=== PATIENT | female | born 1970 | race Two or more races ===

== ENCOUNTER → 2020-03-10 12:02 | Outpatient (BNVA) | payer OTHER, SELFPAY | PROVIDERS: PCP Family Medicine; Referring Provider Family Medicine; Visit Provider Physician Assistant | DX: T84.84XA Pain due to internal orthopedic prosthetic devices, implants and grafts, initial encounter (principal); E11.69 Type 2 diabetes mellitus with other specified complication; F17.200 Nicotine dependence, unspecified, uncomplicated | CPT/HCPCS: 99213 ==

== ENCOUNTER 2020-07-01 14:19 | Inpatient (IN) | payer OTHER, SELFPAY ==
[2020-07-01] VITALS (11 sets, daily range): BP systolic 159–178; BP diastolic 19–88; PULSE 82–114; RESP 16–18; TEMP 36.7–37.2; O2SAT 97–99; BMI 27.1
--- NOTE | 2020-07-01 14:26 | ED.SKABFB ---
HPI - Skin/Abscess/Foreign Bdy General Chief complaint: Extremity Problem Stated complaint: FOOT INFECTION Time Seen by Provider: 07/01/20 14:26 Source: patient Mode of arrival: ambulatory Limitations: no limitations History of Present Illness HPI narrative: L foot erythema and pain - hx of same in past, has had R TM amputation at [facility] noted since 06/22 has had worsening L foot pain/swelling and yellow filled blisters, has not been able to get into wound clinic MD complaint: abscess/boil and lesion Onset (ago): week(s) (1) Tetanus up to date: yes Location: L foot Severity: moderate Quality: burning Pain Consistency: constant Relieving factors: none Exacerbating factors: movement Context: other (hx of chronic infection ) Associated symptoms: fever, chills and nausea Treatments prior to arrival: bandages Related Data Home Medications Medication Instructions Recorded Confirmed gabapentin 100 mg capsule 100 mg PO BEDTIME 03/01/20 07/01/20 methadone 40 mg soluble tablet 47 mg PO DAILY 03/01/20 07/01/20 quetiapine 25 mg tablet 25 mg PO DAILY 03/01/20 07/01/20 sennosides 8.6 mg tablet 8.6 mg PO BEDTIME 03/01/20 07/01/20 alprazolam 1 - 2 mg PO DAILY 07/01/20 07/01/20 docusate sodium 100 mg PO DAILY 07/01/20 07/01/20 trazodone 100 - 200 mg PO BEDTIME PRN 07/01/20 07/01/20 Allergies Allergy/AdvReac Type Severity Reaction Status Date / Time No Known Allergies Allergy Verified 03/10/20 13:02 [No Known Allergies*] Review of Systems Review of Systems: Constitutional : pos Fever, pos Chills ENT/Mouth : No sore throat, No Rhinorrhea Eyes: No Eye Pain, No Swelling, No Redness Cardiovascular : No Chest Pain, No SOB Respiratory : No Cough, No Sputum Gastrointestinal : No Nausea, No Vomiting, No Diarrhea, No abdominal Pain Genitourinary : No Dysuria, No Hematuria Musculoskeletal : No joint pain, No Myalgias, No Joint Swelling Skin : pos Skin Lesions, positive skin rash Neuro : No Weakness, No Numbness, No Headache Psych : No Anxiety, No Depression Heme/Lymph: No Bruising, No Bleeding,No Lymphadenopathy Endocrine : No Polyuria, No Polydipsia All other systems reviewed and are negative [facility] Past Medical History Attestation statement: The following information was validated with the patient. Source: old records reviewed Medical History Anemia Asthma CKD (chronic kidney disease) Diabetes HTN (hypertension) Osteomyelitis Surgical History History of ankle surgery Family History Family History Father No problems noted. Mother No problems noted. Social History Social History (Updated 07/01/20 @ 15:21 by Agnes Pettit DO) Smoking Status: Current every day smoker Advance Directives: Yes Advance Directives Information Provided: Yes Advance Directives on File: No Physical Exam Vital Signs: Vital Signs: Last Vital Signs Temp 98.1 F 07/01/20 14:30 Pulse 99 07/01/20 14:30 Resp 16 07/01/20 14:30 BP 168/64 H 07/01/20 14:30 Pulse Ox 99 07/01/20 14:30 Body Mass Index 27.1 Appearance: Alert. Oriented X3. No acute distress. Eyes: Pupils equal, round and reactive to light. ENT: Pharynx normal. Neck: Normal inspection. Neck supple. CVS: Normal heart rate and rhythm. Pulses normal. Respiratory: No respiratory distress. Breath sounds normal. Abdomen: Soft and nontender. Skin: Skin warm and dry. Normal skin color. Normal skin turgor. Extremities: No lower extremity edema. L foot - prior amputation 4th digit - she is warm to touch, L great toe thickened likely dry gangrene, overlying dorsum erythema and swelling with white fluid filled flat vesicles extending up to ankle Neuro: Oriented X 3. No motor deficit. No sensory deficit. Course Course Course Narrative: chronic anemia, hx of same in past, will transfuse 2UPRBCs patient is not taking her Fe MDM - Skin/Abscess/Foreign Bdy MDM Narrative Medical decision making narrative: 50 yo female DM, chronic L foot osteo, now with overlying cellulitis, has hardware in ankle, she is anemic as well and not taking her Fe, for the last week c/o fevers and worsening erythema - will need labs, xray, IV antibiotics for cellulitis, planned admit. Lab Data Result diagrams: 07/01/20 15:49 07/01/20 15:49 Labs: Lab Results 07/01/20 07/01/20 Range/Units 15:46 15:49 WBC 8.4 (4.8-10.8) X10*3/uL RBC 2.20 L (4.20-5.50) X10*6/uL Hgb 6.1 L* (12.0-16.0) g/dl Hct 19.3 L* (37-47) % MCV 87.7 (80-98) fL MCH 27.7 (27.0-33.0) pg MCHC 31.6 (31.0-35.0) g/dl RDW 13.3 (11.0-16.0) % Plt Count 260 (160-400) X10*3/uL MPV 10.8 (9.4-12.3) fL Immature Gran % (Auto) 1.1 H (0.0-0.4) % Neut % (Auto) 83.6 H (45-73) % Lymph % (Auto) 9.8 L (20-40) % [place] % (Auto) 4.3 (2-11) % Eos % (Auto) 0.8 (0-4) % Baso % (Auto) 0.4 (0-2) % Lymph # (Auto) 0.8 L (1.2-4.9) X10*3/uL [place] # (Auto) 0.4 (0.1-1.2) X10*3/uL Eos # (Auto) 0.1 (0.0-0.4) X10*3/uL Baso # (Auto) 0.0 (0.0-0.2) X10*3/uL Abs Immat Gran (auto) 0.09 H (0.00-0.03) X10*3/uL Absolute Neuts (auto) 7.0 (2.0-8.3) X10*3/uL Absolute Nucleated RBC 0.000 (0.0-0.012) X10*3/uL Nucleated RBC % (auto) 0.0 (0.0-0.2) /100WBC PT 14.3 H (10.8-13.0) SEC INR 1.2 H (0.9-1.1) APTT 29.7 (24.1-38.0) SEC ECG Data Attestation: I personally reviewed and interpreted this ECG as follows: ECG interpretation date: 07/01/20 ECG interpretation time: 15:33 Interpretation: Rate: 89 Rhythm: NSR [place]: normal Normal P waves. Normal GIL[place]. Normal QRS complex. ST T wave : normal no JAZMÍN qTC: normal prior studies: no acute ischemia The study has been interpreted contemporaneously by me. . Discharge Plan Discharge Clinical Impression: Cellulitis Qualifiers: Site of cellulitis: extremity Site of cellulitis of extremity: lower extremity Laterality: left Qualified Code(s): L03.116 - Cellulitis of left lower limb Anemia Qualifiers: Anemia type: other cause Other causes of anemia: other cause, not classified Qualified Code(s): D64.89 - Other specified anemias Patient Disposition: Admitted As Inpatient
--- NOTE | 2020-07-01 14:35 | ECG_ITS ---
Test Reason : EXTREMITY PAIN Blood Pressure : / mmHG Vent. Rate : 089 BPM Atrial Rate : 089 BPM P-R Int : 142 ms QRS Dur : 078 ms QT Int : 364 ms P-R-T Axes : 052 047 052 degrees QTc Int : 442 ms Normal sinus rhythm Normal ECG No previous ECGs available Referred By: Agnes Pettit Electronically Signed By:Lazaro Solorio
--- NOTE | 2020-07-01 14:37 | XR_ITS ---
EXAMINATION: XR FOOT, LEFT CLINICAL INFORMATION: Evaluate for osteomyelitis. COMPARISON: 01/18/2020 TECHNIQUE: AP, lateral, and oblique views of the left foot. FINDINGS: Prior amputation of the fourth digit from the metatarsophalangeal joint. There is progressive erosion of the distal aspect of the first digit distal phalanx, with essential absence of the tuft at this time. There is soft tissue swelling with soft tissue gas present at this location. No additional erosive osseous changes. Alignment is otherwise maintained. Partially visualized fixation hardware at the distal fibula. Corticated ossification at the medial malleolus is likely from previous trauma. XR/XR foot LT min 3V IMPRESSION: Soft tissue swelling with gas at the distal aspect of the first digit. Associated erosion of the distal aspect of the first digit distal phalanx. This is consistent with osteomyelitis.
--- NOTE | 2020-07-01 14:59 | PC.NURSE ---
pedal pulses on left foot present via doppler. positive pedal pulse and posterior tibialis pulse. aware
[2020-07-01 15:57] LABS: MANUAL DIFF FLAG NO
[2020-07-01 16:04] LABS: INTERNATIONAL NORM RATIO 1.2 (0.9-1.1); Prothrombin Time 14.3 SEC (10.8-13.0)
[2020-07-01 16:07] LABS: Partial Thromboplastin Time 29.7 SEC (24.1-38.0)
[2020-07-01 16:09] LABS: Basophils Percent Auto 0.4 % (0-2); Eosinophils Absolute Auto 0.1 X10*3/uL (0.0-0.4); Eosinophils Percent Auto 0.8 % (0-4); Imm Gran Abs Auto 0.09 X10*3/uL (0.00-0.03); Imm Gran Pct Auto 1.1 % (0.0-0.4); Lymphocytes Absolute Auto 0.8 X10*3/uL (1.2-4.9); Lymphocytes Percent Auto 9.8 % (20-40); Mean Corpuscular HGB Conc 31.6 g/dl (31.0-35.0); Mean Corpuscular Hemoglobin 27.7 pg (27.0-33.0); Mean Corpuscular Volume 87.7 fL (80-98); Mean Platelet Volume 10.8 fL (9.4-12.3); Monocytes Absolute Auto 0.4 X10*3/uL (0.1-1.2); Monocytes Percent Auto 4.3 % (2-11); Neutrophils Percent Auto 83.6 % (45-73); Platelet Count 260 X10*3/uL (160-400); Red Cell Distribution Width 13.3 % (11.0-16.0); White Blood Count 8.4 X10*3/uL (4.8-10.8)
[2020-07-01 16:10] LABS: Hemoglobin 6.1 g/dl (12.0-16.0)
--- NOTE | 2020-07-01 16:10 | PC.NURSE ---
pt very difficult iv stick. iv established, blood labs and cx obtained and sent. medicated per emar.
[2020-07-01 16:11] LABS: Hematocrit 19.3 % (37-47)
[2020-07-01 16:17] LABS: Lactic Acid 0.9 mmol/L (0.5-2.0)
[2020-07-01 16:18] LABS: COVID-19 Test Negative (Negative); IDNOW Serial# 9DD0AD1C
[2020-07-01] MEDS: oxyCODONE HCl Immed Release 15 MG TABLET PO (16:20)
[2020-07-01] MEDS: Piperacillin Sodium/Tazobactam 3.375 GM in 0.9 % Sodium Chloride 50 ML IV (16:20)
[2020-07-01 16:30] LABS: Alanine Aminotransferase 11 U/L (0-31); Albumin Level 2.6 g/dL (3.5-5.0); Alkaline Phosphatase 241 U/L (39-117); Anion Gap 14 (12-20); Aspartate Amino Transferase 13 U/L (5-31); Bilirubin Direct 0.3 mg/dL (0.0-0.5); Bilirubin Total 0.5 mg/dL (0.0-1.0); Blood Urea Nitrogen 20 mg/dL (9-16); Calcium 7.9 mg/dL (8.4-10.2); Carbon Dioxide 23 mmol/L (22-29); Chloride 101 mmol/L (96-108); Creatinine Clr Calc Pharmacy 32.8; Estimated Glomerular Filt Rate 30; Glucose Random 629 mg/dL (60-115); Magnesium 1.7 mg/dL (1.6-2.6); Potassium 4.6 mmol/l (3.3-5.1); Sodium 133 mmol/L (135-145); Total Protein 6.7 g/dL (6.5-8.0)
[2020-07-01 16:32] LABS: Creatinine Clr Calc Pharmacy 32.6; Estimated Glomerular Filt Rate 30
[2020-07-01] MEDS: vancomycin HCL 1,000 MG in 0.9 % Sodium Chloride 250 ML 270 MG IV (16:44)
[2020-07-01 17:07] LABS: Erythrocyte Sedimentation Rate > 140 MM/HR (0-20)
--- NOTE | 2020-07-01 17:38 | CT_ITS ---
EXAMINATION: CT OF LEFT FOOT WITHOUT CONTRAST CT LEFT LOWER LEG WITHOUT CONTRAST CLINICAL INFORMATION: Gas gangrene. COMPARISON: CT left foot 01/18/2020. MRI left foot 01/19/2020. Plain film left ankle 02/03/2020. Plain film left foot 07/01/2020. TECHNIQUE: Axial images obtained through the left lower leg and left foot. Coronal and sagittal reformatted images are performed at CT scanner DLP: 407 mGy-cm. FINDINGS: CT LEFT FOOT: There is bone destruction of the distal phalanges of the great toe. There is gas in the surrounding soft tissues. Findings consistent with osteomyelitis. No abscess. Patient has had prior amputation of the 4th toe at the level of left 4th metatarsal phalangeal joint. No additional bone destruction of the foot. No abnormal periosteal reaction. There is a posterior calcaneal spur at the insertion of the Achilles tendon. CT LEFT LOWER LEG: Orthopedic plate and screw in the lateral malleolus. There is endosteal healing of the lateral malleolar fracture. There is no bone destruction. No abnormal periosteal reaction. No radiographic evidence for osteomyelitis. There is no air in the soft tissues of the leg. No focal fluid collection or abscess. Small bone island in the distal femur incidentally noted. Small degenerative spurs at the anterior articular margin of the distal tibia at the ankle joint. CT/CT lower leg LT wo con IMPRESSION: 1. CT left foot. Destruction of the distal phalanx of the great toe. There is gas in the surrounding soft tissues. Findings consistent with osteomyelitis. 2. CT left lower leg. No evidence for osteomyelitis. No air in the soft tissues. Status post ORIF lateral malleolar fracture. Endosteal healing of lateral malleolar fracture.
--- NOTE | 2020-07-01 18:00 | PC.NURSE ---
pt recieving blood products at this time, no apparent reaction within first 15 minutes, unit transfusing at this time, wctm.
[2020-07-01] MEDS: Insulin Regular, Human 100 UNIT/ML 3 ML VIAL 10 UNIT IVPUSH (23:05)
[2020-07-01] MEDS: HYDROmorphone HCl 1 MG/ML SYRINGE IVPUSH (23:06)
--- NOTE | 2020-07-01 23:52 | P.HPHOSP_ITS ---
History of Present Illness Date of Service: 07/02/20 Chief Complaint: LLE pain 50 y/o female with an extensive PMHx including Uncontrolled diabetes s/p right transmetatarsal amputation and left 4th digit amputation who presented from home due to LLE cellulitis. Patient is a very poor historian. Reported that for the past week has been having increased erythema of the left foot associated with a blister filled of pus in the superior aspect of the left foot. Patient denies any chest pain, SOB, nausea, vomiting or fever. Does report that has been following with Wound care, last appointment on 06/22/20 where had debridement done per patient. On presentation to the ED patient is noted to be hypertensive 160/60 mmHg, no evidence of fever. Hgb of 6.1, ESR >140, creatinine improved from 2.25 to 1.77, Na of 133, Initial poct of 629, CRP of 26. ED attending treated patient with IV Vanco/Zosyn and pain meds. Orthopedic Dr Ba was consulted per ED given patient has a hardware on left ankle but after imaging was done per ortho there is no concern for infection affecting hardware, ortho to follow up in the am. Per CT of left foot there is evidence of left distal phalanx OM. Patient seen and examined at the bedside, laying down in bed in no acute distress. ROS as above otherwise negative. Physical exam showing left foot cellulitis with purulent vesicle extending from mid foot to left great toe. Sup erficial destruction of left great toe structure is evident. PMHx: Anemia Asthma CKD (chronic kidney disease) Diabetes HTN (hypertension) Osteomyelitis PSx: History of ankle surgery Right transmetatarsal amputation Left 4th digit amputation Toxic habits: Denies any hx of alcohol abuse, smoking or IVDA Review of Systems Constitutional: Constitutional: Reports as per HPI Musculoskeletal: Musculoskeletal: Reports other (Left foot pain/erythema) [facility] Medical History (Updated 07/02/20 @ 00:22 by Guevara Villeda MD) Anemia Asthma CKD (chronic kidney disease) Diabetes HTN (hypertension) Osteomyelitis Functional capacity: independent ambulation Family History Father No problems noted. Mother No problems noted. Surgical History History of ankle surgery Social History Alcohol intake: never Smoking Status: Current every day smoker Use of substances other than those prescribed or required for medical reasons: No Advance Directives: Yes Advance Directives Information Provided: Yes Advance Directives on File: No Meds Allergies Allergy/AdvReac Type Severity Reaction Status Date / Time No Known Allergies Allergy Verified 03/10/20 13:02 [No Known Allergies*] Home Medications Medication Instructions Recorded Confirmed Type gabapentin 100 mg capsule 100 mg PO BEDTIME 03/01/20 07/01/20 History methadone 40 mg soluble tablet 47 mg PO DAILY 03/01/20 07/01/20 History quetiapine 25 mg tablet 25 mg PO DAILY 03/01/20 07/01/20 History sennosides 8.6 mg tablet 8.6 mg PO BEDTIME 03/01/20 07/01/20 History alprazolam 1 - 2 mg PO DAILY 07/01/20 07/01/20 History docusate sodium 100 mg PO DAILY 07/01/20 07/01/20 History trazodone 100 - 200 mg PO BEDTIME PRN 07/01/20 07/01/20 History Physical Exam Vital Signs and Narrative: Vital Signs: Last Vital Signs Temp 98.9 F 07/01/20 23:07 Pulse 85 07/01/20 23:22 Resp 16 07/01/20 23:22 BP 176/81 H 07/01/20 23:22 Pulse Ox 98 07/01/20 23:22 Body Mass Index 27.1 Const: General: cooperative, comfortable and no acute distress Orientation/consciousness: oriented to person, oriented to place and oriented to time HENMT: Head: Yes normal to inspection Eyes: General: appearance normal, both eyes and all related structures Neck: Yes normal visual inspection Chest: Chest palpation & inspection: normal inspection of the chest Resp: Effort & Inspection: normal respiratory effort Auscultation: clear to auscultation bilaterally Cardio: Jugular venous distension: no JVD Rate: regular rate Rhythm: regular rhythm Heart sounds: S1 normal heart sound present and S2 normal heart sound present GI: Inspection: Yes normal to inspection Neuro: General: oriented to person, oriented to place and oriented to time Extrem: General: Yes other (Left foot cellulitis with superimposed vesicle filled of pus) Psych: Appearance: grossly normal Results Labs CBC and Chem 7: 07/01/20 15:49 07/01/20 15:49 Labs: Laboratory Results - last 24 hr 07/01/20 07/01/20 07/01/20 15:46 15:46 15:46 MCV MCH MCHC RDW Plt Count MPV Immature Gran % (Auto) Neut % (Auto) Lymph % (Auto) [place] % (Auto) Eos % (Auto) Baso % (Auto) Lymph # (Auto) [place] # (Auto) Eos # (Auto) Baso # (Auto) Abs Immat Gran (auto) Absolute Neuts (auto) Absolute Nucleated RBC Nucleated RBC % (auto) ESR PT 14.3 H INR 1.2 H APTT 29.7 Anion Gap Estim Creat Clear Calc Estimated GFR Random Glucose Lactic Acid 0.9 Calcium Magnesium Total Bilirubin Direct Bilirubin AST ALT Alkaline Phosphatase Total Creatine Kinase C-Reactive Protein Total Protein Albumin COVID-19 (LESLY) Negative COVID-19 Clin Com See Note Blood Type Antibody Screen Crossmatch 07/01/20 07/01/20 07/01/20 15:46 15:49 15:49 MCV 87.7 MCH 27.7 MCHC 31.6 RDW 13.3 Plt Count 260 MPV 10.8 Immature Gran % (Auto) 1.1 H Neut % (Auto) 83.6 H Lymph % (Auto) 9.8 L [place] % (Auto) 4.3 Eos % (Auto) 0.8 Baso % (Auto) 0.4 Lymph # (Auto) 0.8 L [place] # (Auto) 0.4 Eos # (Auto) 0.1 Baso # (Auto) 0.0 Abs Immat Gran (auto) 0.09 H Absolute Neuts (auto) 7.0 Absolute Nucleated RBC 0.000 Nucleated RBC % (auto) 0.0 ESR > 140 H PT INR APTT Anion Gap Estim Creat Clear Calc 32.6 Estimated GFR 30 Random Glucose Lactic Acid Calcium Magnesium Total Bilirubin Direct Bilirubin AST ALT Alkaline Phosphatase Total Creatine Kinase 22 L C-Reactive Protein Total Protein Albumin COVID-19 (LESLY) COVID-19 Clin Com Blood Type Antibody Screen Crossmatch 07/01/20 07/01/20 15:49 16:23 MCV MCH MCHC RDW Plt Count MPV Immature Gran % (Auto) Neut % (Auto) Lymph % (Auto) [place] % (Auto) Eos % (Auto) Baso % (Auto) Lymph # (Auto) [place] # (Auto) Eos # (Auto) Baso # (Auto) Abs Immat Gran (auto) Absolute Neuts (auto) Absolute Nucleated RBC Nucleated RBC % (auto) ESR PT INR APTT Anion Gap 14 Estim Creat Clear Calc 32.8 Estimated GFR 30 Random Glucose 629 H* Lactic Acid Calcium 7.9 L Magnesium 1.7 Total Bilirubin 0.5 Direct Bilirubin 0.3 AST 13 ALT 11 Alkaline Phosphatase 241 H Total Creatine Kinase C-Reactive Protein 26.50 H Total Protein 6.7 Albumin 2.6 L COVID-19 (LESLY) COVID-19 Clin Com Blood Type A Negative Antibody Screen NEGATIVE Crossmatch See Detail Imaging Radiologist's Impressions: Impressions Foot X-Ray 07/01/20 14:37 IMPRESSION: Soft tissue swelling with gas at the distal aspect of the first digit. Associated erosion of the distal aspect of the first digit distal phalanx. This is consistent with osteomyelitis. Foot CT 07/01/20 17:37 IMPRESSION: 1. CT left foot. Destruction of the distal phalanx of the great toe. There is gas in the surrounding soft tissues. Findings consistent with osteomyelitis. 2. CT left lower leg. No evidence for osteomyelitis. No air in the soft tissues. Status post ORIF lateral malleolar fracture. Endosteal healing of lateral malleolar fracture. Lower Extremity CT 07/01/20 17:38 IMPRESSION: 1. CT left foot. Destruction of the distal phalanx of the great toe. There is gas in the surrounding soft tissues. Findings consistent with osteomyelitis. 2. CT left lower leg. No evidence for osteomyelitis. No air in the soft tissues. Status post ORIF lateral malleolar fracture. Endosteal healing of lateral malleolar fracture. Assessment and Plan (1) Foot osteomyelitis, left: Status: Acute S/p one dose of Vancomycin and Zosyn Continue with Vancomycin for gram positive coverage Continue with Zosyn for gram neg coverage Continue with gentle hydration and monitor renal function closely Pharmacy consult for vanco adjustment infectious disease consult Follow up Bcx (2) Anemia: Qualifiers: Anemia type: other cause Other causes of anemia: other cause, not classified Qualified Code(s): D64.89 - Other specified anemias Status: Acute Hgb of 6.1 s/p 2 units of PRBC per ED Follow up Repeat CBC (3) Acute kidney injury superimposed on CKD: Status: Acute creatinine improving from prior 2.2 to 1.7 Continue with gentle IV hydration and monitor electrolytes closely nephrology consult in the am (4) HTN (hypertension): Status: Inactive one dose of lopressor to be given now Obtaine medical records from PCP and outside pharmacy regarding medicatiosn patient is taking at home
[2020-07-02] VITALS (10 sets, daily range): BP systolic 102–197; BP diastolic 63–84; PULSE 63–91; RESP 3–19; TEMP 36.6–37.4; O2SAT 95–98
[2020-07-02] MEDS: 0.9 % Sodium Chloride 1,000 ML 75 ML IVCONT ×3 (00:49→19:50)
[2020-07-02] MEDS: Metoprolol Tartrate 5 MG/5 ML VIAL 2.5 MG IVPUSH (00:58)
[2020-07-02] MEDS: Piperacillin Sodium/Tazobactam 3.375 GM in 0.9 % Sodium Chloride 50 ML IV ×5 (01:00→22:59)
[2020-07-02 01:02] LABS: MANUAL DIFF FLAG NO
[2020-07-02 01:04] LABS: Basophils Percent Auto 0.3 % (0-2); Eosinophils Absolute Auto 0.2 X10*3/uL (0.0-0.4); Hematocrit 26.9 % (37-47); Hemoglobin 8.8 g/dl (12.0-16.0); Imm Gran Abs Auto 0.09 X10*3/uL (0.00-0.03); Imm Gran Pct Auto 0.9 % (0.0-0.4); Lymphocytes Percent Auto 9.3 % (20-40); Mean Corpuscular HGB Conc 32.7 g/dl (31.0-35.0); Mean Corpuscular Volume 88.8 fL (80-98); Mean Platelet Volume 10.1 fL (9.4-12.3); Monocytes Absolute Auto 0.6 X10*3/uL (0.1-1.2); Monocytes Percent Auto 6.2 % (2-11); NRBC Pct Auto 0.2 /100WBC (0.0-0.2); Neutrophils Absolute Auto 8.3 X10*3/uL (2.0-8.3); Neutrophils Percent Auto 81.3 % (45-73); Platelet Count 243 X10*3/uL (160-400); Red Blood Count 3.03 X10*6/uL (4.20-5.50); Red Cell Distribution Width 13.4 % (11.0-16.0); White Blood Count 10.2 X10*3/uL (4.8-10.8)
--- NOTE | 2020-07-02 01:51 | PC.NURSE ---
hospitalist called and heparin sc is not to be given and will be d/c due to pt is a pre surgica pt
[2020-07-02 02:54] LABS: Glucose, Whole Blood 187 mg/dL (60-115)
[2020-07-02] MEDS: vancomycin HCL 500 MG in 0.9 % Sodium Chloride 100 ML 110 MG IV (04:24)
[2020-07-02 06:51] LABS: MANUAL DIFF FLAG NO
[2020-07-02 06:58] LABS: Basophils Percent Auto 0.4 % (0-2); Eosinophils Absolute Auto 0.2 X10*3/uL (0.0-0.4); Eosinophils Percent Auto 2.7 % (0-4); Hematocrit 24.4 % (37-47); Imm Gran Abs Auto 0.11 X10*3/uL (0.00-0.03); Imm Gran Pct Auto 1.4 % (0.0-0.4); Lymphocytes Absolute Auto 0.9 X10*3/uL (1.2-4.9); Mean Corpuscular HGB Conc 32.8 g/dl (31.0-35.0); Mean Corpuscular Volume 88.4 fL (80-98); Mean Platelet Volume 10.6 fL (9.4-12.3); Monocytes Absolute Auto 0.4 X10*3/uL (0.1-1.2); Monocytes Percent Auto 5.2 % (2-11); Neutrophils Percent Auto 78.3 % (45-73); Platelet Count 221 X10*3/uL (160-400); Red Blood Count 2.76 X10*6/uL (4.20-5.50); Red Cell Distribution Width 13.4 % (11.0-16.0); White Blood Count 7.7 X10*3/uL (4.8-10.8)
[2020-07-02 07:32] LABS: Anion Gap 13 (12-20); Blood Urea Nitrogen 18 mg/dL (9-16); Calcium 7.5 mg/dL (8.4-10.2); Carbon Dioxide 23 mmol/L (22-29); Chloride 105 mmol/L (96-108); Creatinine Clr Calc Pharmacy 38.2; Estimated Glomerular Filt Rate 36; Glucose Random 208 mg/dL (60-115); Potassium 4.1 mmol/l (3.3-5.1); Sodium 137 mmol/L (135-145)
[2020-07-02 07:35] LABS: Glucose, Whole Blood 326 mg/dL (60-115)
[2020-07-02 08:31] LABS: Glucose, Whole Blood 203 mg/dL (60-115)
[2020-07-02] MEDS: Insulin Lispro 100 UNIT/ML 3 ML VIAL SUBCUT ×3 (08:39→22:01)
--- NOTE | 2020-07-02 11:15 | MHC.RECOVSUP ---
Recovery Support note: This engineering writer spoke with Pancho at [facility] ([phone]) who reported that patient receives 47mg of methadone from their clinic. Reports patient was given two bottles on Sunday, one bottle for 07/01 and one for 07/02. This engineering writer passed this info along to FAISAL Davies.
--- NOTE | 2020-07-02 12:02 | P.CONNP_ITS ---
History of Present Illness Reason for Consult Consult date: 07/02/20 Reason for consult: WARNER Chief Complaint Chief complaint: LLE CELLULITIS History of Present Illness Narrative: 50 y/o hF adm with dibateic foot infection of L foot and we were asked to see her re WARNER on CKD Per PT she gets seen in wound care and her L foot has gotten prog worse. She deneis GH/dyuria. No NSAIDs use. PMHx: Anemia Asthma CKD (chronic kidney disease) Diabetes HTN (hypertension) Osteomyelitis Review of Systems Review of Systems Constitutional : pos Fever, pos Chills ENT/Mouth : No sore throat, No Rhinorrhea Eyes: No Eye Pain, No Swelling, No Redness Cardiovascular : No Chest Pain, No SOB Respiratory : No Cough, No Sputum Gastrointestinal : No Nausea, No Vomiting, No Diarrhea, No abdominal Pain Genitourinary : No Dysuria, No Hematuria Musculoskeletal : No joint pain, No Myalgias, No Joint Swelling Skin : pos Skin Lesions, positive skin rash Neuro : No Weakness, No Numbness, No Headache Psych : No Anxiety, No Depression Heme/Lymph: No Bruising, No Bleeding,No Lymphadenopathy Endocrine : No Polyuria, No Polydipsia All other systems reviewed and are negative Constitutional: Reports as per HPI Musculoskeletal: Reports other (Left foot pain/erythema) [facility] Past Medical History Medical History (Updated 07/02/20 @ 00:22 by Guevara Villeda MD) Anemia Asthma CKD (chronic kidney disease) Diabetes HTN (hypertension) Osteomyelitis Functional capacity: independent ambulation Family History Family History Father No problems noted. Mother No problems noted. Surgical History Surgical History History of ankle surgery Social History Social History Alcohol intake: never Smoking Status: Current every day smoker Use of substances other than those prescribed or required for medical reasons: No Advance Directives: Yes Advance Directives Information Provided: Yes Advance Directives on File: No Meds Allergies Allergy/AdvReac Type Severity Reaction Status Date / Time No Known Allergies Allergy Verified 03/10/20 13:02 [No Known Allergies*] Home Medications Medication Instructions Recorded Confirmed Type gabapentin 100 mg capsule 100 mg PO BEDTIME 03/01/20 07/01/20 History methadone 40 mg soluble tablet 47 mg PO DAILY 03/01/20 07/01/20 History quetiapine 25 mg tablet 25 mg PO DAILY 03/01/20 07/01/20 History sennosides 8.6 mg tablet 8.6 mg PO BEDTIME 03/01/20 07/01/20 History alprazolam 1 - 2 mg PO DAILY 07/01/20 07/01/20 History docusate sodium 100 mg PO DAILY 07/01/20 07/01/20 History trazodone 100 - 200 mg PO BEDTIME PRN 07/01/20 07/01/20 History Physical Exam Vital Signs: Last Vital Signs Temp 98.9 F 07/01/20 23:07 Pulse 63 07/02/20 06:14 Resp 16 07/02/20 06:14 BP 102/68 07/02/20 06:14 Pulse Ox 96 07/02/20 06:14 Body Mass Index 27.1 Const General: cooperative, comfortable and no acute distress Orientation/consciousness: oriented to person, oriented to place and oriented to time HENMT Head: Yes normal to inspection Eyes General: appearance normal, both eyes and all related structures Neck Neck: Yes normal visual inspection Chest Chest palpation & inspection: normal inspection of the chest Resp Effort & Inspection: normal respiratory effort Auscultation: clear to auscultation bilaterally Cardio Jugular venous distension: no JVD Rate: regular rate Rhythm: regular rhythm Heart sounds: S1 normal heart sound present and S2 normal heart sound present GI Inspection: Yes normal to inspection Neuro General: oriented to person, oriented to place and oriented to time Extrem General: Yes other (Left foot cellulitis with superimposed vesicle filled of pus) Psych Appearance: grossly normal Results Lab Results Result Diagrams: 07/02/20 06:14 07/02/20 06:14 Lab results: Chemistry 07/01/20 07/01/20 07/02/20 15:46 15:49 06:14 Sodium 133 L 137 Potassium 4.6 4.1 Carbon Dioxide 23 23 BUN 20 H 18 H Creatinine 1.78 H 1.77 H 1.52 H Calcium 7.9 L 7.5 L Hematology 07/01/20 07/02/20 07/02/20 15:49 00:48 06:14 WBC 8.4 10.2 7.7 Hgb 6.1 L* 8.8 L D 8.0 L Plt Count 260 243 221 Assessment and Plan (1) Foot osteomyelitis, left: Status: Acute (2) Anemia: Qualifiers: Anemia type: other cause Other causes of anemia: other cause, not classified Qualified Code(s): D64.89 - Other specified anemias Status: Acute (3) Acute kidney injury superimposed on CKD: Status: Acute (4) HTN (hypertension): Status: Inactive 1. WARNER: SCr grad decr c/w multifact ATN vs component of pre-renal and clinical account liaison close to bsl; infection assoc GN as well chronic infla stte assoc amyolid are considerations 2. 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 Anemia: s/p xfusion 4. Osteo ? 5. DM 6. Diabetic foot infection REC: urine studies and sero as ordeed; avoid Ntoxins; will follow flakito with med team...she may be candidate for epo as outpt and alos management to delay prog CKD and protection of MBD are chronic issues to be managed as outpt
--- NOTE | 2020-07-02 13:04 | P.PNIM_ITS ---
Subjective Subjective Date of Service: 07/02/20 Interval History: Seen in f/u for osteomylitis of the foot. Has some pain Gen: no fever Resp: no sob, no cough CV: no chest, no FREDERICK, no leg edema GI: No n/v, no abd pain Neuro: No confusion Musclar sk: Pain in the foot Physical Exam Vital Signs: Vital Signs: Last Vital Signs Temp 98.9 F 07/01/20 23:07 Pulse 63 07/02/20 06:14 Resp 16 07/02/20 06:14 BP 102/68 07/02/20 06:14 Pulse Ox 96 07/02/20 06:14 Body Mass Index 27.1 General: AO X 3, no acute distress Resp: CTA bilateral CVS: S1,S2,RRR GI: +BS, NT, no distention Skin: escoriated skin on foot Neuro: motor grossly intact Psych: appropriate affect Objective Data Current Medications Generic Name Dose Route Start Last Admin Trade Name Freq PRN Reason Stop Dose Admin Alprazolam 1 mg 07/02/20 09:00 Alprazolam 0.5 Mg Tablet PO DAILY PRN Anxiety Docusate Sodium 100 mg 07/02/20 09:00 07/02/20 08:40 Docusate Sodium 100 Mg Capsule PO Not Given DAILY RANDY Sodium Chloride 1,000 mls @ 75 mls/hr 07/01/20 23:45 07/02/20 00:49 Ns IVCONT 75 mls/hr .[id number] RANDY Administration Piperacillin Sod/Tazobactam 50 mls @ 100 mls/hr 07/02/20 00:00 07/02/20 07:17 Sod 3.375 gm/ Sodium Chloride IV Infused Q6H RANDY Infusion Insulin Human Lispro 0 unit 07/02/20 07:30 07/02/20 08:39 Insulin Lispro 100 Unit/Ml 3 Ml Vial SUBCUT 07/02/20 23:54 4 unit QIDACHS RANDY Administration Protocol Pharmacy Consult 1 each 07/01/20 14:32 Consult Rx Perform Med Rec MISCELLANE ONCE PRN Consult order Pharmacy Consult 1 each 07/02/20 00:28 Consult Rx Vancomycin Dosing MISCELLANE DAILY PRN Consult order Sodium Chloride 3 ml 07/02/20 00:00 07/02/20 08:15 0.9 % Sodium Chloride Flush 3 Ml Syringe IVFLUSH Not Given QSHIFT RANDY Trazodone HCl 100 - 200 mg 07/01/20 23:47 Trazodone Hcl 100 Mg Tablet PO BEDTIME PRN Insomnia Labs CBC & Chem 7: 07/02/20 06:14 07/02/20 06:14 Assessment and Plan (1) Foot osteomyelitis, left: Status: Acute (2) Anemia: Status: Acute (3) Acute kidney injury superimposed on CKD: Status: Acute (4) HTN (hypertension): Status: Inactive Assessment and Plan: 1. 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 Anemia: s/p transfusion, epogen as outpatient 4. Osteomylitis/diabetic foot ulcer of toe, Abx (Zosyn, Vanco) for now, ID consult, will likely need amputation 5. DM--Insulin
[2020-07-02 15:29] LABS: Vancomycin Random 16.2 mcg/mL (15-20)
[2020-07-02 16:49] LABS: Glucose, Whole Blood 213 mg/dL (60-115)
[2020-07-02 18:00] LABS: Glucose, Whole Blood 128 mg/dL (60-115)
[2020-07-02 20:07] LABS: Glucose, Whole Blood 161 mg/dL (60-115)
[2020-07-02] MEDS: traMADoL HCL 50 MG TABLET 25 MG PO (21:58)
[2020-07-02] MEDS: Sennosides 8.6 MG TABLET PO (21:59)
[2020-07-02] MEDS: QUEtiapine Fumarate 25 MG TABLET PO (21:59)
[2020-07-02] MEDS: Metoprolol Tartrate 12.5 MG HALFTAB PO (22:00)
[2020-07-02] MEDS: Gabapentin 100 MG CAPSULE PO (22:00)
[2020-07-03] VITALS (10 sets, daily range): BP systolic 135–190; BP diastolic 72–87; PULSE 72–84; RESP 14–20; TEMP 36.3–37.2; O2SAT 97–100
[2020-07-03] MEDS: Acetaminophen 325 MG TABLET 650 MG PO (00:47)
[2020-07-03] MEDS: Piperacillin Sodium/Tazobactam 3.375 GM in 0.9 % Sodium Chloride 50 ML IV ×4 (04:56→23:15)
[2020-07-03] MEDS: Docusate Sodium 100 MG CAPSULE PO (08:09)
[2020-07-03] MEDS: Morphine Sulfate 2 MG/ML CARTRIDGE IVPUSH ×4 (08:09→21:25)
[2020-07-03 08:26] LABS: Glucose, Whole Blood 193 mg/dL (60-115)
--- NOTE | 2020-07-03 09:38 | PM.PNNEP ---
Subjective Subjective Date of Service: 07/03/20 Interval history: seen and examined discussed with medical attending denies N/V/D/SOB/CP Physical Exam Vital Signs: Vital Signs: Last Vital Signs Temp 97.4 F 07/03/20 07:52 Pulse 78 07/03/20 07:52 Resp 20 07/03/20 08:09 BP 135/72 07/03/20 07:52 Pulse Ox 99 07/03/20 07:52 Body Mass Index 27.1 Const: General: no acute distress HENMT: Head: Yes normocephalic and Yes atraumatic Neck: Neck: Yes supple Resp: Auscultation: clear to auscultation bilaterally Cardio: Heart sounds: S1 normal heart sound present and S2 normal heart sound present GI: Palpation (GI): Soft to palpation and nontender Extrem: General: Yes edema Objective Data Labs CBC & Chem 7: 07/02/20 06:14 07/02/20 06:14 Labs: Laboratory Results - last 24 hr 07/02/20 07/02/20 07/02/20 13:49 14:46 16:45 POC Glucose 128 H 213 H Random Vancomycin 16.2 07/02/20 07/03/20 20:03 07:49 POC Glucose 161 H 193 H Random Vancomycin Microbiology Microbiology Results: Microbiology 07/01/20 15:56 Blood - Venous Blood Culture - Preliminary No growth after 24 hours. 07/01/20 15:46 Blood - Venous Blood Culture - Preliminary No growth after 24 hours. Assessment & Plan Assessment and plan (1) WARNER (acute kidney injury): Status: Acute (2) Proteinuria: Status: Acute (3) Osteomyelitis: Status: Acute (4) Anemia: Status: Acute (5) CKD (chronic kidney disease) stage 3, GFR 30-59 ml/min: Status: Acute Assessment and Plan: kidney function better suspect WARNER due to compromised kidney perfusion and tubular stress cannot exclude alonso infectious nephritis proteinuria ~ 1.7 gram negative hepatitis profile complement level, serum immunofixation pending underlying CKD baseline serum creatinine ~ 1.5 mg/dl REC IVF follow kidney function and electrolytes Time Spent With Patient Time: Total time spent is greater than 50% in coordination of care (as documented) at patient's floor/unit and/or counseling patient:
[2020-07-03] MEDS: ALPRAZolam 0.5 MG TABLET 1 MG PO (11:04)
[2020-07-03] MEDS: oxyCODONE HCl Immed Release 5 MG TABLET PO ×2 (11:04→18:17)
[2020-07-03] MEDS: 0.9 % Sodium Chloride 1,000 ML 75 ML IVCONT (11:45)
[2020-07-03 11:49] LABS: Glucose, Whole Blood 234 mg/dL (60-115)
--- NOTE | 2020-07-03 12:29 | HO.PM.IMPN ---
Subjective Subjective Date of Service: 07/03/20 Interval History: Seen in f/u for diabetic foot ulcer and possible osteomylitis. She has pain in the foot and is very anxious Review of Systems Gen: no fever Resp: no sob, no cough CV: no chest, no FREDERICK, no leg edema GI: No n/v, no abd pain Neuro: No confusion pain in the foot Review of Systems: Yes all other systems are reviewed and are negative Physical Exam Vital Signs: Vital Signs: Last Vital Signs Temp 98.7 F 07/03/20 12:00 Pulse 84 07/03/20 12:00 Resp 18 07/03/20 12:11 BP 190/79 H 07/03/20 12:00 Pulse Ox 99 07/03/20 12:00 e Body Mass Index 27.1 General: AO X 3, no acute distress Resp: CTA bilateral CVS: S1,S2,RRR GI: +BS, NT, no distention Skin: Neuro: motor grossly intact Psych: appropriate affect Objective Data Current Medications Generic Name Dose Route Start Last Admin Trade Name Luizq PRN Reason Stop Dose Admin Alprazolam 1 mg 07/02/20 09:00 07/03/20 11:04 Alprazolam 0.5 Mg Tablet PO 1 mg DAILY PRN Administration Anxiety Docusate Sodium 100 mg 07/02/20 09:00 07/03/20 08:09 Docusate Sodium 100 Mg Capsule PO 100 mg DAILY RANDY Administration Gabapentin 100 mg 07/02/20 21:00 07/02/20 22:00 Gabapentin 100 Mg Capsule PO 100 mg BEDTIME RANDY Administration Sodium Chloride 1,000 mls @ 75 mls/hr 07/01/20 23:45 07/03/20 11:45 Ns IVCONT 75 mls/hr .[id number] RANDY Administration Piperacillin Sod/Tazobactam 50 mls @ 100 mls/hr 07/02/20 00:00 07/03/20 12:11 Sod 3.375 gm/ Sodium Chloride IV 100 mls/hr Q6H RANDY Administration Insulin Human Lispro 0 unit 07/03/20 16:30 Insulin Lispro 100 Unit/Ml 3 Ml Vial SUBCUT QIDACHS RANDY Protocol Methadone HCl 50 mg 07/02/20 17:45 07/03/20 08:09 Methadone Hcl 1 Mg/0.1 Ml Oral.Conc PO 50 mg DAILY RANDY Administration Morphine Sulfate 2 mg 07/03/20 07:45 07/03/20 12:11 Morphine Sulfate 2 Mg/Ml Cartridge IVPUSH 2 mg Q4H PRN Administration Pain, Severe (Pain Scale 7-10) Oxycodone HCl 5 mg 07/03/20 07:46 07/03/20 11:04 Oxycodone Hcl Immed Release 5 Mg Tablet PO 5 mg Q6H PRN Administration Pain, Moderate (Pain Scale 4-6 Pharmacy Consult 1 each 07/01/20 14:32 Consult Rx Perform Med Rec MISCELLANE ONCE PRN Consult order Pharmacy Consult 1 each 07/02/20 00:28 Consult Rx Vancomycin Dosing MISCELLANE DAILY PRN Consult order Quetiapine Fumarate 25 mg 07/03/20 21:00 Quetiapine Fumarate 25 Mg Tablet PO BEDTIME RANDY Senna 8.6 mg 07/02/20 21:00 07/02/20 21:59 Sennosides 8.6 Mg Tablet PO 8.6 mg BEDTIME RANDY Administration Sodium Chloride 3 ml 07/02/20 00:00 07/03/20 07:34 0.9 % Sodium Chloride Flush 3 Ml Syringe IVFLUSH Not Given QSHIFT RANDY Trazodone HCl 100 - 200 mg 07/01/20 23:47 Trazodone Hcl 100 Mg Tablet PO BEDTIME PRN Insomnia Labs CBC & Chem 7: 07/02/20 06:14 07/02/20 06:14 Microbiology Microbiology Results: Microbiology 07/01/20 15:56 Blood - Venous Blood Culture - Preliminary No growth after 24 hours. 07/01/20 15:46 Blood - Venous Blood Culture - Preliminary No growth after 24 hours. Assessment and Plan (1) Foot osteomyelitis, left: Status: Acute (2) Anemia: Status: Acute (3) Acute kidney injury superimposed on CKD: Status: Acute (4) HTN (hypertension): Status: Inactive Assessment and Plan: 1. 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 Repeat lab tomorrow 2. 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 Anemia: s/p transfusion, epogen as outpatient 4. Osteomylitis/diabetic foot ulcer of toe, Abx (Maeve Palomo) for now, ID consult, will likely need amputation, vascular surgery consulted. IV morphine and PO oxy for pain 5. DM--Insulinin 6. Opioid dependence--Methadone.
[2020-07-03 16:48] LABS: Glucose, Whole Blood 227 mg/dL (60-115)
[2020-07-03] MEDS: amLODIPine Besylate 5 MG TABLET PO (16:49)
[2020-07-03] MEDS: Insulin Lispro 100 UNIT/ML 3 ML VIAL SUBCUT ×2 (16:50→21:24)
[2020-07-03 20:34] LABS: Glucose, Whole Blood 175 mg/dL (60-115)
[2020-07-03] MEDS: Sennosides 8.6 MG TABLET PO (21:25)
[2020-07-03] MEDS: QUEtiapine Fumarate 25 MG TABLET PO (21:25)
[2020-07-03] MEDS: Gabapentin 100 MG CAPSULE PO (21:25)
--- NOTE | 2020-07-03 22:39 | MHC.PIE ---
P: patient noted to be visibly upset and crying unconsolably in room, patient complains of 10/10 pain, is also visibly anxious. Note; prn morphine given with little to no effect. note; prn xanax daily given at 1100. I: Dr. Maurisio Villeda notified. New order Dilauded stat to be ordered. E: Will continue to monitor.
[2020-07-03] MEDS: HYDROmorphone HCl 1 MG/ML SYRINGE IVPUSH (22:56)
[2020-07-04] VITALS (9 sets, daily range): BP systolic 143–195; BP diastolic 66–84; PULSE 83–100; RESP 16–18; TEMP 36.6–36.9; O2SAT 92–99
[2020-07-04] MEDS: 0.9 % Sodium Chloride 1,000 ML 75 ML IVCONT ×2 (03:45→17:35)
[2020-07-04] MEDS: Piperacillin Sodium/Tazobactam 3.375 GM in 0.9 % Sodium Chloride 50 ML IV ×3 (05:15→18:06)
[2020-07-04 07:49] LABS: Glucose, Whole Blood 209 mg/dL (60-115)
[2020-07-04] MEDS: Insulin Lispro 100 UNIT/ML 3 ML VIAL SUBCUT ×4 (08:20→21:19)
[2020-07-04] MEDS: Docusate Sodium 100 MG CAPSULE PO (08:20)
[2020-07-04] MEDS: amLODIPine Besylate 5 MG TABLET PO (08:20)
[2020-07-04] MEDS: Morphine Sulfate 2 MG/ML CARTRIDGE IVPUSH ×3 (08:32→19:55)
--- NOTE | 2020-07-04 08:41 | PM.PNNEP ---
Subjective Subjective Date of Service: 07/04/20 Interval history: seen and examined sleeping comfortable no reported complaints Physical Exam Vital Signs: Vital Signs: Last Vital Signs Temp 97.8 F 07/04/20 07:41 Pulse 85 07/04/20 08:20 Resp 18 07/04/20 08:32 BP 181/81 H 07/04/20 08:20 Pulse Ox 93 07/04/20 07:41 Body Mass Index 27.1 Const: General: no acute distress HENMT: Head: Yes normocephalic and Yes atraumatic Neck: Neck: Yes supple Resp: Auscultation: clear to auscultation bilaterally Cardio: Heart sounds: S1 normal heart sound present and S2 normal heart sound present GI: Palpation (GI): Soft to palpation and nontender Extrem: General: Yes edema Objective Data Labs CBC & Chem 7: 07/02/20 06:14 07/02/20 06:14 Labs: Laboratory Results - last 24 hr 07/03/20 07/03/20 07/03/20 11:42 16:41 20:31 POC Glucose 234 H 227 H 175 H 07/04/20 07:42 POC Glucose 209 H Microbiology Microbiology Results: Microbiology 07/01/20 15:56 Blood - Venous Blood Culture - Preliminary No growth after 48 hours. 07/01/20 15:46 Blood - Venous Blood Culture - Preliminary No growth after 48 hours. Assessment & Plan Assessment and plan (1) WARNER (acute kidney injury): Status: Acute (2) Proteinuria: Status: Acute (3) Osteomyelitis: Status: Acute (4) Anemia: Status: Acute (5) CKD (chronic kidney disease) stage 3, GFR 30-59 ml/min: Status: Acute Assessment and Plan: kidney function now at baseline WARNER due to compromised kidney perfusion and tubular stress cannot exclude alonso infectious nephritis proteinuria ~ 1.7 gram negative hepatitis profile complement level, serum immunofixation pending underlying CKD baseline serum creatinine ~ 1.5 mg/dl REC no need for IVF follow kidney function and electrolytes Time Spent With Patient Time: Total time spent is greater than 50% in coordination of care (as documented) at patient's floor/unit and/or counseling patient:
--- NOTE | 2020-07-04 08:46 | MHC.CM.PN ---
PATIENT LIVES WITH HER SPOUSE. SHE REPORTS THAT ALTHOUGH SHE DOES NOT HAVE A CANE OR WALKER, SHE FEELS THAT SHE NOW NEEDS THESE DEVICES. PATIENT ASKS FOR A PRESCRIPTION FOR BOTH. SPOUSE ASSISTS WITH ADLS. PATIENT IS ACTIVE WITH [facility] SPOUSE ASSISTS WITH TRANSPORT AND DAILY CHORES. HCP ON FILE AND VERIFIED. CASE MANAGEMENT FOLLOWING FOR DISCHARGE NEEDS.
--- NOTE | 2020-07-04 11:09 | HO.PM.IMPN ---
Subjective Subjective Date of Service: 07/04/20 Interval History: Seen in f/u for diabetic foot ulcer and possible osteomylitis. She has pain in the foot and is very anxious Review of Systems Gen: no fever Resp: no sob, no cough CV: no chest, no FREDERICK, no leg edema GI: No n/v, no abd pain Neuro: No confusion pain in the foot Physical Exam Vital Signs: Vital Signs: Last Vital Signs Temp 97.8 F 07/04/20 07:41 Pulse 85 07/04/20 08:20 Resp 18 07/04/20 08:32 BP 181/81 H 07/04/20 08:20 Pulse Ox 93 07/04/20 07:41 Body Mass Index 27.1 General: AO X 3, no acute distress Resp: CTA bilateral CVS: S1,S2,RRR GI: +BS, NT, no distention Skin: No rash essentially unchanged from picture from yesterday--see my note from 07/03 Neuro: motor grossly intact Psych: appropriate affect Objective Data Current Medications Generic Name Dose Route Start Last Admin Trade Name Eva PRN Reason Stop Dose Admin Alprazolam 1 mg 07/02/20 09:00 07/03/20 11:04 Alprazolam 0.5 Mg Tablet PO 1 mg DAILY PRN Administration Anxiety Amlodipine Besylate 5 mg 07/03/20 16:00 07/04/20 08:20 Amlodipine Besylate 5 Mg Tablet PO 5 mg DAILY RANDY Administration Protocol Docusate Sodium 100 mg 07/02/20 09:00 07/04/20 08:20 Docusate Sodium 100 Mg Capsule PO 100 mg DAILY RANDY Administration Gabapentin 100 mg 07/02/20 21:00 07/03/20 21:25 Gabapentin 100 Mg Capsule PO 100 mg BEDTIME RANDY Administration Sodium Chloride 1,000 mls @ 75 mls/hr 07/01/20 23:45 07/04/20 06:07 Ns IVCONT 75 mls/hr .[id number] RANDY Infusion Piperacillin Sod/Tazobactam 50 mls @ 100 mls/hr 07/02/20 00:00 07/04/20 06:07 Sod 3.375 gm/ Sodium Chloride IV Infused Q6H RANDY Infusion Insulin Human Lispro 0 unit 07/03/20 16:30 07/04/20 08:20 Insulin Lispro 100 Unit/Ml 3 Ml Vial SUBCUT 4 unit QIDACHS RANDY Administration Protocol Methadone HCl 50 mg 07/02/20 17:45 07/04/20 08:20 Methadone Hcl 1 Mg/0.1 Ml Oral.Conc PO 50 mg DAILY RANDY Administration Morphine Sulfate 2 mg 07/03/20 07:45 07/04/20 08:32 Morphine Sulfate 2 Mg/Ml Cartridge IVPUSH 2 mg Q4H PRN Administration Pain, Severe (Pain Scale 7-10) Oxycodone HCl 5 mg 07/03/20 07:46 07/03/20 18:17 Oxycodone Hcl Immed Release 5 Mg Tablet PO 5 mg Q6H PRN Administration Pain, Moderate (Pain Scale 4-6 Pharmacy Consult 1 each 07/01/20 14:32 Consult Rx Perform Med Rec MISCELLANE ONCE PRN Consult order Pharmacy Consult 1 each 07/02/20 00:28 Consult Rx Vancomycin Dosing MISCELLANE DAILY PRN Consult order Quetiapine Fumarate 25 mg 07/03/20 21:00 07/03/20 21:25 Quetiapine Fumarate 25 Mg Tablet PO 25 mg BEDTIME RANDY Administration Senna 8.6 mg 07/02/20 21:00 07/03/20 21:25 Sennosides 8.6 Mg Tablet PO 8.6 mg BEDTIME RANDY Administration Sodium Chloride 3 ml 07/02/20 00:00 07/04/20 07:51 0.9 % Sodium Chloride Flush 3 Ml Syringe IVFLUSH Not Given QSHIFT [facility] Trazodone HCl 100 - 200 mg 07/01/20 23:47 Trazodone Hcl 100 Mg Tablet PO BEDTIME PRN Insomnia Labs CBC & Chem 7: 07/02/20 06:14 07/02/20 06:14 Microbiology Microbiology Results: Microbiology 07/01/20 15:56 Blood - Venous Blood Culture - Preliminary No growth after 48 hours. 07/01/20 15:46 Blood - Venous Blood Culture - Preliminary No growth after 48 hours. Assessment and Plan (1) WARNER (acute kidney injury): Status: Acute (2) Proteinuria: Status: Acute (3) Osteomyelitis: Status: Acute (4) Anemia: Status: Acute (5) CKD (chronic kidney disease) stage 3, GFR 30-59 ml/min: Status: Acute (6) Foot osteomyelitis, left: Status: Acute (7) Acute kidney injury superimposed on CKD: Status: Acute (8) HTN (hypertension): Status: Inactive Assessment and Plan: 1. 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 Repeat lab tomorrow 2. 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 Anemia: s/p transfusion, epogen as outpatient 4. Osteomylitis/diabetic foot ulcer of toe, Abx (Zosyn, Vanco) for now, ID consult, will likely need amputation, vascular surgery consulted. IV morphine and PO oxy for pain 5. DM--Insulinin 6. Opioid dependence--Methadone.
[2020-07-04 11:59] LABS: Glucose, Whole Blood 167 mg/dL (60-115)
[2020-07-04] MEDS: ALPRAZolam 0.5 MG TABLET 1 MG PO (15:30)
[2020-07-04 16:45] LABS: Glucose, Whole Blood 177 mg/dL (60-115)
[2020-07-04] MEDS: oxyCODONE HCl Immed Release 5 MG TABLET PO (18:15)
[2020-07-04 20:37] LABS: Glucose, Whole Blood 173 mg/dL (60-115)
[2020-07-04] MEDS: Gabapentin 100 MG CAPSULE PO (21:21)
[2020-07-04] MEDS: QUEtiapine Fumarate 25 MG TABLET PO (21:21)
--- NOTE | 2020-07-05 | US_ITS ---
EXAMINATION: NONINVASIVE ASSESSMENT OF THE ARTERIES OF BOTH LOWER EXTREMITIES WITH ANKLE PRESSURE MEASUREMENTS, ANKLE BRACHIAL INDICES AND BILATERAL LOWER EXTREMITY DUPLEX CLINICAL INFORMATION: Nonhealing ulcer. TECHNIQUE: Ankle pressure measurements and ankle brachial indices were obtained of the lower extremity arterial system bilaterally. In addition, duplex Doppler techniques with wave form analysis and measurement of velocities in the common femoral, profunda femoral, superficial femoral, popliteal and tibial arteries was performed. The study was performed only at rest. COMPARISON: None FINDINGS: NONINVASIVE ASSESSMENT OF THE ARTERIES OF BOTH LOWER EXTREMITIES WITH ABIs: RIGHT LEG: Right ankle-brachial index: Unable to obtain due to overlying bandages. Right ankle pressures: Unable to obtain. LEFT LEG: Ankle-brachial index: Unable to obtain due to overlying bandages. Pressures: Unable to obtain. BILATERAL LOWER EXTREMITY DUPLEX ULTRASOUND: RIGHT LEG: Common femoral artery: 119 cm/s, Diastolic flow reversal: Yes Profunda femoris artery: 81.5 cm/s, Diastolic flow reversal: Yes Superficial femoral artery (proximal): 105 cm/s, Diastolic flow reversal: Yes Superficial femoral artery (mid): 108 cm/s, Diastolic flow reversal: Yes Superficial femoral artery (distal): 92.7 cm/s, Diastolic flow reversal: Yes Popliteal artery: 83.3 cm/s, Diastolic flow reversal: Yes Posterior tibial artery: 106 cm/s, Diastolic flow reversal: Yes LEFT LEG: Common femoral artery: 157 cm/s, Diastolic flow reversal: Yes Profunda femoris artery: 99 cm/s, Diastolic flow reversal: Yes Superficial femoral artery (proximal): 158 cm/s, Diastolic flow reversal: Yes Superficial femoral artery (mid): 170 cm/s, Diastolic flow reversal: Yes Superficial femoral artery (distal): 120 cm/s, Diastolic flow reversal: Yes Popliteal artery: 101 cm/s, Diastolic flow reversal: Yes Posterior tibial artery: 162 cm/s, Diastolic flow reversal: No There are multiple enlarged bilateral groin lymph nodes. The largest on the right measures up to 3 cm and the largest on the left measures up to 3.7 cm. US/US arterial duplex LE BI IMPRESSION: RIGHT LEG: AMINAH not obtained due to overlying bandages. No evidence of arterial insufficiency by duplex criteria. LEFT LEG: AMINAH not obtained due to overlying bandages. Mild multifocal arterial occlusive disease throughout the left lower extremity. Bilateral enlarged groin lymph nodes.
[2020-07-05] MEDS: Piperacillin Sodium/Tazobactam 3.375 GM in 0.9 % Sodium Chloride 50 ML IV ×4 (00:03→18:37)
[2020-07-05] MEDS: Morphine Sulfate 2 MG/ML CARTRIDGE IVPUSH ×3 (03:09→20:22)
[2020-07-05 03:44] VITALS: BP 183/68; PULSE 79; RESP 18; TEMP 36.6; O2SAT 96
[2020-07-05 07:52] VITALS: BP 194/83; PULSE 92; RESP 17; TEMP 36.6; O2SAT 98
[2020-07-05] MEDS: Insulin Lispro 100 UNIT/ML 3 ML VIAL SUBCUT ×4 (08:01→21:37)
[2020-07-05 08:02] VITALS: BP 194/83; PULSE 92
[2020-07-05] MEDS: amLODIPine Besylate 5 MG TABLET PO ×2 (08:02→11:22)
[2020-07-05] MEDS: 0.9 % Sodium Chloride Flush 3 ML SYRINGE IVFLUSH ×3 (08:02→20:36)
[2020-07-05 08:06] LABS: HBS Num1 36.52 mIU/mL (0-7.99); HBc Num1 8.82 S/CO (0.00-0.79); ~HepC Num1 14.24 S/CO (0.00-0.79); ~Hepatitis B Surface Antibody REACTIVE (Nonreactive); ~Hepatitis C Antibody Reactive (Nonreactive)
[2020-07-05 08:07] LABS: Glucose, Whole Blood 183 mg/dL (60-115)
[2020-07-05 08:22] LABS: HBsAGNum1 0.16 S/CO (0.00-0.99); Hepatitis B Surface Antigen Negative (Negative)
[2020-07-05 09:14] LABS: MANUAL DIFF FLAG NO
[2020-07-05 09:18] LABS: Basophils Percent Auto 0.3 % (0-2); Eosinophils Absolute Auto 0.2 X10*3/uL (0.0-0.4); Eosinophils Percent Auto 1.5 % (0-4); Hematocrit 26.4 % (37-47); Hemoglobin 8.6 g/dl (12.0-16.0); Imm Gran Abs Auto 0.05 X10*3/uL (0.00-0.03); Imm Gran Pct Auto 0.5 % (0.0-0.4); Lymphocytes Absolute Auto 1.2 X10*3/uL (1.2-4.9); Lymphocytes Percent Auto 12.3 % (20-40); Mean Corpuscular HGB Conc 32.6 g/dl (31.0-35.0); Mean Corpuscular Hemoglobin 29.5 pg (27.0-33.0); Mean Corpuscular Volume 90.4 fL (80-98); Mean Platelet Volume 9.8 fL (9.4-12.3); Monocytes Absolute Auto 0.4 X10*3/uL (0.1-1.2); Neutrophils Percent Auto 81.4 % (45-73); Platelet Count 226 X10*3/uL (160-400); Red Blood Count 2.92 X10*6/uL (4.20-5.50); Red Cell Distribution Width 13.4 % (11.0-16.0); White Blood Count 9.9 X10*3/uL (4.8-10.8)
[2020-07-05 09:48] LABS: Anion Gap 11 (12-20); Blood Urea Nitrogen 15 mg/dL (9-16); Calcium 7.9 mg/dL (8.4-10.2); Carbon Dioxide 26 mmol/L (22-29); Chloride 108 mmol/L (96-108); Creatinine Clr Calc Pharmacy 43.6; Estimated Glomerular Filt Rate 42; Glucose Random 165 mg/dL (60-115); Iron 33 mcg/dL (30-160); Percent Iron Saturation 23 % (15-50); Potassium 3.8 mmol/L (3.3-5.1); Sodium 141 mmol/L (135-145); Total Iron Binding Capacity 145 mcg/dL (228-428); Unsaturated Iron Binding 112 ug/dL
[2020-07-05 10:08] LABS: Ferritin 289 ng/mL (10-250)
[2020-07-05 10:16] LABS: Erythrocyte Sedimentation Rate 119 MM/HR (0-20)
[2020-07-05 10:40] LABS: HBc Num2 9.13 S/CO; HBc Num3 9.45 S/CO; Hepatitis B Core Antibody Reactive (Nonreactive)
--- NOTE | 2020-07-05 11:07 | P.PNNP_ITS ---
Subjective Subjective Date of Service: 07/05/20 Interval history: Seen in f/u for CKD in the context of diabetic foot ulcer and possible osteomyelitis. Physical Exam Vital Signs: Vital Signs: Last Vital Signs Temp 97.9 F 07/05/20 07:52 Pulse 92 07/05/20 08:02 Resp 17 07/05/20 07:52 BP 194/83 H 07/05/20 08:02 Pulse Ox 98 07/05/20 07:52 Body Mass Index 27.1 Const: General: comfortable Orientation/consciousness: patient oriented x3 Neck: Neck: Yes supple Resp: Auscultation: diminished lung sounds Cardio: Jugular venous distension: no JVD GI: Palpation (GI): Soft to palpation Neuro: General: patient oriented x3 Objective Data Labs CBC & Chem 7: 07/05/20 09:08 07/05/20 09:08 Labs: Laboratory Results - last 24 hr 07/02/20 07/04/20 07/04/20 12:41 11:50 16:41 WBC RBC Hgb Hct MCV MCH MCHC RDW Plt Count MPV Immature Gran % (Auto) Neut % (Auto) Lymph % (Auto) [place] % (Auto) Eos % (Auto) Baso % (Auto) Lymph # (Auto) [place] # (Auto) Eos # (Auto) Baso # (Auto) Abs Immat Gran (auto) Absolute Neuts (auto) Absolute Nucleated RBC Nucleated RBC % (auto) ESR Sodium Potassium Chloride Carbon Dioxide Anion Gap BUN Creatinine Estim Creat Clear Calc Estimated GFR POC Glucose 167 H 177 H Random Glucose Calcium Iron TIBC % Saturation Unsat Iron Binding Ferritin C-Reactive Protein Hep Bs Antigen Negative Hep Bs Antibody REACTIVE Hep B Core Total Ab Reactive Hepatitis C Ab (EIA) Reactive H 07/04/20 07/05/20 07/05/20 20:32 07:50 09:08 WBC 9.9 RBC 2.92 L Hgb 8.6 L Hct 26.4 L MCV 90.4 MCH 29.5 MCHC 32.6 RDW 13.4 Plt Count 226 MPV 9.8 Immature Gran % (Auto) 0.5 H Neut % (Auto) 81.4 H Lymph % (Auto) 12.3 L [place] % (Auto) 4.0 Eos % (Auto) 1.5 Baso % (Auto) 0.3 Lymph # (Auto) 1.2 [place] # (Auto) 0.4 Eos # (Auto) 0.2 Baso # (Auto) 0.0 Abs Immat Gran (auto) 0.05 H Absolute Neuts (auto) 8.0 Absolute Nucleated RBC 0.000 Nucleated RBC % (auto) 0.0 ESR Sodium Potassium Chloride Carbon Dioxide Anion Gap BUN Creatinine Estim Creat Clear Calc Estimated GFR POC Glucose 173 H 183 H Random Glucose Calcium Iron TIBC % Saturation Unsat Iron Binding Ferritin C-Reactive Protein Hep Bs Antigen Hep Bs Antibody Hep B Core Total Ab Hepatitis C Ab (EIA) 07/05/20 07/05/20 09:08 09:08 WBC RBC Hgb Hct MCV MCH MCHC RDW Plt Count MPV Immature Gran % (Auto) Neut % (Auto) Lymph % (Auto) [place] % (Auto) Eos % (Auto) Baso % (Auto) Lymph # (Auto) [place] # (Auto) Eos # (Auto) Baso # (Auto) Abs Immat Gran (auto) Absolute Neuts (auto) Absolute Nucleated RBC Nucleated RBC % (auto) ESR 119 H Sodium 141 Potassium 3.8 Chloride 108 Carbon Dioxide 26 Anion Gap 11 L BUN 15 Creatinine 1.33 Estim Creat Clear Calc 43.6 Estimated GFR 42 POC Glucose Random Glucose 165 H Calcium 7.9 L Iron 33 TIBC 145 L % Saturation 23 Unsat Iron Binding 112 Ferritin 289 H C-Reactive Protein 10.30 H Hep Bs Antigen Hep Bs Antibody Hep B Core Total Ab Hepatitis C Ab (EIA) Microbiology Microbiology Results: Microbiology 07/01/20 15:56 Blood - Venous Blood Culture - Preliminary No growth after 48 hours. 07/01/20 15:46 Blood - Venous Blood Culture - Preliminary No growth after 48 hours. Assessment & Plan Assessment and plan (1) CKD (chronic kidney disease) stage 3, GFR 30-59 ml/min: Problem details: (1) WARNER (acute kidney injury) (2) Proteinuria (3) Osteomyelitis (4) Anemia (5) CKD (chronic kidney disease) stage 3, GFR 30-59 ml/min Renal function close to baseline WARNER due to compromised kidney perfusion and tubular stress Cannot exclude alonso infectious nephritis proteinuria ~ 1.7 gram negative hepatitis profile complement level, serum immunofixation pending Baseline serum creatinine ~ 1.5 mg/dl C/W current supportive care. Shall follow up Status: Acute Time Spent With Patient Time: Total time spent is greater than 50% in coordination of care (as documented) at patient's floor/unit and/or counseling patient:
[2020-07-05 12:00] VITALS: BP 198/78; PULSE 88; RESP 16; TEMP 36.3; O2SAT 96
[2020-07-05 12:13] LABS: Glucose, Whole Blood 188 mg/dL (60-115)
--- NOTE | 2020-07-05 13:37 | MHC.CM.PN ---
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 career services assistant to continue to follow
--- NOTE | 2020-07-05 14:42 | P.PNIM_ITS ---
Subjective Subjective Date of Service: 07/05/20 Interval History: ongoing drainage from L great toe does not want amputation- tearful, anxious no fever Physical Exam Vital Signs: Vital Signs: Last Vital Signs Temp 97.4 F 07/05/20 12:00 Pulse 88 07/05/20 12:00 Resp 16 07/05/20 12:00 BP 198/78 H 07/05/20 12:00 Pulse Ox 96 07/05/20 12:00 Body Mass Index 27.1 Gen: in no acute distress HEENT: sclera anicteric, moist mucus membranes Neck: supple Lungs: clear to auscultation bilaterally Heart: regular rate and rhythm, no murmurs Abd: soft, non-tender, non-distended Ext: extensive ulceration and drainage of L great toe; prior L 4th toe amputation; prior R TMTA Skin: warm/well-perfused Neuro: alert and oriented x3, no focal findings Psych: anxious Objective Data Current Medications Generic Name Dose Route Start Last Admin Trade Name Freq PRN Reason Stop Dose Admin Alprazolam 1 mg 07/02/20 09:00 07/04/20 15:30 Alprazolam 0.5 Mg Tablet PO 1 mg DAILY PRN Administration Anxiety Amlodipine Besylate 10 mg 07/05/20 09:00 07/05/20 11:29 Amlodipine Besylate 5 Mg Tablet PO Not Given DAILY [facility] Protocol Docusate Sodium 100 mg 07/02/20 09:00 07/05/20 08:09 Docusate Sodium 100 Mg Capsule PO Not Given DAILY RANDY Gabapentin 100 mg 07/02/20 21:00 07/04/20 21:21 Gabapentin 100 Mg Capsule PO 100 mg BEDTIME RANDY Administration Piperacillin Sod/Tazobactam 50 mls @ 100 mls/hr 07/02/20 00:00 07/05/20 12:58 Sod 3.375 gm/ Sodium Chloride IV Infused Q6H RANDY Infusion Insulin Human Lispro 0 unit 07/03/20 16:30 07/05/20 12:10 Insulin Lispro 100 Unit/Ml 3 Ml Vial SUBCUT 2 unit QIDACHS [facility] Administration Protocol Methadone HCl 50 mg 07/02/20 17:45 07/05/20 08:03 Methadone Hcl 1 Mg/0.1 Ml Oral.Conc PO 50 mg DAILY RANDY Administration Morphine Sulfate 2 mg 07/03/20 07:45 07/05/20 12:37 Morphine Sulfate 2 Mg/Ml Cartridge IVPUSH 2 mg Q4H PRN Administration Pain, Severe (Pain Scale 7-10) Oxycodone HCl 5 mg 07/03/20 07:46 07/04/20 18:15 Oxycodone Hcl Immed Release 5 Mg Tablet PO 5 mg Q6H PRN Administration Pain, Moderate (Pain Scale 4-6 Pharmacy Consult 1 each 07/01/20 14:32 Consult Rx Perform Med Rec MISCELLANE ONCE PRN Consult order Pharmacy Consult 1 each 07/02/20 00:28 Consult Rx Vancomycin Dosing MISCELLANE DAILY PRN Consult order Quetiapine Fumarate 25 mg 07/03/20 21:00 07/04/20 21:21 Quetiapine Fumarate 25 Mg Tablet PO 25 mg BEDTIME RANDY Administration Senna 8.6 mg 07/02/20 21:00 07/04/20 21:26 Sennosides 8.6 Mg Tablet PO Not Given BEDTIME RANDY Sodium Chloride 3 ml 07/02/20 00:00 07/05/20 08:02 0.9 % Sodium Chloride Flush 3 Ml Syringe IVFLUSH 3 ml QSHIFT RANDY Administration Trazodone HCl 100 - 200 mg 07/01/20 23:47 Trazodone Hcl 100 Mg Tablet PO BEDTIME PRN Insomnia Labs CBC & Chem 7: 07/05/20 09:08 07/05/20 09:08 Labs: Laboratory Results - last 24 hr 07/02/20 07/04/20 07/04/20 12:41 16:41 20:32 WBC RBC Hgb Hct MCV MCH MCHC RDW Plt Count MPV Immature Gran % (Auto) Neut % (Auto) Lymph % (Auto) Fleming % (Auto) Eos % (Auto) Baso % (Auto) Lymph # (Auto) Fleming # (Auto) Eos # (Auto) Baso # (Auto) Abs Immat Gran (auto) Absolute Neuts (auto) Absolute Nucleated RBC Nucleated RBC % (auto) ESR Sodium Potassium Chloride Carbon Dioxide Anion Gap BUN Creatinine Estim Creat Clear Calc Estimated GFR POC Glucose 177 H 173 H Random Glucose Calcium Iron TIBC % Saturation Unsat Iron Binding Ferritin C-Reactive Protein Hep Bs Antigen Negative Hep Bs Antibody REACTIVE Hep B Core Total Ab Reactive Hepatitis C Ab (EIA) Reactive H 07/05/20 07/05/20 07/05/20 07:50 09:08 09:08 WBC 9.9 RBC 2.92 L Hgb 8.6 L Hct 26.4 L MCV 90.4 MCH 29.5 MCHC 32.6 RDW 13.4 Plt Count 226 MPV 9.8 Immature Gran % (Auto) 0.5 H Neut % (Auto) 81.4 H Lymph % (Auto) 12.3 L Fleming % (Auto) 4.0 Eos % (Auto) 1.5 Baso % (Auto) 0.3 Lymph # (Auto) 1.2 Fleming # (Auto) 0.4 Eos # (Auto) 0.2 Baso # (Auto) 0.0 Abs Immat Gran (auto) 0.05 H Absolute Neuts (auto) 8.0 Absolute Nucleated RBC 0.000 Nucleated RBC % (auto) 0.0 ESR Sodium 141 Potassium 3.8 Chloride 108 Carbon Dioxide 26 Anion Gap 11 L BUN 15 Creatinine 1.33 Estim Creat Clear Calc 43.6 Estimated GFR 42 POC Glucose 183 H Random Glucose 165 H Calcium 7.9 L Iron 33 TIBC 145 L % Saturation 23 Unsat Iron Binding 112 Ferritin 289 H C-Reactive Protein 10.30 H Hep Bs Antigen Hep Bs Antibody Hep B Core Total Ab Hepatitis C Ab (EIA) 07/05/20 07/05/20 09:08 11:55 WBC RBC Hgb Hct MCV MCH MCHC RDW Plt Count MPV Immature Gran % (Auto) Neut % (Auto) Lymph % (Auto) Fleming % (Auto) Eos % (Auto) Baso % (Auto) Lymph # (Auto) Fleming # (Auto) Eos # (Auto) Baso # (Auto) Abs Immat Gran (auto) Absolute Neuts (auto) Absolute Nucleated RBC Nucleated RBC % (auto) ESR 119 H Sodium Potassium Chloride Carbon Dioxide Anion Gap BUN Creatinine Estim Creat Clear Calc Estimated GFR POC Glucose 188 H Random Glucose Calcium Iron TIBC % Saturation Unsat Iron Binding Ferritin C-Reactive Protein Hep Bs Antigen Hep Bs Antibody Hep B Core Total Ab Hepatitis C Ab (EIA) Microbiology Microbiology Results: Microbiology 07/01/20 15:56 Blood - Venous Blood Culture - Preliminary No growth after 48 hours. 07/01/20 15:46 Blood - Venous Blood Culture - Preliminary No growth after 48 hours. Assessment and Plan (1) WARNER (acute kidney injury): Status: Acute (2) Proteinuria: Status: Acute (3) Osteomyelitis: Status: Acute (4) Anemia: Status: Acute (5) CKD (chronic kidney disease) stage 3, GFR 30-59 ml/min: Status: Acute (6) Foot osteomyelitis, left: Status: Acute (7) Acute kidney injury superimposed on CKD: Status: Acute (8) HTN (hypertension): Status: Inactive Assessment and Plan: hospital d#5 50yo F with DM2, CKD3 [baseline SCr 1.5], prior L 4th toe amputation and R TMTA admitted with ulcerated L toe infection with osteomyelitis # L great toe osteomyelitis/DM foot infection - on vanco + pip/pa d#5 + awaiting ID + Vacsular Surgery consultations; will likely require amputation # HTN - increase amlodipine dose # WARNER/CKD3 - likely was prerenal + infection-associated ATN/GN; SCr now at baseline with likely underlying DM nephropathy # anemia of CKD - Hb responded to transfusion 2u pRBCs; outpt epo # DM2 - lispro, check A1c # opioid use disorder - continue methadone # HCV Ab+ - check viral load # VTE ppx - UFH
[2020-07-05 14:57] LABS: Anti Nuclear Antibody Screen NEGATIVE (NEGATIVE)
[2020-07-05 15:38] LABS: Estimated Average Glucose 163 mg/dL; Hemoglobin A1c % 7.3 %
[2020-07-05 16:00] VITALS: BP 189/93; PULSE 90; RESP 18; TEMP 36.5; O2SAT 98
[2020-07-05 16:43] LABS: Glucose, Whole Blood 161 mg/dL (60-115)
[2020-07-05] MEDS: Heparin Sodium,Porcine 5,000 UNIT/ML VIAL 5000 UNIT SUBCUT (16:54)
--- NOTE | 2020-07-05 17:30 | PM.CNGS ---
History of Present Illness Consult details Consult date: 07/05/20 Reason for consult: wound care Narrative: Very complex 50-year-old female presents to the hospital for nonhealing foot ulcer. This has been going on for some time on the left great toe. Of note she has been seeing the [facility] regarding this. It had progressively gotten worse and she presented to the hospital over the weekend. She now presents to us for vascular evaluation. Of note she has had a prior right transmetatarsal amputation which was done at [facility] as well. She is concerned about her left great toe. Review of Systems Review of Systems: Yes all other systems are reviewed and are negative Constitutional: Constitutional: Reports no additional constitutional complaints ENT: Reports Normal hearing present Cardiovascular: Cardiovascular: Denies chest pain, Denies chest pain at rest, Denies chest pain with activity and Denies pedal edema Respiratory: Respiratory: Denies cough Gastrointestinal: Gastrointestinal: Denies abdominal pain Musculoskeletal: Musculoskeletal: Denies abnormal gait, Denies muscle cramps and Denies radiating pain into limb Integumentary/Breasts: Skin/Breast: Denies skin ulcer and Denies wounds Neurologic: Reports Normal hearing present and Denies abnormal gait Psychiatric: Psychiatric: Reports no additional psychiatric complaints [facility] Past Medical History Medical History (Updated 07/05/20 @ 14:44 by Corey Denton MD) Anemia Asthma CKD (chronic kidney disease) Diabetes HTN (hypertension) Osteomyelitis Functional capacity: independent ambulation Family History Family History Father No problems noted. Mother No problems noted. Surgical History Surgical History History of ankle surgery Social History Social History Household Members: Spouse Housing: Apartment Do you presently have visiting nurse or other home services: Yes Alcohol intake: never Smoking Status: Current every day smoker Tobacco Type: Cigarette Cigarettes Per Day: 5 Smoked in Last 30 Days: Yes Patient Interested in Nicotine Replacement: No Patient Given Instructions on How to Stop Smoking: No Second Hand Smoke Exposure: Yes Use of substances other than those prescribed or required for medical reasons: Yes Substance Use Type: Heroin Last Used Substance Other:: pt stated on methadone has not used substances in many years Currently Displaying Signs/Symptoms of Drug Intoxication Withdrawal: No Any prior treatment program specific to substance use: Yes (methadone) Have you been hit, kicked, punched, or otherwise hurt by someone within the past year? If so, by whom?: No Do you feel safe in your current relationship?: Yes Is there a partner from a previous relationship who is making you feel unsafe now?: No Are you made to feel afraid or neglected: No Advance Directives: Yes Advance Directives Information Provided: Yes Advance Directives on File: No Advance Directives Date on File: 07/02/20 Do you have thoughts of harming others: None Do you have a plan to hurt others: No Plan Recently lost weight without trying: Yes service: No Current occupational status: disabled [employer] Allergies Allergy/AdvReac Type Severity Reaction Status Date / Time No Known Allergies Allergy Verified 03/10/20 13:02 [No Known Allergies*] Home Medications Medication Instructions Recorded Confirmed Type alprazolam 1 - 2 mg PO DAILY 07/01/20 07/01/20 History docusate sodium 100 mg PO DAILY 07/01/20 07/01/20 History trazodone 100 - 200 mg PO BEDTIME PRN 07/01/20 07/01/20 History gabapentin 100 mg PO BEDTIME 07/02/20 07/02/20 History methadone 47 mg PO DAILY 07/02/20 07/02/20 History quetiapine 25 mg PO DAILY 07/02/20 07/02/20 History sennosides [senna] 8.6 mg PO BEDTIME 07/02/20 07/02/20 History Physical Exam Vital Signs: Vital Signs: Last Vital Signs Temp 97.7 F 07/05/20 16:00 Pulse 90 07/05/20 16:00 Resp 18 07/05/20 16:00 BP 189/93 H 07/05/20 16:00 Pulse Ox 98 07/05/20 16:00 Body Mass Index 27.1 Const: General: cooperative, healthy appearing and comfortable Orientation/consciousness: oriented to person, oriented to place and oriented to time HENMT: Head: Yes normal to inspection Neck: Neck: Yes normal visual inspection Carotids: no bruits Chest: Chest palpation & inspection: normal inspection of the chest Resp: Effort & Inspection: normal respiratory effort and able to speak in complete sentences Auscultation: clear to auscultation bilaterally, no crackles, no rales, no rhonchi and no wheezes Cardio: Rate: regular rate Rhythm: regular rhythm Heart sounds: S1 normal heart sound present and S2 normal heart sound present Bruits: no carotid bruits Peripheral pulses: Peripheral pulses 2+ throughout GI: Inspection: Yes normal to inspection Skin: Wounds: amputation site (Right trans met healed) and wounds noted (Left great toe edematous frankly necrotic) Hair: normal Neuro: General: oriented to person, oriented to place and oriented to time Cranial nerves: Yes CN's II-XII intact bilaterally and Yes Normal hearing present Cognition (Neuro): normal cognition Motor exam (neuro): 5/5 motor strength present throughout Extrem: Other: venous exam: No significant superficial varicosities or spider telangiectasias, minimal edema General: No clubbing, No cyanosis and No edema Psych: Appearance: grossly normal Mental Status: mental status grossly normal Speech and movement: Normal speech and movement present Results Labs Result diagrams: 07/05/20 09:08 07/05/20 09:08 Labs: Abnormal lab results 07/02/20 07/04/20 07/05/20 Range/Units 12:41 20:32 07:50 RBC (4.20-5.50) X10*6/uL Hgb (12.0-16.0) g/dl Hct (37-47) % Immature Gran % (Auto) (0.0-0.4) % Neut % (Auto) (45-73) % Lymph % (Auto) (20-40) % Abs Immat Gran (auto) (0.00-0.03) X10*3/uL ESR (0-20) MM/HR Anion Gap (12-20) POC Glucose 173 H 183 H (60-115) mg/dL Random Glucose (60-115) mg/dL Calcium (8.4-10.2) mg/dL TIBC (228-428) mcg/dL Ferritin (10-250) ng/mL C-Reactive Protein (< or = 0.50) mg/dL Hepatitis C Ab (EIA) Reactive H (Nonreactive) 07/05/20 07/05/20 07/05/20 Range/Units 09:08 09:08 09:08 RBC 2.92 L (4.20-5.50) X10*6/uL Hgb 8.6 L (12.0-16.0) g/dl Hct 26.4 L (37-47) % Immature Gran % (Auto) 0.5 H (0.0-0.4) % Neut % (Auto) 81.4 H (45-73) % Lymph % (Auto) 12.3 L (20-40) % Abs Immat Gran (auto) 0.05 H (0.00-0.03) X10*3/uL ESR 119 H (0-20) MM/HR Anion Gap 11 L (12-20) POC Glucose (60-115) mg/dL Random Glucose 165 H (60-115) mg/dL Calcium 7.9 L (8.4-10.2) mg/dL TIBC 145 L (228-428) mcg/dL Ferritin 289 H (10-250) ng/mL C-Reactive Protein 10.30 H (< or = 0.50) mg/dL Hepatitis C Ab (EIA) (Nonreactive) 07/05/20 07/05/20 Range/Units 11:55 16:35 RBC (4.20-5.50) X10*6/uL Hgb (12.0-16.0) g/dl Hct (37-47) % Immature Gran % (Auto) (0.0-0.4) % Neut % (Auto) (45-73) % Lymph % (Auto) (20-40) % Abs Immat Gran (auto) (0.00-0.03) X10*3/uL ESR (0-20) MM/HR Anion Gap (12-20) POC Glucose 188 H 161 H (60-115) mg/dL Random Glucose (60-115) mg/dL Calcium (8.4-10.2) mg/dL TIBC (228-428) mcg/dL Ferritin (10-250) ng/mL C-Reactive Protein (< or = 0.50) mg/dL Hepatitis C Ab (EIA) (Nonreactive) Short CBC 07/05/20 Range/Units 09:08 WBC 9.9 (4.8-10.8) X10*3/uL Hgb 8.6 L (12.0-16.0) g/dl Hct 26.4 L (37-47) % Plt Count 226 (160-400) X10*3/uL BMP 07/05/20 09:08 Sodium 141 Potassium 3.8 Chloride 108 Carbon Dioxide 26 BUN 15 Creatinine 1.33 Calcium 7.9 L All other labs normal. Assessment and Plan (1) Foot osteomyelitis, left: Status: Acute In short patient has nonhealing left great toe ulcer. Preliminary results of arterial testing was reviewed and does not appear to have acute vascular issues. Does not appear to have any occlusion although AMINAH was not performed. She is in need left great toe amputation. I had also discussed the case with Orthopedic surgery who is recommending hardware removal and we can do that at the same time. I had a renea discussion with the patient in she is refusing any surgery. In addition I discussed this entire case with her on the phone and they would not like to have any surgery performed at the current time. Would recommend continued antibiotics and would have her follow up with [facility] as they had provided her original operation on the right side. Will discuss with the medical team and follow as needed. Thank you for allowing me to participate in her care.
[2020-07-05 17:33] LABS: Folate 15.7 ng/mL (> or = 4.0)
[2020-07-05 18:13] LABS: Vitamin B12 332 pg/mL (200-900)
[2020-07-05 18:28] LABS: Complement C3 162 mg/dL (83-193)
[2020-07-05 20:00] VITALS: BP 203/95; PULSE 99; RESP 19; TEMP 36.5; O2SAT 96
[2020-07-05] MEDS: Gabapentin 100 MG CAPSULE PO (20:35)
[2020-07-05] MEDS: QUEtiapine Fumarate 25 MG TABLET PO (20:35)
[2020-07-05 21:31] LABS: Glucose, Whole Blood 209 mg/dL (60-115)
[2020-07-05] MEDS: ALPRAZolam 0.5 MG TABLET 1 MG PO (22:54)
[2020-07-05] MEDS: traZODone HCL 100 MG TABLET PO (22:54)
[2020-07-06] VITALS (14 sets, daily range): BP systolic 157–195; BP diastolic 72–97; PULSE 79–92; RESP 16–20; TEMP 36.3–37.2; O2SAT 96–97
[2020-07-06] MEDS: Piperacillin Sodium/Tazobactam 3.375 GM in 0.9 % Sodium Chloride 50 ML IV ×4 (00:15→17:04)
[2020-07-06] MEDS: Heparin Sodium,Porcine 5,000 UNIT/ML VIAL 5000 UNIT SUBCUT ×3 (00:16→17:03)
[2020-07-06] MEDS: hydrALAZINE HCl 25 MG TABLET PO ×3 (00:53→19:12)
[2020-07-06 01:47] LABS: CDIFF Internal ctrl Dots and bkg OK (V); CDiff Toxin Negative (Negative)
[2020-07-06 01:49] LABS: CDIFF Ag Positive (Negative)
--- NOTE | 2020-07-06 04:17 | PC.NURSE ---
P-BP-189/90 P-92 I- NOTIFIED.ORDERED HYDRALAZINE 25MG PO.GIVEN AT 0100 I-BP-170/80 P-79 AT 0400
[2020-07-06 07:44] LABS: Glucose, Whole Blood 114 mg/dL (60-115)
[2020-07-06] MEDS: amLODIPine Besylate 5 MG TABLET 10 MG PO (08:13)
[2020-07-06] MEDS: Docusate Sodium 100 MG CAPSULE PO (08:14)
[2020-07-06] MEDS: 0.9 % Sodium Chloride Flush 3 ML SYRINGE IVFLUSH ×2 (08:14→17:04)
[2020-07-06 08:16] LABS: CDiff Gene PCR NEGATIVE (Negative)
[2020-07-06] MEDS: Morphine Sulfate 2 MG/ML CARTRIDGE IVPUSH ×2 (09:46→17:16)
--- NOTE | 2020-07-06 10:30 | P.PNVS_ITS ---
Subjective Subjective Date of Service: 07/06/20 Patient reports: no new complaints Interval history: Patient follow-up for nonhealing left great toe. I spent an extensive time discussing the case with the patient and last night. Last night did not want any intervention. For follow-up this morning. No significant changes overnight. Physical Exam Vital Signs: Vital Signs: Last Vital Signs Temp 98.2 F 07/06/20 08:00 Pulse 88 07/06/20 09:55 Resp 18 07/06/20 09:46 BP 193/94 H 07/06/20 09:55 Pulse Ox 97 07/06/20 08:00 Body Mass Index 27.1 Const: General: cooperative, healthy appearing and no acute distress Orientation/consciousness: oriented to person, oriented to place and oriented to time HENMT: Head: Yes normal to inspection Neck: Carotids: no bruits Chest: Chest palpation & inspection: normal inspection of the chest Resp: Effort & Inspection: normal respiratory effort and able to speak in complete sentences Auscultation: clear to auscultation bilaterally Cardio: Rate: regular rate Heart sounds: S1 normal heart sound present and S2 normal heart sound present GI: Inspection: Yes normal to inspection Skin: General skin exam: no rashes or lesions noted Wounds: wounds noted (Left great toe) Neuro: General: oriented to person, oriented to place, oriented to time and CN's II-XI intact bilaterally Extrem: General: Yes normal to inspection, Yes full ROM and Yes no clubbing, cyanosis or edema Psych: Appearance: grossly normal and well kempt Speech and movement: Normal speech and movement present Affect: normal affect Progress Note: A&P Assessment and plan (1) Foot osteomyelitis, left: Status: Acute Assessment and Plan: Arterial testing reviewed in only demonstrated mild level of disease. AMINAH was not performed but prior AMINAH was within normal limits. Re-approached topic with patient. This would be a coordinated effort between myself in Orthopedics in regards to removal of hardware and toe amputation. She is currently refusing any intervention. She would like to return to [facility] for further treatment. She has been seen by [facility] in the past. [facility] has also performed her right leg transmetatarsal amputation which appears to be well healed as well. Would recommend antibiotics and follow-up with [facility]. We will follow on an as-needed basis. Thank you for allowing us to assist in her care. Fall Risk Details Current Medications: Current Medications Generic Name Dose Route Start Last Admin Trade Name Eva PRN Reason Stop Dose Admin Alprazolam 1 mg 07/02/20 09:00 07/05/20 22:54 Alprazolam 0.5 Mg Tablet PO 1 mg DAILY PRN Administration Anxiety Amlodipine Besylate 10 mg 07/05/20 09:00 07/06/20 08:13 Amlodipine Besylate 5 Mg Tablet PO 10 mg DAILY RANDY Administration Protocol Docusate Sodium 100 mg 07/02/20 09:00 07/06/20 08:14 Docusate Sodium 100 Mg Capsule PO 100 mg DAILY RANDY Administration Gabapentin 100 mg 07/02/20 21:00 07/05/20 20:35 Gabapentin 100 Mg Capsule PO 100 mg BEDTIME RANDY Administration Heparin Sodium (Porcine) 5,000 unit 07/05/20 16:00 07/06/20 08:14 Heparin Sodium,Porcine 5,000 Unit/Ml Vial SUBCUT 5,000 unit Q8H [facility] Administration Hydralazine HCl 25 mg 07/06/20 00:14 07/06/20 09:55 Hydralazine Hcl 25 Mg Tablet PO 25 mg TID PRN Administration BP>180/90 Protocol Piperacillin Sod/Tazobactam 50 mls @ 100 mls/hr 07/02/20 00:00 07/06/20 06:20 Sod 3.375 gm/ Sodium Chloride IV Infused Q6H [facility] Infusion Insulin Human Lispro 0 unit 07/03/20 16:30 07/06/20 07:56 Insulin Lispro 100 Unit/Ml 3 Ml Vial SUBCUT Not Given QIDACHS [facility] Protocol Methadone HCl 50 mg 07/02/20 17:45 07/06/20 08:13 Methadone Hcl 1 Mg/0.1 Ml Oral.Conc PO 50 mg DAILY RANDY Administration Morphine Sulfate 2 mg 07/03/20 07:45 07/06/20 09:46 Morphine Sulfate 2 Mg/Ml Cartridge IVPUSH 2 mg Q4H PRN Administration Pain, Severe (Pain Scale 7-10) Oxycodone HCl 5 mg 07/03/20 07:46 07/04/20 18:15 Oxycodone Hcl Immed Release 5 Mg Tablet PO 5 mg Q6H PRN Administration Pain, Moderate (Pain Scale 4-6 Pharmacy Consult 1 each 07/01/20 14:32 Consult Rx Perform Med Rec MISCELLANE ONCE PRN Consult order Pharmacy Consult 1 each 07/02/20 00:28 Consult Rx Vancomycin Dosing MISCELLANE DAILY PRN Consult order Quetiapine Fumarate 25 mg 07/03/20 21:00 07/05/20 20:35 Quetiapine Fumarate 25 Mg Tablet PO 25 mg BEDTIME RANDY Administration Senna 8.6 mg 07/02/20 21:00 07/05/20 20:35 Sennosides 8.6 Mg Tablet PO Not Given BEDTIME RANDY Sodium Chloride 3 ml 07/02/20 00:00 07/06/20 08:14 0.9 % Sodium Chloride Flush 3 Ml Syringe IVFLUSH 3 ml QSHIFT RANDY Administration Trazodone HCl 100 - 200 mg 07/01/20 23:47 07/05/20 22:54 Trazodone Hcl 100 Mg Tablet PO 200 mg BEDTIME PRN Administration Insomnia Time Spent With Patient Time: Total time spent is greater than 50% in coordination of care (as documented) at patient's floor/unit and/or counseling patient: Time with patient: Greater than 35 minutes
--- NOTE | 2020-07-06 10:46 | PM.PNNEP ---
Subjective Subjective Date of Service: 07/06/20 Interval history: Events noted; All recent data reviewed; Anxious Physical Exam Vital Signs: Vital Signs: Last Vital Signs Temp 98.2 F 07/06/20 08:00 Pulse 88 07/06/20 09:55 Resp 18 07/06/20 09:46 BP 193/94 H 07/06/20 09:55 Pulse Ox 97 07/06/20 08:00 Body Mass Index 27.1 Const: General: anxious Neck: Neck: Yes supple Resp: Auscultation: diminished lung sounds Cardio: Rate: regular rate GI: Palpation (GI): Soft to palpation Neuro: General: moves all extremities Objective Data Labs CBC & Chem 7: 07/05/20 09:08 07/05/20 09:08 Labs: Laboratory Results - last 24 hr 07/02/20 07/02/20 07/05/20 12:41 12:41 09:08 POC Glucose Estimat Average Glucose Hemoglobin A1c % Vitamin B12 332 Folate 15.7 MARIE Screen NEGATIVE MARIE Titer TNP MARIE Titer 2 TNP MARIE Titer 3 TNP MARIE Pattern TNP MARIE Pattern 2 TNP MARIE Pattern 3 TNP Complement C3 162 Complement C4 43 C. difficile Tox B Gene C. difficile Toxin A&B C. difficile Antigen C. difficile Interpret 07/05/20 07/05/20 07/05/20 09:08 11:55 16:35 POC Glucose 188 H 161 H Estimat Average Glucose 163 Hemoglobin A1c % 7.3 Vitamin B12 Folate MARIE Screen MARIE Titer MARIE Titer 2 MARIE Titer 3 MARIE Pattern MARIE Pattern 2 MARIE Pattern 3 Complement C3 Complement C4 C. difficile Tox B Gene C. difficile Toxin A&B C. difficile Antigen C. difficile Interpret 07/05/20 07/06/20 07/06/20 21:06 00:42 07:33 POC Glucose 209 H 114 Estimat Average Glucose Hemoglobin A1c % Vitamin B12 Folate MARIE Screen MARIE Titer MARIE Titer 2 MARIE Titer 3 MARIE Pattern MARIE Pattern 2 MARIE Pattern 3 Complement C3 Complement C4 C. difficile Tox B Gene NEGATIVE C. difficile Toxin A&B Negative C. difficile Antigen Positive A C. difficile Interpret PCR to be performed Microbiology Microbiology Results: Microbiology 07/01/20 15:56 Blood - Venous Blood Culture - Preliminary No growth after 48 hours. 07/01/20 15:46 Blood - Venous Blood Culture - Preliminary No growth after 48 hours. Assessment & Plan Assessment and plan (1) Acute kidney injury superimposed on CKD: Problem details: (1) WARNER (acute kidney injury) (2) Proteinuria (3) Osteomyelitis (4) Anemia (5) CKD (chronic kidney disease) stage 3, GFR 30-59 ml/min Renal function close to baseline WARNER due to compromised kidney perfusion and tubular stress Cannot exclude alonso infectious nephritis proteinuria ~ 1.7 gram negative hepatitis profile serum immunofixation pending Baseline serum creatinine ~ 1.5 mg/dl C/W current supportive care. Shall follow up Status: Acute Time Spent With Patient Time: Total time spent is greater than 50% in coordination of care (as documented) at patient's floor/unit and/or counseling patient:
[2020-07-06 11:35] LABS: Glucose, Whole Blood 157 mg/dL (60-115)
[2020-07-06] MEDS: Insulin Lispro 100 UNIT/ML 3 ML VIAL SUBCUT ×2 (11:56→17:03)
[2020-07-06 12:27] LABS: Hepatitis B Core Antibody IgM NON-REACTIVE (NON-REACTIVE)
--- NOTE | 2020-07-06 13:52 | MHC.CM.PN ---
electronic medical record reviewed alng with case discussed on ultiple disciplainry rounds , hospitalist informed us that patient does not want to have surgery
--- NOTE | 2020-07-06 13:59 | MHC.CM.PN ---
nurse director of primary care note electronic medical record reviewed along with case discussed on multiple disciplinary rounds per vascular surgeons note ( patient with left foot osteomyelitis at this time patient is refusing amputation or surgical intervention, she would like to return to [facility]. recomending post discharge follow up at [facility]. per hospitalist patient will need pic line and iv antibiotics , need for id fllow up regarding finalization of iv abx, home infusion compamny and vna discharge plan 1. vna 2, home infusion company pic line iv abx [facility] pcp jamari witt transportation family
[2020-07-06 14:22] LABS: IgA 351 mg/dL (47-310); IgG 1949 mg/dL (600-1640); IgM 289 mg/dL (50-300)
--- NOTE | 2020-07-06 15:50 | HO.PM.IMPN ---
Subjective Subjective Date of Service: 07/06/20 Interval History: refuses amputation + hardware removal despite discussion of risks of suboptimally treated osteomyelitis no fever/chills anxious diarrhea- C diff negative Physical Exam Vital Signs: Vital Signs: Last Vital Signs Temp 98.2 F 07/06/20 08:00 Pulse 88 07/06/20 09:55 Resp 16 07/06/20 12:00 BP 174/78 H 07/06/20 13:03 Pulse Ox 97 07/06/20 08:00 Body Mass Index 27.1 Gen: in no acute distress HEENT: sclera anicteric, moist mucus membranes Neck: supple Lungs: clear to auscultation bilaterally Heart: regular rate and rhythm, no murmurs Abd: soft, non-tender, non-distended Ext: extensive ulceration and drainage of L great toe; prior L 4th toe amputation; prior R TMTA Skin: warm/well-perfused Neuro: alert and oriented x3, no focal findings Psych: anxious Objective Data Current Medications Generic Name Dose Route Start Last Admin Trade Name Luizq PRN Reason Stop Dose Admin Alprazolam 1 mg 07/02/20 09:00 07/05/20 22:54 Alprazolam 0.5 Mg Tablet PO 1 mg DAILY PRN Administration Anxiety Amlodipine Besylate 10 mg 07/05/20 09:00 07/06/20 08:13 Amlodipine Besylate 5 Mg Tablet PO 10 mg DAILY RANDY Administration Protocol Docusate Sodium 100 mg 07/02/20 09:00 07/06/20 08:14 Docusate Sodium 100 Mg Capsule PO 100 mg DAILY RANDY Administration Gabapentin 100 mg 07/02/20 21:00 07/05/20 20:35 Gabapentin 100 Mg Capsule PO 100 mg BEDTIME RANDY Administration Heparin Sodium (Porcine) 5,000 unit 07/05/20 16:00 07/06/20 08:14 Heparin Sodium,Porcine 5,000 Unit/Ml Vial SUBCUT 5,000 unit Q8H RANDY Administration Hydralazine HCl 25 mg 07/06/20 00:14 07/06/20 09:55 Hydralazine Hcl 25 Mg Tablet PO 25 mg TID PRN Administration BP>180/90 Protocol Piperacillin Sod/Tazobactam 50 mls @ 100 mls/hr 07/02/20 00:00 07/06/20 13:03 Sod 3.375 gm/ Sodium Chloride IV Infused Q6H [facility] Infusion Insulin Human Lispro 0 unit 07/03/20 16:30 07/06/20 11:56 Insulin Lispro 100 Unit/Ml 3 Ml Vial SUBCUT 2 unit QIDACHS [facility] Administration Protocol Methadone HCl 50 mg 07/02/20 17:45 07/06/20 08:13 Methadone Hcl 1 Mg/0.1 Ml Oral.Conc PO 50 mg DAILY RANDY Administration Morphine Sulfate 2 mg 07/03/20 07:45 07/06/20 09:46 Morphine Sulfate 2 Mg/Ml Cartridge IVPUSH 2 mg Q4H PRN Administration Pain, Severe (Pain Scale 7-10) Oxycodone HCl 5 mg 07/03/20 07:46 07/04/20 18:15 Oxycodone Hcl Immed Release 5 Mg Tablet PO 5 mg Q6H PRN Administration Pain, Moderate (Pain Scale 4-6 Pharmacy Consult 1 each 07/01/20 14:32 Consult Rx Perform Med Rec MISCELLANE ONCE PRN Consult order Pharmacy Consult 1 each 07/02/20 00:28 Consult Rx Vancomycin Dosing MISCELLANE DAILY PRN Consult order Quetiapine Fumarate 25 mg 07/03/20 21:00 07/05/20 20:35 Quetiapine Fumarate 25 Mg Tablet PO 25 mg BEDTIME [facility] Administration Senna 8.6 mg 07/02/20 21:00 07/05/20 20:35 Sennosides 8.6 Mg Tablet PO Not Given BEDTIME [facility] Sodium Chloride 3 ml 07/02/20 00:00 07/06/20 08:14 0.9 % Sodium Chloride Flush 3 Ml Syringe IVFLUSH 3 ml QSHIFT [facility] Administration Trazodone HCl 100 - 200 mg 07/01/20 23:47 07/05/20 22:54 Trazodone Hcl 100 Mg Tablet PO 200 mg BEDTIME PRN Administration Insomnia Labs CBC & Chem 7: 07/05/20 09:08 07/05/20 09:08 Labs: Laboratory Results - last 24 hr 07/02/20 07/02/20 07/02/20 12:41 12:41 12:41 POC Glucose Vitamin B12 Folate IgG Total 1949 H IgA Total 351 H IgM 289 MEDHAT Interpretation SEE NOTE MARIE Titer TNP MARIE Titer 2 TNP MARIE Titer 3 TNP MARIE Pattern TNP MARIE Pattern 2 TNP MARIE Pattern 3 TNP Complement C3 162 Complement C4 43 C. difficile Tox B Gene C. difficile Toxin A&B C. difficile Antigen C. difficile Interpret Hep B Core IgM Ab NON-REACTIVE 07/05/20 07/05/20 07/05/20 09:08 16:35 21:06 POC Glucose 161 H 209 H Vitamin B12 332 Folate 15.7 IgG Total IgA Total IgM MEDHAT Interpretation MARIE Titer MARIE Titer 2 MARIE Titer 3 MARIE Pattern MARIE Pattern 2 MARIE Pattern 3 Complement C3 Complement C4 C. difficile Tox B Gene C. difficile Toxin A&B C. difficile Antigen C. difficile Interpret Hep B Core IgM Ab 07/06/20 07/06/20 07/06/20 00:42 07:33 11:28 POC Glucose 114 157 H Vitamin B12 Folate IgG Total IgA Total IgM MEDHAT Interpretation MARIE Titer MARIE Titer 2 MARIE Titer 3 MARIE Pattern MARIE Pattern 2 MARIE Pattern 3 Complement C3 Complement C4 C. difficile Tox B Gene NEGATIVE C. difficile Toxin A&B Negative C. difficile Antigen Positive A C. difficile Interpret PCR to be performed Hep B Core IgM Ab Microbiology Microbiology Results: Microbiology 07/01/20 15:56 Blood - Venous Blood Culture - Preliminary No growth after 48 hours. 07/01/20 15:46 Blood - Venous Blood Culture - Preliminary No growth after 48 hours. Assessment and Plan (1) WARNER (acute kidney injury): Status: Acute (2) Proteinuria: Status: Acute (3) Osteomyelitis: Status: Acute (4) Anemia: Status: Acute (5) CKD (chronic kidney disease) stage 3, GFR 30-59 ml/min: Status: Acute (6) Foot osteomyelitis, left: Status: Acute (7) Acute kidney injury superimposed on CKD: Status: Acute (8) HTN (hypertension): Status: Inactive Assessment and Plan: hospital d#6 50yo F with DM2, CKD3 [baseline SCr 1.5], prior L 4th toe amputation and R TMTA admitted with ulcerated L toe infection with osteomyelitis # L great toe osteomyelitis/DM foot infection - on vanco + pip/pa d#6 - Vascular Surgery + Orthopedics recommend toe amputation with removal of ankle hardware but she refuses despite discussion of risks - will discuss ABX regimen with ID # HTN - increased amlodipine dose # WARNER/CKD3 - likely was prerenal + infection-associated ATN/GN; SCr now at baseline with likely underlying DM nephropathy # anemia of CKD - Hb responded to transfusion 2u pRBCs; outpt epo # DM2, A1c 7.3 - correction-dose lispro # opioid use disorder - continue methadone # HCV Ab+ - pt states did not complete interferon tx in past. viral load pending; if positive, should get outpt tx with DAA # VTE ppx - UFH
--- NOTE | 2020-07-06 16:29 | W.PM.IDCN ---
History of Present Illness Data of Consult Service Date: 07/05/20 Requesting physician: Corey Denton Primary Care Provider: Tamanna MCCALL Reason for consult: left foot erythema She presents to hospital with complaints of left great toe erythema and yellow serous fluid filled blisters on toe and dorsum of foot for a week She has no fever or chills She has notes I reviewed from [facility] and last note was 04/30 Wound Care She had debridement done on that date She has not been on antibiotics lately She has seen Dr Palumbo and declined hardware removal and has not had diabetic shoes > There has been concern over infected hardware and bone infection last 3 months Review of Systems Review of Systems: Yes all other systems are reviewed and are negative PMFSH Past Medical History Medical History (Updated 07/06/20 @ 16:39 by Martha Jauregui MD) Anemia Asthma CKD (chronic kidney disease) Diabetes Hepatitis C virus infection cured after antiviral drug therapy HTN (hypertension) Osteomyelitis Functional capacity: independent ambulation Family History Family History Father No problems noted. Mother No problems noted. Surgical History Surgical History History of ankle surgery Social History Social History Household Members: Spouse Housing: Apartment Do you presently have visiting nurse or other home services: Yes Alcohol intake: never Smoking Status: Current every day smoker Tobacco Type: Cigarette Cigarettes Per Day: 5 Smoked in Last 30 Days: Yes Patient Interested in Nicotine Replacement: No Patient Given Instructions on How to Stop Smoking: No Second Hand Smoke Exposure: Yes Use of substances other than those prescribed or required for medical reasons: Yes Substance Use Type: Heroin Last Used Substance Other:: pt stated on methadone has not used substances in many years Currently Displaying Signs/Symptoms of Drug Intoxication Withdrawal: No Any prior treatment program specific to substance use: Yes (methadone) Have you been hit, kicked, punched, or otherwise hurt by someone within the past year? If so, by whom?: No Do you feel safe in your current relationship?: Yes Is there a partner from a previous relationship who is making you feel unsafe now?: No Are you made to feel afraid or neglected: No Advance Directives: Yes Advance Directives Information Provided: Yes Advance Directives on File: No Advance Directives Date on File: 07/02/20 Do you have thoughts of harming others: None Do you have a plan to hurt others: No Plan Recently lost weight without trying: Yes service: No Current occupational status: disabled Meds Allergies Allergy/AdvReac Type Severity Reaction Status Date / Time No Known Allergies Allergy Verified 03/10/20 13:02 [No Known Allergies*] Home Medications Medication Instructions Recorded Confirmed Type alprazolam 1 - 2 mg PO DAILY 07/01/20 07/01/20 History docusate sodium 100 mg PO DAILY 07/01/20 07/01/20 History trazodone 100 - 200 mg PO BEDTIME PRN 07/01/20 07/01/20 History gabapentin 100 mg PO BEDTIME 07/02/20 07/02/20 History methadone 47 mg PO DAILY 07/02/20 07/02/20 History quetiapine 25 mg PO DAILY 07/02/20 07/02/20 History sennosides [senna] 8.6 mg PO BEDTIME 07/02/20 07/02/20 History Physical Exam Vital Signs: Vital Signs: Last Vital Signs Temp 98.2 F 07/06/20 08:00 Pulse 88 07/06/20 09:55 Resp 16 07/06/20 12:00 BP 174/78 H 07/06/20 13:03 Pulse Ox 97 07/06/20 08:00 Body Mass Index 27.1 Const: General: cooperative HENMT: Head: Yes normal to inspection Eyes: General: appearance normal, both eyes and all related structures Resp: Effort & Inspection: normal respiratory effort Cardio: Rate: regular rate Rhythm: regular rhythm GI: Palpation (GI): Soft to palpation and nontender Extrem: Other: right TMA,stable plantar area left great toe fluctuant,serous Assessment and Plan (1) Osteomyelitis: Problem details: Chronic,not curable on toe Related to hardware Status: Acute Hardware removal may help resolution ,but osteomyelitis will likely remain chronic (2) Cellulitis: Qualifiers: Laterality: left Site of cellulitis: extremity Site of cellulitis of extremity: lower extremity Qualified Code(s): L03.116 - Cellulitis of left lower limb Problem details: Resolving cellulitis on IV antibiotics Status: Acute Treat cellulitis Linezolid would be ideal but patient has too many potential drug interactions with Methadone and SSRI Treat with po Levaquin and Flagyl 3-4 weeks Would not give skilled nursing IV antibiotics without hardware removal as risk with chronic kidney disease particularly outweighs benefit (3) CKD (chronic kidney disease) stage 3, GFR 30-59 ml/min: Status: Acute Results Labs CBC & Chem 7: 07/05/20 09:08 07/05/20 09:08 Microbiology Microbiology Results: Microbiology 07/01/20 15:56 Blood - Venous Blood Culture - Preliminary No growth after 48 hours. 07/01/20 15:46 Blood - Venous Blood Culture - Preliminary No growth after 48 hours.
[2020-07-06 16:51] LABS: Glucose, Whole Blood 232 mg/dL (60-115)
--- NOTE | 2020-07-06 19:06 | PC.NURSE ---
1353 Manual BP checked. 174/78. aware. No new orders. 1802 Reassessed BP manually. 180/72. made aware. Given OK to give prn Hydralazine. Oncoming nurse made aware.
[2020-07-06 20:29] LABS: Glucose, Whole Blood 124 mg/dL (60-115)
[2020-07-06] MEDS: QUEtiapine Fumarate 50 MG TABLET 150 MG PO (20:51)
[2020-07-06] MEDS: Gabapentin 100 MG CAPSULE PO (20:51)
[2020-07-06] MEDS: ALPRAZolam 0.5 MG TABLET 1 MG PO (20:58)
--- NOTE | 2020-07-06 22:55 | PC.NURSE ---
2145- Pt BP 184/78 manually, pulse 89. Dr. Gooden made aware. No new orders.
[2020-07-07] VITALS (7 sets, daily range): BP systolic 164–176; BP diastolic 68–84; PULSE 80–85; RESP 15–20; TEMP 36.1–36.7; O2SAT 95–99
--- NOTE | 2020-07-07 | ECG_ITS ---
Test Reason : QTC CHECK Blood Pressure : / mmHG Vent. Rate : 089 BPM Atrial Rate : 089 BPM P-R Int : 162 ms QRS Dur : 074 ms QT Int : 364 ms P-R-T Axes : 044 050 053 degrees QTc Int : 442 ms Normal sinus rhythm Nonspecific T wave abnormality Abnormal ECG When compared with ECG of 01-JUL-2020 15:25, Nonspecific T wave abnormality now evident in Anterolateral leads Referred By: Corey Denton Electronically Signed By:DONALD CHUN MD
[2020-07-07] MEDS: Piperacillin Sodium/Tazobactam 3.375 GM in 0.9 % Sodium Chloride 50 ML IV ×2 (00:12→06:11)
[2020-07-07] MEDS: Heparin Sodium,Porcine 5,000 UNIT/ML VIAL 5000 UNIT SUBCUT ×2 (00:13→16:51)
[2020-07-07] MEDS: 0.9 % Sodium Chloride Flush 3 ML SYRINGE IVFLUSH ×3 (00:13→16:50)
[2020-07-07 06:50] LABS: MANUAL DIFF FLAG NO
[2020-07-07 07:06] LABS: Basophils Percent Auto 0.4 % (0-2); Eosinophils Absolute Auto 0.2 X10*3/uL (0.0-0.4); Eosinophils Percent Auto 2.4 % (0-4); Hemoglobin 8.3 g/dl (12.0-16.0); Imm Gran Abs Auto 0.04 X10*3/uL (0.00-0.03); Imm Gran Pct Auto 0.5 % (0.0-0.4); Lymphocytes Absolute Auto 1.6 X10*3/uL (1.2-4.9); Lymphocytes Percent Auto 20.4 % (20-40); Mean Corpuscular HGB Conc 33.2 g/dl (31.0-35.0); Mean Corpuscular Hemoglobin 29.2 pg (27.0-33.0); Mean Platelet Volume 10.6 fL (9.4-12.3); Monocytes Absolute Auto 0.3 X10*3/uL (0.1-1.2); Neutrophils Absolute Auto 5.8 X10*3/uL (2.0-8.3); Neutrophils Percent Auto 72.3 % (45-73); Platelet Count 225 X10*3/uL (160-400); Red Blood Count 2.84 X10*6/uL (4.20-5.50); Red Cell Distribution Width 13.2 % (11.0-16.0)
[2020-07-07 07:20] LABS: Anion Gap 14 (12-20); Blood Urea Nitrogen 15 mg/dL (9-16); Calcium 7.5 mg/dL (8.4-10.2); Carbon Dioxide 24 mmol/L (22-29); Chloride 108 mmol/L (96-108); Creatinine Clr Calc Pharmacy 38.9; Estimated Glomerular Filt Rate 37; Glucose Random 153 mg/dL (60-115); Potassium 3.7 mmol/L (3.3-5.1); Sodium 142 mmol/L (135-145)
[2020-07-07] MEDS: Insulin Lispro 100 UNIT/ML 3 ML VIAL SUBCUT ×2 (07:52→16:59)
[2020-07-07 08:29] LABS: Glucose, Whole Blood 158 mg/dL (60-115)
[2020-07-07] MEDS: Docusate Sodium 100 MG CAPSULE PO (09:33)
[2020-07-07] MEDS: levoFLOXacin 750 MG TABLET PO (09:33)
[2020-07-07] MEDS: QUEtiapine Fumarate 50 MG TABLET 150 MG PO ×2 (09:33→20:11)
[2020-07-07] MEDS: amLODIPine Besylate 5 MG TABLET 10 MG PO (09:33)
[2020-07-07] MEDS: metroNIDAZOLE 500 MG TABLET PO ×2 (09:33→16:50)
--- NOTE | 2020-07-07 12:05 | P.PNNP_ITS ---
Subjective Subjective Date of Service: 07/07/20 Interval history: Refuses amputation + hardware removal despite discussion of risks of suboptimally treated osteomyelitis Physical Exam Vital Signs: Vital Signs: Last Vital Signs Temp 98.0 F 07/07/20 07:44 Pulse 83 07/07/20 07:44 Resp 17 07/07/20 07:44 BP 170/68 H 07/07/20 07:44 Pulse Ox 96 07/07/20 07:44 Body Mass Index 27.1 Const: General: no acute distress Orientation/consciousness: patient oriented x3 Neck: Neck: Yes supple Resp: Auscultation: diminished lung sounds Cardio: Rate: regular rate GI: Palpation (GI): Soft to palpation Neuro: General: patient oriented x3 Objective Data Labs CBC & Chem 7: 07/07/20 06:25 07/07/20 06:25 Labs: Laboratory Results - last 24 hr 07/02/20 07/02/20 07/06/20 12:41 12:41 16:42 WBC RBC Hgb Hct MCV MCH MCHC RDW Plt Count MPV Immature Gran % (Auto) Neut % (Auto) Lymph % (Auto) [place] % (Auto) Eos % (Auto) Baso % (Auto) Lymph # (Auto) [place] # (Auto) Eos # (Auto) Baso # (Auto) Abs Immat Gran (auto) Absolute Neuts (auto) Absolute Nucleated RBC Nucleated RBC % (auto) Sodium Potassium Chloride Carbon Dioxide Anion Gap BUN Creatinine Estim Creat Clear Calc Estimated GFR POC Glucose 232 H Random Glucose Calcium IgG Total 1949 H IgA Total 351 H IgM 289 MEDHAT Interpretation SEE NOTE Hep B Core IgM Ab NON-REACTIVE 07/06/20 07/07/20 07/07/20 20:24 06:25 06:25 WBC 8.0 RBC 2.84 L Hgb 8.3 L Hct 25.0 L MCV 88.0 MCH 29.2 MCHC 33.2 RDW 13.2 Plt Count 225 MPV 10.6 Immature Gran % (Auto) 0.5 H Neut % (Auto) 72.3 Lymph % (Auto) 20.4 [place] % (Auto) 4.0 Eos % (Auto) 2.4 Baso % (Auto) 0.4 Lymph # (Auto) 1.6 [place] # (Auto) 0.3 Eos # (Auto) 0.2 Baso # (Auto) 0.0 Abs Immat Gran (auto) 0.04 H Absolute Neuts (auto) 5.8 Absolute Nucleated RBC 0.000 Nucleated RBC % (auto) 0.0 Sodium 142 Potassium 3.7 Chloride 108 Carbon Dioxide 24 Anion Gap 14 BUN 15 Creatinine 1.49 H Estim Creat Clear Calc 38.9 Estimated GFR 37 POC Glucose 124 H Random Glucose 153 H Calcium 7.5 L IgG Total IgA Total IgM MEDHAT Interpretation Hep B Core IgM Ab 07/07/20 07:44 WBC RBC Hgb Hct MCV MCH MCHC RDW Plt Count MPV Immature Gran % (Auto) Neut % (Auto) Lymph % (Auto) [place] % (Auto) Eos % (Auto) Baso % (Auto) Lymph # (Auto) [place] # (Auto) Eos # (Auto) Baso # (Auto) Abs Immat Gran (auto) Absolute Neuts (auto) Absolute Nucleated RBC Nucleated RBC % (auto) Sodium Potassium Chloride Carbon Dioxide Anion Gap BUN Creatinine Estim Creat Clear Calc Estimated GFR POC Glucose 158 H Random Glucose Calcium IgG Total IgA Total IgM MEDHAT Interpretation Hep B Core IgM Ab Microbiology Microbiology Results: Microbiology 07/01/20 15:56 Blood - Venous Blood Culture - Final No growth after 5 days. 07/01/20 15:46 Blood - Venous Blood Culture - Final No growth after 5 days. Assessment & Plan Assessment and plan (1) Acute kidney injury superimposed on CKD: Problem details: (1) WARNER (acute kidney injury) (2) Proteinuria (3) Osteomyelitis (4) Anemia (5) CKD (chronic kidney disease) stage 3, GFR 30-59 ml/min Renal function close to baseline WARNER due to compromised kidney perfusion and tubular stress Cannot exclude alonso infectious nephritis proteinuria ~ 1.7 gram negative hepatitis profile Baseline serum creatinine ~ 1.5 mg/dl C/W current supportive care. Shall follow up in the office when D/Alberto Status: Acute Time Spent With Patient Time: Total time spent is greater than 50% in coordination of care (as documented) at patient's floor/unit and/or counseling patient:
[2020-07-07 12:22] LABS: Glucose, Whole Blood 167 mg/dL (60-115)
--- NOTE | 2020-07-07 13:13 | MHC.CM.NN ---
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 ELECTRONIC MEDICAL RECORD REVIEWED ALONG WITH CASE DISCUSSED ON MULTIPLE DISCIPLINARY ROUNDS , PER HOSPITALIST PATIENT WILL BE GOING HOME WITH ORAL ANTIBIOTICS AND REQUIRES DAILY NURSING VISISITS FOR WOUND CARE DRESSING CHANGES , ALSO FOLLOW UP WITH PCP AND [facility] DISCHARGE PLAN HOME WITH VNA FOR RN-QD WOUND ASSESSEMNT And dresisng changes iniated referrals to [facility] unable to proivde services secondary to daily rn visits , referred to [facility], tyshawn and reena to check for their nursing qd availability pcp jamari witt patient to call for post hospital discharge follow up self resumption of her methadone clinic transportation cancelled snf referras and home iv infusion referral
[2020-07-07] MEDS: Morphine Sulfate 2 MG/ML CARTRIDGE IVPUSH ×2 (13:32→20:11)
[2020-07-07] MEDS: ALPRAZolam 0.5 MG TABLET 1 MG PO (14:15)
--- NOTE | 2020-07-07 14:32 | P.PNIM_ITS ---
Subjective Subjective Date of Service: 07/07/20 Interval History: no fever/chills still refuses surgery, wants to go home wound purulent with drainage Physical Exam Vital Signs: Vital Signs: Last Vital Signs Temp 98.1 F 07/07/20 12:00 Pulse 83 07/07/20 12:00 Resp 15 07/07/20 12:00 BP 176/83 H 07/07/20 12:00 Pulse Ox 97 07/07/20 12:00 Body Mass Index 27.1 Gen: in no acute distress HEENT: sclera anicteric, moist mucus membranes Neck: supple Lungs: clear to auscultation bilaterally Heart: regular rate and rhythm, no murmurs Abd: soft, non-tender, non-distended Ext: extensive ulceration and drainage of L great toe [see photo from 07/06 ID consult note]; prior L 4th toe amputation; prior R TMTA Skin: warm/well-perfused Neuro: alert and oriented x3, no focal findings Psych: anxious Objective Data Current Medications Generic Name Dose Route Start Last Admin Trade Name Eva PRN Reason Stop Dose Admin Alprazolam 1 mg 07/02/20 09:00 07/07/20 14:15 Alprazolam 0.5 Mg Tablet PO 1 mg DAILY PRN Administration Anxiety Amlodipine Besylate 10 mg 07/05/20 09:00 07/07/20 09:33 Amlodipine Besylate 5 Mg Tablet PO 10 mg DAILY RANDY Administration Protocol Docusate Sodium 100 mg 07/02/20 09:00 07/07/20 09:33 Docusate Sodium 100 Mg Capsule PO 100 mg DAILY RANDY Administration Gabapentin 100 mg 07/02/20 21:00 07/06/20 20:51 Gabapentin 100 Mg Capsule PO 100 mg BEDTIME RANDY Administration Heparin Sodium (Porcine) 5,000 unit 07/05/20 16:00 07/07/20 07:53 Heparin Sodium,Porcine 5,000 Unit/Ml Vial SUBCUT Not Given Q8H [facility] Hydralazine HCl 25 mg 07/06/20 00:14 07/06/20 19:12 Hydralazine Hcl 25 Mg Tablet PO 25 mg TID PRN Administration BP>180/90 Protocol Insulin Human Lispro 0 unit 07/03/20 16:30 07/07/20 13:32 Insulin Lispro 100 Unit/Ml 3 Ml Vial SUBCUT Not Given QIDACHS [facility] Protocol Levofloxacin 750 mg 07/07/20 08:00 07/07/20 09:33 Levofloxacin 750 Mg Tablet PO 750 mg Q48H RANDY Administration Methadone HCl 50 mg 07/02/20 17:45 07/07/20 09:34 Methadone Hcl 1 Mg/0.1 Ml Oral.Conc PO 50 mg DAILY RANDY Administration Metronidazole 500 mg 07/07/20 08:00 07/07/20 09:33 Metronidazole 500 Mg Tablet PO 500 mg Q8H RANDY Administration Morphine Sulfate 2 mg 07/03/20 07:45 07/07/20 13:32 Morphine Sulfate 2 Mg/Ml Cartridge IVPUSH 2 mg Q4H PRN Administration Pain, Severe (Pain Scale 7-10) Oxycodone HCl 5 mg 07/03/20 07:46 07/04/20 18:15 Oxycodone Hcl Immed Release 5 Mg Tablet PO 5 mg Q6H PRN Administration Pain, Moderate (Pain Scale 4-6 Pharmacy Consult 1 each 07/01/20 14:32 Consult Rx Perform Med Rec MISCELLANE ONCE PRN Consult order Pharmacy Consult 1 each 07/02/20 00:28 Consult Rx Vancomycin Dosing MISCELLANE DAILY PRN Consult order Quetiapine Fumarate 150 mg 07/06/20 21:00 07/07/20 09:33 Quetiapine Fumarate 50 Mg Tablet PO 150 mg BID RANDY Administration Senna 8.6 mg 07/02/20 21:00 07/06/20 20:58 Sennosides 8.6 Mg Tablet PO Not Given BEDTIME [facility] Sodium Chloride 3 ml 07/02/20 00:00 07/07/20 07:53 0.9 % Sodium Chloride Flush 3 Ml Syringe IVFLUSH 3 ml QSHIFT RANDY Administration Trazodone HCl 100 - 200 mg 07/01/20 23:47 07/05/20 22:54 Trazodone Hcl 100 Mg Tablet PO 200 mg BEDTIME PRN Administration Insomnia Labs CBC & Chem 7: 07/07/20 06:25 07/07/20 06:25 Labs: Laboratory Results - last 24 hr 07/05/20 07/06/20 07/06/20 16:02 16:42 20:24 WBC RBC Hgb Hct MCV MCH MCHC RDW Plt Count MPV Immature Gran % (Auto) Neut % (Auto) Lymph % (Auto) [place] % (Auto) Eos % (Auto) Baso % (Auto) Lymph # (Auto) [place] # (Auto) Eos # (Auto) Baso # (Auto) Abs Immat Gran (auto) Absolute Neuts (auto) Absolute Nucleated RBC Nucleated RBC % (auto) Sodium Potassium Chloride Carbon Dioxide Anion Gap BUN Creatinine Estim Creat Clear Calc Estimated GFR POC Glucose 232 H 124 H Random Glucose Calcium Hep B Viral Load Log <1.18 NOT DETECTED Hep C Viral Load <15 NOT DETECTED 07/07/20 07/07/20 07/07/20 06:25 06:25 07:44 WBC 8.0 RBC 2.84 L Hgb 8.3 L Hct 25.0 L MCV 88.0 MCH 29.2 MCHC 33.2 RDW 13.2 Plt Count 225 MPV 10.6 Immature Gran % (Auto) 0.5 H Neut % (Auto) 72.3 Lymph % (Auto) 20.4 [place] % (Auto) 4.0 Eos % (Auto) 2.4 Baso % (Auto) 0.4 Lymph # (Auto) 1.6 [place] # (Auto) 0.3 Eos # (Auto) 0.2 Baso # (Auto) 0.0 Abs Immat Gran (auto) 0.04 H Absolute Neuts (auto) 5.8 Absolute Nucleated RBC 0.000 Nucleated RBC % (auto) 0.0 Sodium 142 Potassium 3.7 Chloride 108 Carbon Dioxide 24 Anion Gap 14 BUN 15 Creatinine 1.49 H Estim Creat Clear Calc 38.9 Estimated GFR 37 POC Glucose 158 H Random Glucose 153 H Calcium 7.5 L Hep B Viral Load Log Hep C Viral Load 07/07/20 12:08 WBC RBC Hgb Hct MCV MCH MCHC RDW Plt Count MPV Immature Gran % (Auto) Neut % (Auto) Lymph % (Auto) [place] % (Auto) Eos % (Auto) Baso % (Auto) Lymph # (Auto) [place] # (Auto) Eos # (Auto) Baso # (Auto) Abs Immat Gran (auto) Absolute Neuts (auto) Absolute Nucleated RBC Nucleated RBC % (auto) Sodium Potassium Chloride Carbon Dioxide Anion Gap BUN Creatinine Estim Creat Clear Calc Estimated GFR POC Glucose 167 H Random Glucose Calcium Hep B Viral Load Log Hep C Viral Load Microbiology Microbiology Results: Microbiology 07/01/20 15:56 Blood - Venous Blood Culture - Final No growth after 5 days. 07/01/20 15:46 Blood - Venous Blood Culture - Final No growth after 5 days. Assessment and Plan (1) WARNER (acute kidney injury): Status: Acute (2) Proteinuria: Status: Acute (3) Osteomyelitis: Problem details: Chronic,not curable on toe Related to hardware Status: Acute (4) Anemia: Status: Acute (5) CKD (chronic kidney disease) stage 3, GFR 30-59 ml/min: Status: Acute (6) Foot osteomyelitis, left: Status: Acute (7) Acute kidney injury superimposed on CKD: Status: Acute (8) HTN (hypertension): Status: Inactive Assessment and Plan: hospital d#7 50yo F with DM2, CKD3 [baseline SCr 1.5], prior L 4th toe amputation and R TMTA admitted with ulcerated L toe infection with osteomyelitis # L great toe osteomyelitis/DM foot infection - Vascular Surgery + Orthopedics recommend toe amputation with removal of ankle hardware but she refuses despite discussion of risks - got 7d of vanco + pip/pa, per ID switch to PO levofloxacin + metronidazole to complete 4 wk; EKG today QTc 442 ms - will consult our wound service for wound care recommendations for home care - has [facility] appt 07/22/19 at 9:30a # HTN - continue amlodipine # WARNER/CKD3 - likely was prerenal + infection-associated ATN/GN; SCr now at baseline with likely underlying DM nephropathy # anemia of CKD - Hb responded to transfusion 2u pRBCs; outpt epo # DM2, A1c 7.3 - correction-dose lispro # opioid use disorder - continue methadone # HCV Ab+ - viral load negative # VTE ppx - UFH # dispo - likely home tomorrow with VNA
--- NOTE | 2020-07-07 14:38 | P.F2F_ITS ---
Service Date Service Date: 07/07/20 Encounter Date of encounter: 07/07/20 Reasons for Services Reason for fpc: wound care, medication treatment and teach disease management Reason for physical therapy: home safety and mobility, therapeutic exercises, restore joint function, gait/transfer training, assess need for DME, ADL training and energy conservation Overseeing Care: Tamanna Roland Homebound: Leaving the home is medically contraindicated at this time without the asist of a device and/or another person due th the listed conditions above and below. Reason homebound: immunosuppression / infection risk and weakness related to hospital stay Homebound supporting statement: Patient admitted to [facility] for DM foot wound/osteomyelitis. Refused recommended amputation and hardware removal. Needs wound care. Will be treated with oral antibiotics and will be seen at [facility] 07/22/19 at 9:30am Certification: Based on the above findings, I certify that this patient is confined to the home and needs intermittent fpc care, physical therapy and/or speech therapy, or continues to need occupational therapy. The patient is under my care, and I have initiated the establishment of the plan of care. The patient will be followed by a physician who will periodically review the plan of care.
[2020-07-07] MEDS: Metoprolol Succinate ER 25 MG TAB.ER.24H PO (16:50)
[2020-07-07 16:52] LABS: Glucose, Whole Blood 152 mg/dL (60-115)
[2020-07-07] MEDS: oxyCODONE HCl Immed Release 5 MG TABLET PO (16:59)
[2020-07-07 20:11] LABS: Glucose, Whole Blood 95 mg/dL (60-115)
[2020-07-07] MEDS: Gabapentin 100 MG CAPSULE PO (20:11)
[2020-07-08] VITALS (7 sets, daily range): BP systolic 155–191; BP diastolic 73–97; PULSE 80–93; RESP 15–20; TEMP 35.9–37; O2SAT 96–100
[2020-07-08] MEDS: metroNIDAZOLE 500 MG TABLET PO ×3 (00:54→16:22)
[2020-07-08] MEDS: Heparin Sodium,Porcine 5,000 UNIT/ML VIAL 5000 UNIT SUBCUT ×3 (00:54→16:21)
[2020-07-08] MEDS: 0.9 % Sodium Chloride Flush 3 ML SYRINGE IVFLUSH ×3 (01:00→16:22)
[2020-07-08 08:00] LABS: Glucose, Whole Blood 104 mg/dL (60-115)
[2020-07-08] MEDS: amLODIPine Besylate 5 MG TABLET 10 MG PO (08:20)
[2020-07-08] MEDS: hydrALAZINE HCl 25 MG TABLET PO (09:39)
[2020-07-08] MEDS: Metoprolol Succinate ER 50 MG TAB.ER.24H PO (09:39)
[2020-07-08] MEDS: QUEtiapine Fumarate 50 MG TABLET 150 MG PO ×2 (10:48→21:04)
[2020-07-08 11:38] LABS: Glucose, Whole Blood 179 mg/dL (60-115)
[2020-07-08] MEDS: Insulin Lispro 100 UNIT/ML 3 ML VIAL SUBCUT ×2 (12:05→17:48)
--- NOTE | 2020-07-08 13:46 | P.DS_ITS ---
DS: Providers Provider Date of Service: 07/13/20 Date of admission: 07/01/20 23:53 Primary care physician: Tamanna Roland Consults: 07/01/20 23:52 Consult to Infectious Diseases Routine Consulting Provider: Infectious Disease Reason for consultation: LLE cellulitis Has provider been notified: No 07/02/20 00:31 Consult to Nephrology Routine Consulting Provider: [facility] Reason for consultation: CKD Has provider been notified: No 07/02/20 00:32 Consult to Orthopedics Routine Consulting Provider: [facility] Reason for consultation: LLE OM / hardware in ankle Has provider been notified: Yes 07/02/20 13:03 Consult to Vascular Surgery Routine Consulting Provider: Jairo Jacobs Reason for consultation: osteomylitis of foot, may need amputation Has provider been notified: No 07/07/20 14:21 Consult to Wound Care Provider Stat Consulting Provider: [facility] Reason for consultation: purulent L toe wound refusing amputation DS: Diagnosis Discharge Diagnosis (1) Proteinuria: Status: Acute (2) Osteomyelitis: Status: Acute Problem details: Chronic,not curable on toe Related to hardware (3) Anemia: Status: Acute (4) Foot osteomyelitis, left: Status: Acute (5) Acute kidney injury superimposed on CKD: Status: Acute (6) HTN (hypertension): Status: Inactive (7) Cellulitis: Status: Acute Problem details: Resolving cellulitis on IV antibiotics (8) Diabetic foot ulcer: Status: Acute DS: Medications Discharge Medications Home Medications: Home Medications Medication Instructions Recorded Confirmed alprazolam 1 - 2 mg PO DAILY 07/01/20 07/01/20 docusate sodium 100 mg PO DAILY 07/01/20 07/01/20 trazodone 100 - 200 mg PO BEDTIME PRN 07/01/20 07/01/20 gabapentin 100 mg PO BEDTIME 07/02/20 07/02/20 methadone 47 mg PO DAILY 07/02/20 07/02/20 sennosides [senna] 8.6 mg PO BEDTIME 07/02/20 07/02/20 quetiapine [Seroquel XR] 300 mg PO DAILY 07/06/20 07/06/20 Previous Rx's Medication Instructions Recorded amlodipine 10 mg PO DAILY #30 tab 07/08/20 levofloxacin 750 mg PO Q48H 26 Days #13 tab 07/08/20 metoprolol succinate 50 mg PO DAILY #30 tab 07/08/20 metronidazole 500 mg PO Q8H 26 Days #78 tab 07/08/20 DS: Summary Hospital Course Hospital Course: from admission history and physical by hospitalist MD Guevara Nagy, 07/01/20: 50 y/o female with an extensive PMHx including Uncontrolled diabetes s/p right transmetatarsal amputation and left 4th digit amputation who presented from home due to LLE cellulitis. Patient is a very poor historian. Reported that for the past week has been having increased erythema of the left foot associated with a blister filled of pus in the superior aspect of the left foot. Patient denies any chest pain, SOB, nausea, vomiting or fever. Does report that has been following with Wound care, last appointment on 06/22/20 where had debridement done per patient. On presentation to the ED patient is noted to be hypertensive 160/60 mmHg, no evidence of fever. Hgb of 6.1, ESR >140, creatinine improved from 2.25 to 1.77, Na of 133, Initial poct of 629, CRP of 26. ED attending treated patient with IV Vanco/Zosyn and pain meds. Orthopedic Dr Ba was consulted per ED given patient has a hardware on left ankle but after imaging was done per ortho there is no concern for infection affecting hardware, ortho to follow up in the am. Per CT of left foot there is evidence of left distal phalanx OM. Patient seen and examined at the bedside, laying down in bed in no acute distress. ROS as above otherwise negative. Physical exam showing left foot cellulitis with purulent vesicle extending from mid foot to left great toe. Superficial destruction of left great toe structure is evident. Ms Mishra was admitted to the medical/surgical floor and treated with vancomycin and piperacillin/tazobactam for 7 days. Vascular Surgery was consulted and recommended amputation of the left great toe with removal of left ankle hardware after discussion with Orthopedics. However, she refused repeatedly despite counseling on the risks of worsening osteomyelitis and nonhealing diabetic foot infection. Infectious Disease was consulted and she was switched to renally dosed levofloxacin plus metronidazole for 28 days. She was noted to be quite anemic, likely due to chronic kidney disease, and was transfused 2 units of packed red blood cells. She may benefit from erythropoietin injections an outpatient. She had some acute kidney injury superimposed on stage 3 chronic kidney disease, likely due to prerenal state plus infection-associated ATN. Serum creatinine returned to baseline. She will need follow-up with nephrology as an outpatient. Blood pressure was quite elevated, and she was started on amlodipine plus metoprolol succinate. Ultimately, she was discharged home with VNA services, and will follow-up with Infectious Disease, vascular surgery, and [facility] wound clinic. Time Spent with Patient Time attestation: Total time spent providing and/or coordinating discharge services: 45 Discharge coordination time: Greater than 30 minutes Physical Exam Vital Signs: Vital Signs: Last Vital Signs Temp 97.1 F 07/08/20 11:28 Pulse 88 07/08/20 11:28 Resp 17 07/08/20 11:28 BP 191/83 H 07/08/20 11:28 Pulse Ox 98 07/08/20 11:28 Body Mass Index 27.1 Gen: in no acute distress HEENT: sclera anicteric, moist mucus membranes Neck: supple Lungs: clear to auscultation bilaterally Heart: regular rate and rhythm, no murmurs Abd: soft, non-tender, non-distended Ext: extensive ulceration and drainage of L great to' prior L 4th toe amputation; prior R TMTA Skin: warm/well-perfused Neuro: alert and oriented x3, no focal findings Psych: anxious DS: Data Data Completed and Pending Labs on day of discharge: Laboratory Results WBC 8.0 X10*3/uL (4.8-10.8) 07/07/20 06:25 RBC 2.84 X10*6/uL (4.20-5.50) L 07/07/20 06:25 Hgb 8.3 g/dl (12.0-16.0) L 07/07/20 06:25 Hct 25.0 % (37-47) L 07/07/20 06:25 MCV 88.0 fL (80-98) 07/07/20 06:25 MCH 29.2 pg (27.0-33.0) 07/07/20 06:25 MCHC 33.2 g/dl (31.0-35.0) 07/07/20 06:25 RDW 13.2 % (11.0-16.0) 07/07/20 06:25 Plt Count 225 X10*3/uL (160-400) 07/07/20 06:25 MPV 10.6 fL (9.4-12.3) 07/07/20 06:25 Immature Gran % (Auto) 0.5 % (0.0-0.4) H 07/07/20 06:25 Neut % (Auto) 72.3 % (45-73) 07/07/20 06:25 Lymph % (Auto) 20.4 % (20-40) 07/07/20 06:25 Bailey % (Auto) 4.0 % (2-11) 07/07/20 06:25 Eos % (Auto) 2.4 % (0-4) 07/07/20 06:25 Baso % (Auto) 0.4 % (0-2) 07/07/20 06:25 Lymph # (Auto) 1.6 X10*3/uL (1.2-4.9) 07/07/20 06:25 Bailey # (Auto) 0.3 X10*3/uL (0.1-1.2) 07/07/20 06:25 Eos # (Auto) 0.2 X10*3/uL (0.0-0.4) 07/07/20 06:25 Baso # (Auto) 0.0 X10*3/uL (0.0-0.2) 07/07/20 06:25 Abs Immat Gran (auto) 0.04 X10*3/uL (0.00-0.03) H 07/07/20 06:25 Absolute Neuts (auto) 5.8 X10*3/uL (2.0-8.3) 07/07/20 06:25 Absolute Nucleated RBC 0.000 X10*3/uL (0.0-0.012) 07/07/20 06:25 Nucleated RBC % (auto) 0.0 /100WBC (0.0-0.2) 07/07/20 06:25 ESR 119 MM/HR (0-20) H 07/05/20 09:08 PT 14.3 SEC (10.8-13.0) H 07/01/20 15:46 INR 1.2 (0.9-1.1) H 07/01/20 15:46 APTT 29.7 SEC (24.1-38.0) 07/01/20 15:46 Sodium 142 mmol/L (135-145) 07/07/20 06:25 Potassium 3.7 mmol/L (3.3-5.1) 07/07/20 06:25 Chloride 108 mmol/L (96-108) 07/07/20 06:25 Carbon Dioxide 24 mmol/L (22-29) 07/07/20 06:25 Anion Gap 14 (12-20) 07/07/20 06:25 BUN 15 mg/dL (9-16) 07/07/20 06:25 Creatinine 1.49 mg/dL (0.5-1.4) H 07/07/20 06:25 Estim Creat Clear Calc 38.9 07/07/20 06:25 Estimated GFR 37 07/07/20 06:25 POC Glucose 179 mg/dL (60-115) H 07/08/20 11:32 Random Glucose 153 mg/dL (60-115) H 07/07/20 06:25 Estimat Average Glucose 163 mg/dL 07/05/20 09:08 Hemoglobin A1c % 7.3 % 07/05/20 09:08 Lactic Acid 0.9 mmol/L (0.5-2.0) 07/01/20 15:46 Calcium 7.5 mg/dL (8.4-10.2) L 07/07/20 06:25 Magnesium 1.7 mg/dL (1.6-2.6) 07/01/20 15:49 Iron 33 mcg/dL (30-160) 07/05/20 09:08 TIBC 145 mcg/dL (228-428) L 07/05/20 09:08 % Saturation 23 % (15-50) 07/05/20 09:08 Unsat Iron Binding 112 ug/dL 07/05/20 09:08 Ferritin 289 ng/mL (10-250) H 07/05/20 09:08 Total Bilirubin 0.5 mg/dL (0.0-1.0) 07/01/20 15:49 Direct Bilirubin 0.3 mg/dL (0.0-0.5) 07/01/20 15:49 AST 13 U/L (5-31) 07/01/20 15:49 ALT 11 U/L (0-31) 07/01/20 15:49 Alkaline Phosphatase 241 U/L (39-117) H 07/01/20 15:49 Total Creatine Kinase 22 U/L (26-140) L 07/01/20 15:46 C-Reactive Protein 10.30 mg/dL (< or = 0.50) H 07/05/20 09:08 Total Protein 6.7 g/dL (6.5-8.0) 07/01/20 15:49 Albumin 2.6 g/dL (3.5-5.0) L 07/01/20 15:49 Vitamin B12 332 pg/mL (200-900) 07/05/20 09:08 Folate 15.7 ng/mL (> or = 4.0) 07/05/20 09:08 Random Vancomycin 16.2 mcg/mL (15-20) 07/02/20 14:46 IgG Total 1949 mg/dL (600-1640) H 07/02/20 12:41 IgA Total 351 mg/dL (47-310) H 07/02/20 12:41 IgM 289 mg/dL (50-300) 07/02/20 12:41 MEDHAT Interpretation SEE NOTE 07/02/20 12:41 MARIE Screen NEGATIVE (NEGATIVE) 07/02/20 12:41 MARIE Titer TNP 07/02/20 12:41 MARIE Titer 2 TNP 07/02/20 12:41 MARIE Titer 3 TNP 07/02/20 12:41 MARIE Pattern TNP 07/02/20 12:41 MARIE Pattern 2 TNP 07/02/20 12:41 MARIE Pattern 3 TNP 07/02/20 12:41 Complement C3 162 mg/dL (83-193) 07/02/20 12:41 Complement C4 43 mg/dL (15-57) 07/02/20 12:41 C. difficile Tox B Gene NEGATIVE (Negative) 07/06/20 00:42 C. difficile Toxin A&B Negative (Negative) 07/06/20 00:42 C. difficile Antigen Positive (Negative) A 07/06/20 00:42 C. difficile Interpret PCR to be performed 07/06/20 00:42 COVID-19 (LESLY) Negative (Negative) 07/01/20 15:46 COVID-19 Clin Com See Note 07/01/20 15:46 Hep Bs Antigen Negative (Negative) 07/02/20 12:41 Hep Bs Antibody REACTIVE (Nonreactive) 07/02/20 12:41 Hep B Core Total Ab Reactive (Nonreactive) 07/02/20 12:41 Hep B Core IgM Ab NON-REACTIVE (NON-REACTIVE) 07/02/20 12:41 Hep B Viral Load Log <1.18 NOT DETECTED Log IU/mL (NOT DETECTED) 07/05/20 16:02 Hepatitis C Ab (EIA) Reactive (Nonreactive) H 07/02/20 12:41 Hep C Viral Load <15 NOT DETECTED IU/mL (NOT DETECTED) 07/05/20 16:02 Blood Type A Negative 07/01/20 16:23 Antibody Screen NEGATIVE 07/01/20 16:23 Crossmatch See Detail 07/01/20 16:23 Impressions Foot X-Ray 07/01/20 14:37 IMPRESSION: Soft tissue swelling with gas at the distal aspect of the first digit. Associated erosion of the distal aspect of the first digit distal phalanx. This is consistent with osteomyelitis. Foot CT 07/01/20 17:37 IMPRESSION: 1. CT left foot. Destruction of the distal phalanx of the great toe. There is gas in the surrounding soft tissues. Findings consistent with osteomyelitis. 2. CT left lower leg. No evidence for osteomyelitis. No air in the soft tissues. Status post ORIF lateral malleolar fracture. Endosteal healing of lateral malleolar fracture. Lower Extremity CT 07/01/20 17:38 IMPRESSION: 1. CT left foot. Destruction of the distal phalanx of the great toe. There is gas in the surrounding soft tissues. Findings consistent with osteomyelitis. 2. CT left lower leg. No evidence for osteomyelitis. No air in the soft tissues. Status post ORIF lateral malleolar fracture. Endosteal healing of lateral malleolar fracture. Duplex Scan Lower Extremity Artery 07/05/20 00:00 IMPRESSION: RIGHT LEG: AMINAH not obtained due to overlying bandages. No evidence of arterial insufficiency by duplex criteria. LEFT LEG: AMINAH not obtained due to overlying bandages. Mild multifocal arterial occlusive disease throughout the left lower extremity. Bilateral enlarged groin lymph nodes. Discharge Plan Discharge Anticipated Discharge Date/Time: 07/08/20 13:33 Patient Disposition: Home Health Service Referrals: [facility] [Outside] ( , Daily dressing changes) Martha Jauregui MD [Physician] - Jairo Jacobs MD [Physician] - Tamanna Roland [Primary Care Provider] - Alex Ayoub MD [Physician] - Discharge Medications: New metoprolol succinate 50 mg Tablet Extended Release 24 Hr 50 mg PO DAILY Qty: 30 RF: 0 metronidazole 500 mg Tablet 500 mg PO Q8H 26 Days Qty: 78 RF: 0 amlodipine 5 mg Tablet 10 mg PO DAILY Qty: 30 RF: 0 levofloxacin 750 mg Tablet 750 mg PO Q48H 26 Days Qty: 13 RF: 0 Continued alprazolam 1 mg Tablet 1 - 2 mg PO DAILY RF: 0 trazodone 100 mg Tablet 100 - 200 mg PO BEDTIME PRN (Reason: Insomnia) RF: 0 docusate sodium 100 mg Capsule 100 mg PO DAILY RF: 0 gabapentin 100 mg Capsule 100 mg PO BEDTIME RF: 0 methadone 10 mg/mL Concentrate 47 mg PO DAILY RF: 0 sennosides [senna] 8.6 mg Tablet 8.6 mg PO BEDTIME RF: 0 quetiapine [Seroquel XR] 300 mg Tablet Extended Release 24 Hr 300 mg PO DAILY RF: 0 Discharge Orders: Discharge Order (Routine); Ordered 07/09/20 Ordered By: Dragan Molina Diet: diabetic diet and low salt diet Activity on Discharge: As tolerated Stand Alone Forms: Patient Portal Discharge page Other Ambulatory Orders: Basic Metabolic Panel (Routine) Timeframe: 1 Week Facility: [facility] - Location: Laboratory Ordered By: Corey Denton Complete Blood Count Auto Diff (Routine) Timeframe: 1 Week Facility: [facility] - Location: Laboratory Ordered By: Corey Denton C Reactive Protein (Routine) Timeframe: 1 Week Facility: [facility] - Location: Laboratory Ordered By: Corey Denton Erythrocyte Sedimentation Rate (Routine) Timeframe: 1 Week Facility: [facility] - Location: Laboratory Ordered By: Corey Denton Care Plan Goals: resolution of diabetic foot infection control of blood pressure prevention of worsening kidney disease Health Concerns: osteomyelitis (bone infection) from non-healing diabetic foot ulcer, with concern of infected ankle hardware high blood pressure chronic kidney disease Plan of Treatment: We strongly urge you to undergo amputation of the left great toe along with removal of left ankle hardware. However, you refused repeatedly. As such, we are prescribing a total of 4 weeks of oral antibiotic therapy with LEVOFLOXACIN 750 MG EVERY OTHER DAY plus METRONIDAZOLE 500 MG THREE TIMES A DAY. You should follow up with: - [facility] on 07/22/19 at 9:30a - Jairo Jacobs, Vascular Surgery, [address], [address], Surgery [facility] [address] - Malini Jauregui, Infectious Disease, 2 weeks [facility] [address] [place] [address], [address], Medicine [facility] [address] Please also have labs drawn in 1 week: CBC with differential, BMP, CRP and ESR. You do not need to be fasting for these. Your blood pressure is high. Please take AMLODIPINE 10 MG DAILY plus METOPROLOL SUCCINATE 50 MG DAILY You have chronic kidney disease, likely related to history of diabetes. Please follow up in 4 weeks with Alex Ayoub from Nephrology: [facility] [address], [address], [facility] [address] Patient Instructions: Metronidazole (By mouth), Levofloxacin (By mouth), Chronic Kidney Disease (DC), Osteomyelitis (DC), Chronic Hypertension (DC), Diabetic Foot Ulcers (ED) Discharge Date/Time: 07/09/20 16:50
--- NOTE | 2020-07-08 13:55 | P.PNIM_ITS ---
Subjective Subjective Date of Service: 07/08/20 Interval History: insists on going home again denies surgery despite counseling on risks of progression of osteomyelitis/DM foot infection/nonhealing ulcer BP still high awaiting accepting VNA service Physical Exam Vital Signs: Vital Signs: Last Vital Signs Temp 97.1 F 07/08/20 11:28 Pulse 88 07/08/20 11:28 Resp 17 07/08/20 11:28 BP 191/83 H 07/08/20 11:28 Pulse Ox 98 07/08/20 11:28 Body Mass Index 27.1 Gen: in no acute distress HEENT: sclera anicteric, moist mucus membranes Neck: supple Lungs: clear to auscultation bilaterally Heart: regular rate and rhythm, no murmurs Abd: soft, non-tender, non-distended Ext: extensive ulceration and drainage of L great toe [see photo from 07/06 ID consult note]; prior L 4th toe amputation; prior R TMTA Skin: warm/well-perfused Neuro: alert and oriented x3, no focal findings Psych: anxious Objective Data Current Medications Generic Name Dose Route Start Last Admin Trade Name Freq PRN Reason Stop Dose Admin Alprazolam 1 mg 07/02/20 09:00 07/07/20 14:15 Alprazolam 0.5 Mg Tablet PO 1 mg DAILY PRN Administration Anxiety Amlodipine Besylate 10 mg 07/05/20 09:00 07/08/20 08:20 Amlodipine Besylate 5 Mg Tablet PO 10 mg DAILY RANDY Administration Protocol Docusate Sodium 100 mg 07/02/20 09:00 07/08/20 08:21 Docusate Sodium 100 Mg Capsule PO Not Given DAILY RANDY Gabapentin 100 mg 07/02/20 21:00 07/07/20 20:11 Gabapentin 100 Mg Capsule PO 100 mg BEDTIME RANDY Administration Heparin Sodium (Porcine) 5,000 unit 07/05/20 16:00 07/08/20 08:21 Heparin Sodium,Porcine 5,000 Unit/Ml Vial SUBCUT 5,000 unit Q8H RANDY Administration Hydralazine HCl 25 mg 07/06/20 00:14 07/08/20 09:39 Hydralazine Hcl 25 Mg Tablet PO 25 mg TID PRN Administration BP>180/90 Protocol Insulin Human Lispro 0 unit 07/03/20 16:30 02/04/21 12:05 Insulin Lispro 100 Unit/Ml 3 Ml Vial SUBCUT 2 unit QIDACHS [facility] Administration Protocol Levofloxacin 750 mg 07/07/20 08:00 07/07/20 09:33 Levofloxacin 750 Mg Tablet PO 750 mg Q48H RANDY Administration Methadone HCl 50 mg 07/02/20 17:45 07/08/20 10:48 Methadone Hcl 1 Mg/0.1 Ml Oral.Conc PO 50 mg DAILY RANDY Administration Metoprolol Succinate 50 mg 07/08/20 09:00 07/08/20 09:39 Metoprolol Succinate Er 50 Mg Tab.Er.24h PO 50 mg DAILY [facility] Administration Protocol Metronidazole 500 mg 07/07/20 08:00 07/08/20 08:20 Metronidazole 500 Mg Tablet PO 500 mg Q8H [facility] Administration Pharmacy Consult 1 each 07/01/20 14:32 Consult Rx Perform Med Rec MISCELLANE ONCE PRN Consult order Pharmacy Consult 1 each 07/02/20 00:28 Consult Rx Vancomycin Dosing MISCELLANE DAILY PRN Consult order Quetiapine Fumarate 150 mg 07/06/20 21:00 07/08/20 10:48 Quetiapine Fumarate 50 Mg Tablet PO 150 mg BID [facility] Administration Senna 8.6 mg 07/02/20 21:00 07/07/20 22:24 Sennosides 8.6 Mg Tablet PO Not Given BEDTIME [facility] Sodium Chloride 3 ml 07/02/20 00:00 07/08/20 08:20 0.9 % Sodium Chloride Flush 3 Ml Syringe IVFLUSH 3 ml QSHIFT [facility] Administration Sodium Hypochlorite 1 appl 07/08/20 13:45 Sodium Hypochlorite 0.125% 473 Ml Solution TOPICAL DAILY [facility] Trazodone HCl 100 - 200 mg 07/01/20 23:47 07/05/20 22:54 Trazodone Hcl 100 Mg Tablet PO 200 mg BEDTIME PRN Administration Insomnia Labs CBC & Chem 7: 07/07/20 06:25 07/07/20 06:25 Labs: Laboratory Results - last 24 hr 07/07/20 07/07/20 07/08/20 16:45 19:50 07:47 POC Glucose 152 H 95 104 07/08/20 11:32 POC Glucose 179 H Microbiology Microbiology Results: Microbiology 07/01/20 15:56 Blood - Venous Blood Culture - Final No growth after 5 days. 07/01/20 15:46 Blood - Venous Blood Culture - Final No growth after 5 days. Assessment and Plan (1) WARNER (acute kidney injury): Status: Acute (2) Proteinuria: Status: Acute (3) Osteomyelitis: Problem details: Chronic,not curable on toe Related to hardware Status: Acute (4) Anemia: Status: Acute (5) CKD (chronic kidney disease) stage 3, GFR 30-59 ml/min: Status: Acute (6) Foot osteomyelitis, left: Status: Acute (7) Acute kidney injury superimposed on CKD: Status: Acute (8) HTN (hypertension): Status: Inactive Assessment and Plan: hospital d#8 50yo F with DM2, CKD3 [baseline SCr 1.5], prior L 4th toe amputation and R TMTA admitted with ulcerated L toe infection with osteomyelitis # L great toe osteomyelitis/DM foot infection - Vascular Surgery + Orthopedics recommend toe amputation with removal of ankle hardware but she refuses despite discussion of risks - got 7d of vanco + pip/pa, per ID switch to PO levofloxacin + metronidazole to complete 4 wk; EKG today QTc 442 ms - will consult our wound service for wound care recommendations for home care- Dakins wet->dry daily - has [facility] appt 07/22/19 at 9:30a # HTN - continue amlodipine, added metoprolol succinate # WARNER/CKD3 - likely was prerenal + infection-associated ATN/GN; SCr now at baseline with likely underlying DM nephropathy, will need outpt Nephrology f/u # anemia of CKD - Hb responded to transfusion 2u pRBCs; outpt epo to be considered by Nephrology # DM2, A1c 7.3 - correction-dose lispro # opioid use disorder - continue methadone # HCV Ab+ - viral load negative # VTE ppx - UFH # dispo - awaiting accepting VNA
--- NOTE | 2020-07-08 14:08 | MHC.CM.PN ---
Per ROUNDS discussion, Patient insists on a home dc. Patient is on Methadone and has had multiple VNA denials (needs LT IVABT).[facility] & [facility] [place] are interested but Patient insists on going home. CM awaits a few more responses from VNAs and is aware of this situation.
[2020-07-08 16:09] LABS: Glucose, Whole Blood 156 mg/dL (60-115)
--- NOTE | 2020-07-08 17:27 | PM.PNNEP ---
Subjective Subjective Date of Service: 07/08/20 Interval history: Events noted. All recent data reviewed Physical Exam Vital Signs: Vital Signs: Last Vital Signs Temp 96.7 F L 07/08/20 15:55 Pulse 80 07/08/20 15:55 Resp 16 07/08/20 15:55 BP 179/76 H 07/08/20 15:55 Pulse Ox 100 07/08/20 15:55 Body Mass Index 27.1 Const: General: no acute distress Orientation/consciousness: patient oriented x3 Neck: Neck: Yes supple Resp: Auscultation: diminished lung sounds Cardio: Rate: regular rate GI: Palpation (GI): Soft to palpation Neuro: General: patient oriented x3 Objective Data Labs CBC & Chem 7: 07/07/20 06:25 07/07/20 06:25 Labs: Laboratory Results - last 24 hr 07/07/20 07/08/20 07/08/20 19:50 07:47 11:32 POC Glucose 95 104 179 H 07/08/20 16:02 POC Glucose 156 H Microbiology Microbiology Results: Microbiology 07/01/20 15:56 Blood - Venous Blood Culture - Final No growth after 5 days. 07/01/20 15:46 Blood - Venous Blood Culture - Final No growth after 5 days. Assessment & Plan Assessment and plan (1) CKD (chronic kidney disease) stage 3, GFR 30-59 ml/min: Problem details: (1) WARNER (acute kidney injury)( resolved) (2) Proteinuria (3) Osteomyelitis (4) Anemia (5) CKD (chronic kidney disease) stage 3, GFR 30-59 ml/min Renal function close to baseline proteinuria ~ 1.7 gram negative hepatitis profile Baseline serum creatinine ~ 1.5 mg/dl; Will need EPO as outpt C/W current supportive care. Shall follow up in the office when D/Alberto Status: Acute Time Spent With Patient Time: Total time spent is greater than 50% in coordination of care (as documented) at patient's floor/unit and/or counseling patient:
[2020-07-08] MEDS: oxyCODONE HCl Immed Release 5 MG TABLET PO (17:48)
--- NOTE | 2020-07-08 18:58 | HO.WOUNDCONS ---
History of Present Illness Data of Consult Service Date: 07/08/20 Requesting physician: Corey Denotn Primary Care Provider: Tamanna Roland HPI Reason for consult: Infected left foot The patient is a 50-year-old female diabetes with multiple medical issues now with a infected gangrenous left foot requiring amputation which she refuses to have. The patient has had issues in the past with her right foot and was hospitalized at [facility] where she underwent right TMA in the past. She has had wounds in the left foot and goes to the [facility] for treatment. Recently her wounds got worse and so she came here to [facility] where she was admitted and evaluated by vascular surgery. She apparently has some degree of hardware present but with the progression of the necrotic tissue and her baseline diabetes and vascular status the recommendation is to undergo amputation of at least the great toe at the metatarsal level if not a complete TMA. The patient is refusing once the leave the hospital and is deciding whether to go to [facility] for further evaluation. At this point with me coming on board I told her that I saw her picture is a and them a green that most likely she needs an amputation and she has upset by me saying this and at this point not necessarily allowing me to progress with examination. She says that if something is going to be done she prefers for it to be done at [facility]. on asking her which did her amputation she cannot recall this Review of Systems Review of Systems: Gen: no fever Resp: no sob, no cough CV: no chest, no FREDERICK, no leg edema GI: No n/v, no abd pain Neuro: No confusion pain in the foot Yes all other systems are reviewed and are negative Constitutional: Constitutional: Reports as per HPI and Reports no additional constitutional complaints Cardiovascular: Cardiovascular: Denies chest pain, Denies chest pain at rest, Denies chest pain with activity and Denies pedal edema Respiratory: Respiratory: Denies cough Gastrointestinal: Gastrointestinal: Denies abdominal pain Musculoskeletal: Musculoskeletal: Denies abnormal gait, Denies muscle cramps, Denies radiating pain into limb and Reports other (Left foot pain/erythema) Integumentary/Breasts: Skin/Breast: Denies skin ulcer and Denies wounds Neurologic: Denies abnormal gait Psychiatric: Psychiatric: Reports no additional psychiatric complaints [facility] Medical History Anemia Asthma CKD (chronic kidney disease) Diabetes Diabetic foot ulcer Hepatitis C virus infection cured after antiviral drug therapy HTN (hypertension) Osteomyelitis Functional capacity: independent ambulation Family History Father No problems noted. Mother No problems noted. Surgical History History of ankle surgery Social History Household Members: Spouse Housing: Apartment Do you presently have visiting nurse or other home services: Yes Alcohol intake: never Smoking Status: Current every day smoker Tobacco Type: Cigarette Cigarettes Per Day: 5 Smoked in Last 30 Days: Yes Patient Interested in Nicotine Replacement: No Patient Given Instructions on How to Stop Smoking: No Second Hand Smoke Exposure: Yes Use of substances other than those prescribed or required for medical reasons: Yes Substance Use Type: Heroin Last Used Substance Other:: pt stated on methadone has not used substances in many years Currently Displaying Signs/Symptoms of Drug Intoxication Withdrawal: No Any prior treatment program specific to substance use: Yes (methadone) Have you been hit, kicked, punched, or otherwise hurt by someone within the past year? If so, by whom?: No Do you feel safe in your current relationship?: Yes Is there a partner from a previous relationship who is making you feel unsafe now?: No Are you made to feel afraid or neglected: No Advance Directives: Yes Advance Directives Information Provided: Yes Advance Directives on File: No Advance Directives Date on File: 07/02/20 Do you have thoughts of harming others: None Do you have a plan to hurt others: No Plan Recently lost weight without trying: Yes service: No Current occupational status: disabled Meds Allergies Allergy/AdvReac Type Severity Reaction Status Date / Time No Known Allergies Allergy Verified 03/10/20 13:02 [No Known Allergies*] Home Medications Medication Instructions Recorded Confirmed Type alprazolam 1 - 2 mg PO DAILY 07/01/20 07/01/20 History docusate sodium 100 mg PO DAILY 07/01/20 07/01/20 History trazodone 100 - 200 mg PO BEDTIME PRN 07/01/20 07/01/20 History gabapentin 100 mg PO BEDTIME 07/02/20 07/02/20 History methadone 47 mg PO DAILY 07/02/20 07/02/20 History sennosides [senna] 8.6 mg PO BEDTIME 07/02/20 07/02/20 History quetiapine [Seroquel XR] 300 mg PO DAILY 07/06/20 07/06/20 History Physical Exam Vital Signs and Narrative: Vital Signs: Last Vital Signs Temp 96.7 F L 07/08/20 15:55 Pulse 80 07/08/20 15:55 Resp 16 07/08/20 15:55 BP 179/76 H 07/08/20 15:55 Pulse Ox 100 07/08/20 15:55 Body Mass Index 27.1 Resp: Auscultation: crackles and rales Skin: Other: On exam patient has right TMA that is bandaged up in she denies any wounds present here. Patient has left foot bandaged and she just finished eating. At this point she is not allowing me to look at her foot. In examination of the photographs there is already 1 toe amputated on the left foot and the right great toe is dis formed in discolored with loss of soft tissue distally and necrotic tissue gangrenous tissue advancing onto the dorsum of the foot and moving laterally towards the 2nd 3rd toes. There is bullous blistering of the dorsum of the foot discoloration with grayish necrotic tissue. Apparently the patient does not have much sensation Extrem: Other: right TMA,stable plantar area left great toe fluctuant,serous Results Labs CBC and Chem 7: 07/07/20 06:25 07/07/20 06:25 Labs: Laboratory Results - last 24 hr 07/07/20 07/08/20 07/08/20 19:50 07:47 11:32 POC Glucose 95 104 179 H 07/08/20 16:02 POC Glucose 156 H Assessment and Plan (1) CKD (chronic kidney disease) stage 3, GFR 30-59 ml/min: Problem details: (1) WARNER (acute kidney injury)( resolved) (2) Proteinuria (3) Osteomyelitis (4) Anemia (5) CKD (chronic kidney disease) stage 3, GFR 30-59 ml/min Renal function close to baseline proteinuria ~ 1.7 gram negative hepatitis profile Baseline serum creatinine ~ 1.5 mg/dl; Will need EPO as outpt C/W current supportive care. Shall follow up in the office when D/Alberto Status: Acute hospital d#8 50yo F with DM2, CKD3 [baseline SCr 1.5], prior L 4th toe amputation and R TMTA admitted with ulcerated L toe infection with osteomyelitis At this point on my assessment the left foot infection places this patient at risk for sepsis. It would be extremely unlikely for this wound to heal with some degree of vascular insufficiency diabetes as well as foreign material present in the foot. The patient would do best by having early controlled partial amputation at least of the great toe at the metatarsal level and see how this improves with IV antibiotics and dressing changes. This would be the least of what is recommended. She understands that the wound is bad and that multiple people are suggesting amputation but she does not want to undergo this. We recommend Dakin's solution dressings but this is just to decrease the bacteria load an odor. I am concerned that she will get sick or before her outpatient wound care appointment. did advised her that we do have at [facility] wound care clinic here and that if after her amputation or other surgical management of the wound further dressings need to be carried out that we would be happy to try to facilitate that with her at this location. She appreciated that. (# L great toe osteomyelitis/DM foot infection - Vascular Surgery + Orthopedics recommend toe amputation with removal of ankle hardware but she refuses despite discussion of risks - got 7d of vanco + pip/pa, per ID switch to PO levofloxacin + metronidazole to complete 4 wk; EKG today QTc 442 ms - will consult our wound service for wound care recommendations for home care- Dakins wet->dry daily - has [facility] appt 07/22/19 at 9:30a) 0 -
[2020-07-08 20:59] LABS: Glucose, Whole Blood 98 mg/dL (60-115)
[2020-07-08] MEDS: Gabapentin 100 MG CAPSULE PO (21:05)
[2020-07-08] MEDS: ALPRAZolam 0.5 MG TABLET 1 MG PO (21:13)
--- NOTE | 2020-07-08 23:00 | PC.NURSE ---
P-Dakins solutions still not available,pharmacy notified I-patient refused to have her drsg change today,she states she may agree tommorrow e-will monitor
[2020-07-09] MEDS: metroNIDAZOLE 500 MG TABLET PO ×2 (00:57→08:32)
[2020-07-09] MEDS: 0.9 % Sodium Chloride Flush 3 ML SYRINGE IVFLUSH ×2 (00:57→09:38)
[2020-07-09] MEDS: Heparin Sodium,Porcine 5,000 UNIT/ML VIAL 5000 UNIT SUBCUT ×2 (00:58→08:33)
[2020-07-09 03:42] VITALS: BP 167/76; PULSE 81; RESP 18; TEMP 36.8; O2SAT 99
[2020-07-09 08:00] VITALS: BP 160/88; PULSE 82; RESP 16; TEMP 36.4; O2SAT 97
[2020-07-09 08:18] LABS: Glucose, Whole Blood 113 mg/dL (60-115)
[2020-07-09] MEDS: QUEtiapine Fumarate 50 MG TABLET 150 MG PO (08:26)
[2020-07-09] MEDS: levoFLOXacin 750 MG TABLET PO (08:31)
[2020-07-09] MEDS: amLODIPine Besylate 5 MG TABLET 10 MG PO (08:31)
[2020-07-09] MEDS: Metoprolol Succinate ER 50 MG TAB.ER.24H PO (08:31)
[2020-07-09] MEDS: Docusate Sodium 100 MG CAPSULE PO (08:31)
--- NOTE | 2020-07-09 11:19 | PM.PNNEP ---
Subjective Subjective Date of Service: 07/09/20 Interval history: Events noted. All recent data reviewed Physical Exam Vital Signs: Vital Signs: Last Vital Signs Temp 97.6 F 07/09/20 08:00 Pulse 82 07/09/20 08:00 Resp 16 07/09/20 08:00 BP 160/88 H 07/09/20 08:00 Pulse Ox 97 07/09/20 08:00 Body Mass Index 27.1 Const: General: no acute distress Orientation/consciousness: patient oriented x3 Neck: Neck: Yes supple Resp: Auscultation: diminished lung sounds Cardio: Rate: regular rate GI: Palpation (GI): Soft to palpation Neuro: General: patient oriented x3 and moves all extremities Objective Data Labs CBC & Chem 7: 07/07/20 06:25 07/07/20 06:25 Labs: Laboratory Results - last 24 hr 07/08/20 07/08/20 07/08/20 11:32 16:02 20:40 POC Glucose 179 H 156 H 98 07/09/20 08:04 POC Glucose 113 Microbiology Microbiology Results: Microbiology 07/01/20 15:56 Blood - Venous Blood Culture - Final No growth after 5 days. 07/01/20 15:46 Blood - Venous Blood Culture - Final No growth after 5 days. Assessment & Plan Assessment and plan (1) CKD (chronic kidney disease) stage 3, GFR 30-59 ml/min: Problem details: (1) WARNER (acute kidney injury)( resolved) (2) Proteinuria (3) Osteomyelitis (4) Anemia (5) CKD (chronic kidney disease) stage 3, GFR 30-59 ml/min Renal function close to baseline proteinuria ~ 1.7 gram negative hepatitis profile Baseline serum creatinine ~ 1.5 mg/dl; Will need EPO as outpt C/W current supportive care. Shall follow up in the office when D/Alberto Status: Acute Time Spent With Patient Time: Total time spent is greater than 50% in coordination of care (as documented) at patient's floor/unit and/or counseling patient:
[2020-07-09] MEDS: Sodium Hypochlorite 0.125% 473 ML SOLUTION 1 APPL TOPICAL (11:38)
[2020-07-09 11:57] VITALS: BP 159/77; PULSE 80; RESP 17; TEMP 36.8; O2SAT 99
[2020-07-09] MEDS: Insulin Lispro 100 UNIT/ML 3 ML VIAL SUBCUT (12:02)
[2020-07-09 12:16] LABS: Glucose, Whole Blood 165 mg/dL (60-115)
--- NOTE | 2020-07-09 13:39 | MHC.CM.PN ---
NURSE NET DEVELOPMENT MANAGER NOTE ELECTRONIC MEDICAL RECORD REVIEWED ALONG WITH CASE DISCUSSED ON MULTIPLE DISCIPLIANRY ROUNDS WITH THE HOSPITLAIST AND STAff mine , still seeking vna for dressing changes daily discharge plan -home with family transportation family self resumption f her meth[facility]one clinic [facility] 07/22/20
--- NOTE | 2020-07-09 15:32 | MHC.CM.PN ---
NURSE CONTINUOUS IMPROVEMENT COORDINATOR NOTE UPDATED DISCHARGE 1. SELF RESUMPTION OF HER METHADONE CLINIC [facility] 07/22/20 AT 0930 THEY WILL CALL AND REMIND HER OF HER APPINTMENT TRANSPORTATION [facility]ILY [facility] Care vna for qd dressing changes as ordered discharge packet and discharge summary and face to face faxed over to them at
[2020-07-09 15:56] VITALS: BP 173/88; PULSE 82; RESP 13; TEMP 36.1; O2SAT 100
[2020-07-09 16:45] LABS: Glucose, Whole Blood 139 mg/dL (60-115)
[2020-08-04 12:12] LABS: HepC Viral Load <15 NOT DETECTED
[2020-08-04 12:13] LABS: HCV Log PCR <1.18 NOT DETECTED
== END 2020-07-09 16:50 | disposition home health service (06) | DRG 344 ==
LOC: HO.ED 17:36 → HO.EDOVER 07-02 00:02 → HO.S3 07-02 12:09
PROVIDERS: Emergency Medicine; Family Medicine; Internal Medicine; Internal Medicine Nephrology; Admitting Provider Internal Medicine; Emergency Provider Emergency Medicine; PCP Internal Medicine; Visit Provider Internal Medicine
DX: E11.69 Type 2 diabetes mellitus with other specified complication (principal); M86.672 Other chronic osteomyelitis, left ankle and foot; N17.0 Acute kidney failure with tubular necrosis; E11.621 Type 2 diabetes mellitus with foot ulcer; E11.22 Type 2 diabetes mellitus with diabetic chronic kidney disease; F11.20 Opioid dependence, uncomplicated; E11.52 Type 2 diabetes mellitus with diabetic peripheral angiopathy with gangrene; L03.116 Cellulitis of left lower limb; F17.210 Nicotine dependence, cigarettes, uncomplicated; N18.30 Chronic kidney disease, stage 3 unspecified; I12.9 Hypertensive chronic kidney disease with stage 1 through stage 4 chronic kidney disease, or unspecified chronic kidney disease; D63.1 Anemia in chronic kidney disease; Z91.14 Patient's other noncompliance with medication regimen; Z20.822 Contact with and (suspected) exposure to COVID-19; L97.529 Non-pressure chronic ulcer of other part of left foot with unspecified severity; Z79.899 Other long term (current) drug therapy
CPT/HCPCS: 36415; 36430; 73630; 73700; 80048; 80076; 80202; 82550; 82565; 82607; 82728; 82746; 82784; 82947; 83036; 83540; 83605; 83735; 85025; 85610; 85652; 85730; 86038; 86039; 86140; 86160; 86334; 86704; 86705; 86706; 86803; 86850; 86900; 86901; 86923; 87040; 87324; 87340; 87449; 87493; 87522; 87635; 93005; 93925; 96365; 96367; 96375; 99232; 99284; 99285; J1170; J2270; J2543; J3370; P9016

== ENCOUNTER 2020-07-21 13:11 | Outpatient (REF) | payer OTHER, SELFPAY ==
[2020-07-21 14:45] LABS: MANUAL DIFF FLAG NO
[2020-07-21 14:48] LABS: Basophils Percent Auto 0.6 % (0-2); Eosinophils Absolute Auto 0.1 X10*3/uL (0.0-0.4); Eosinophils Percent Auto 2.1 % (0-4); Hematocrit 23.8 % (37-47); Hemoglobin 7.6 g/dl (12.0-16.0); Imm Gran Abs Auto 0.04 X10*3/uL (0.00-0.03); Imm Gran Pct Auto 0.6 % (0.0-0.4); Lymphocytes Absolute Auto 1.9 X10*3/uL (1.2-4.9); Lymphocytes Percent Auto 28.5 % (20-40); Mean Corpuscular HGB Conc 31.9 g/dl (31.0-35.0); Mean Corpuscular Hemoglobin 28.4 pg (27.0-33.0); Mean Corpuscular Volume 88.8 fL (80-98); Mean Platelet Volume 11.1 fL (9.4-12.3); Monocytes Absolute Auto 0.3 X10*3/uL (0.1-1.2); Monocytes Percent Auto 4.5 % (2-11); Neutrophils Absolute Auto 4.3 X10*3/uL (2.0-8.3); Neutrophils Percent Auto 63.7 % (45-73); Platelet Count 221 X10*3/uL (160-400); Red Blood Count 2.68 X10*6/uL (4.20-5.50); Red Cell Distribution Width 14.5 % (11.0-16.0); White Blood Count 6.7 X10*3/uL (4.8-10.8)
[2020-07-21 15:11] LABS: Anion Gap 10 (12-20); Blood Urea Nitrogen 30 mg/dL (9-16); C Reactive Protein 3.84 mg/dL (< or = 0.50); Calcium 8.4 mg/dL (8.4-10.2); Carbon Dioxide 34 mmol/L (22-29); Chloride 102 mmol/L (96-108); Estimated Glomerular Filt Rate 21; Glucose Random 86 mg/dL (60-115); Potassium 4.1 mmol/L (3.3-5.1); Sodium 142 mmol/L (135-145)
[2020-07-21 15:31] LABS: Erythrocyte Sedimentation Rate > 140 MM/HR (0-20)
== END 2020-07-21 13:12 | disposition home or self-care (01) ==
LOC: HO.LAB 13:11
PROVIDERS: Referring Provider Internal Medicine; Visit Provider Family Medicine
DX: E11.621 Type 2 diabetes mellitus with foot ulcer (principal); L97.509 Non-pressure chronic ulcer of other part of unspecified foot with unspecified severity; E11.69 Type 2 diabetes mellitus with other specified complication; M86.9 Osteomyelitis, unspecified; F17.210 Nicotine dependence, cigarettes, uncomplicated; Z79.899 Other long term (current) drug therapy
CPT/HCPCS: 36415; 80048; 85025; 85652; 86140; 99212

== ENCOUNTER 2020-08-02 16:31 | Outpatient (REF) | payer OTHER, SELFPAY ==
[2020-08-02 17:53] LABS: Hemoglobin 7.4 g/dl (12.0-16.0); Mean Corpuscular HGB Conc 30.8 g/dl (31.0-35.0); Mean Corpuscular Hemoglobin 28.6 pg (27.0-33.0); Mean Corpuscular Volume 92.7 fL (80-98); Mean Platelet Volume 11.1 fL (9.4-12.3); Platelet Count 206 X10*3/uL (160-400); Red Blood Count 2.59 X10*6/uL (4.20-5.50); Red Cell Distribution Width 15.1 % (11.0-16.0); White Blood Count 5.3 X10*3/uL (4.8-10.8)
[2020-08-02 18:23] LABS: Creatinine Urine 41.34 mg/dL
[2020-08-02 18:43] LABS: Ferritin 256 ng/mL (10-250); Vitamin D 25-OH Total 14.8 ng/mL (>30)
[2020-08-02 18:46] LABS: Anion Gap 12 (12-20); Blood Urea Nitrogen 37 mg/dL (9-16); Calcium 8.8 mg/dL (8.4-10.2); Carbon Dioxide 29 mmol/L (22-29); Chloride 105 mmol/L (96-108); Estimated Glomerular Filt Rate 17; Iron 82 mcg/dL (30-160); Percent Iron Saturation 40 % (15-50); Phosphorus 5.9 mg/dL (2.7-4.5); Sodium 140 mmol/L (135-145); Total Iron Binding Capacity 207 mcg/dL (228-428); Unsaturated Iron Binding 125 ug/dL
[2020-08-02 19:03] LABS: Potassium 6.1 mmol/L (3.3-5.1)
[2020-08-04 19:48] LABS: Kappa Light Chain, Free Serum 312.9 mg/L (3.3-19.4); Kappa/Lambda Lt Ch Free Ratio 1.36 (0.26-1.65); Lambda Light Chain, Free Serum 230.8 mg/L (5.7-26.3)
[2020-08-05 12:01] LABS: Calcium (PTHI) 8.9 mg/dL (8.6-10.4); PTHI 104 pg/mL (14-64)
== END 2020-08-02 16:32 | disposition home or self-care (01) ==
LOC: HO.LAB 16:31
PROVIDERS: Visit Provider Internal Medicine Nephrology
DX: E11.22 Type 2 diabetes mellitus with diabetic chronic kidney disease (principal); I12.9 Hypertensive chronic kidney disease with stage 1 through stage 4 chronic kidney disease, or unspecified chronic kidney disease; N18.4 Chronic kidney disease, stage 4 (severe); D63.1 Anemia in chronic kidney disease; R80.1 Persistent proteinuria, unspecified
CPT/HCPCS: 36415; 80051; 82306; 82310; 82565; 82728; 83520; 83540; 83970; 84100; 84520; 85027

== ENCOUNTER 2020-08-18 11:16 | Outpatient (REF) | payer OTHER, SELFPAY | END 2020-08-18 11:17 | disposition home or self-care (01) | LOC: HO.US 11:16 | PROVIDERS: Visit Provider Internal Medicine Nephrology | DX: Z13.89 Encounter for screening for other disorder (principal) ==

== ENCOUNTER → 2020-08-24 11:46 | Outpatient (BNVA) | payer OTHER, SELFPAY | PROVIDERS: PCP Internal Medicine; Visit Provider Internal Medicine | DX: E11.621 Type 2 diabetes mellitus with foot ulcer (principal); L97.509 Non-pressure chronic ulcer of other part of unspecified foot with unspecified severity | CPT/HCPCS: 99212 ==

== ENCOUNTER → 2021-01-28 11:04 | Outpatient (BNVA) | payer OTHER, SELFPAY | PROVIDERS: Visit Provider Orthopaedic Surgery | DX: Z98.890 Other specified postprocedural states (principal) | CPT/HCPCS: 99212 ==

== ENCOUNTER 2024-06-14 10:43 | Emergency (ER) | payer OTHER, SELFPAY ==
[2024-06-14] VITALS (28 sets, daily range): BP systolic 77–177; BP diastolic 46–91; PULSE 74–118; RESP 17–48; TEMP 35.8–36.9; O2SAT 90–100; BMI 18.1
--- NOTE | 2024-06-14 | ECG_ITS ---
Test Reason : WEAKNESS Blood Pressure : */* mmHG Vent. Rate : 100 BPM Atrial Rate : 100 BPM P-R Int : 166 ms QRS Dur : 82 ms QT Int : 334 ms P-R-T Axes : 58 55 114 degrees QTcB Int : 430 ms Normal sinus rhythm Nonspecific T wave abnormality Abnormal ECG When compared with ECG of 14-Jun-2024 11:16, No significant change was found Referred By: Farhan Hein Electronically Signed By: CIARAN BOONE
--- NOTE | ~2024-06-14 | CT_ITS ---
CLINICAL HISTORY: Mental status change CT head without contrast Comparison: None Findings: No intra-axial mass, midline shift, hydrocephalus, or acute hemorrhage. No significant atrophy-like change or white matter disease. The visualized paranasal sinuses and mastoid air cells are normal. The orbits are unremarkable. There is no acute fracture. IMPRESSION: 1. No acute intracranial findings This document has been electronically signed by: Niko Cifuentes MD on 06/14/2024 12:37:12
--- NOTE | ~2024-06-14 | CT_ITS ---
CLINICAL HISTORY: Hematuria, anemia CT abdomen and pelvis without contrast Comparison: None Findings: Mild bilateral hydroureteronephrosis, greater on the right. No ureteral stone. There is air in the left renal pelvis. No air within the renal parenchyma. No nephrolithiasis; calcifications in the renal pelvises are vascular. There is a German catheter within the bladder which is decompressed. There is air in the wall of the bladder. No bladder stone. Consolidation and ground-glass opacity in each lobe at the lung bases, most prominent in the right lower lobe. Small right pleural effusion. The gallbladder measures 4.4 cm in transverse dimension. There are gallstones. No definitive gallbladder wall thickening or pericholecystic fluid. Lobular contour of the liver capsule may indicate cirrhosis. Splenomegaly, measuring 13.5 cm in craniocaudal dimension. Fluid attenuation lesion in the left adnexa measuring 6.2 x 5.3 x 5.5 cm. There is trace calcification within suspected internal septation. The other solid organs are normal. No bowel dilation. No definitive bowel wall thickening; there is underdistention of the small bowel and colon. A normal appendix is identified. No aneurysm. Severe calcified atherosclerotic disease. No lymphadenopathy. Trace pelvic ascites. There is diffuse infiltration of the subcutaneous fat which likely indicates anasarca. No acute fracture. Diffuse osseous sclerosis, likely renal osteodystrophy. 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 Air in the left renal pelvis may indicate emphysematous pyelitis or may have been introduced via the German catheter. Mild bilateral hydroureteronephrosis without a ureteral stone, likely secondary to infection and more prominent on the right. Multifocal pneumonia. Distended gallbladder with stones. No definitive gallbladder wall thickening or pericholecystic fluid. If there is clinical concern for acute cholecystitis further evaluation with right upper quadrant ultrasound may be helpful. 6.2 cm lesion in the left adnexa is likely ovarian in etiology. Evaluate further with nonemergent pelvic ultrasound. This document has been electronically signed by: Tory Sheriff MD on 06/14/2024 14:50:48
--- NOTE | ~2024-06-14 | XR_ITS ---
CLINICAL HISTORY: post-intubation 1 view chest x-ray. Comparison: CR - XR CHEST 1V - 06/14/24 18:54 EST Findings: Endotracheal tube is in satisfactory position 2.5 cm above the dary. NG tube passes into the stomach. Extensive bilateral multifocal consolidation [id number] is not appreciably changed. No definite effusion is seen. There is no pneumothorax. Cardiomediastinal silhouette is within normal limits. IMPRESSION: Endotracheal tube is in satisfactory position. This document has been electronically signed by: Marino Foote MD on 06/14/2024 22:07:24
--- NOTE | ~2024-06-14 | US_ITS ---
CLINICAL HISTORY: Rule out acute cholecystitis, abnormal ct Limited abdominal ultrasound Comparison: CT/SR - CT ABDOMEN PELVIS WO IV CON - 06/14/24 13:50 EST US - RENALS ONLY [id number] - 01/19/20 17:27 EDT Findings: The liver is upper limit of normal size, measuring 17.9 cm in length. Heterogeneous echotexture without focal lesions. Question lobular contour. Hepatopetal flow is seen within the portal vein. The common bile duct is normal in diameter, measuring 0.6 cm. There is cholelithiasis and a sludge ball. No wall thickening or pericholecystic fluid. Negative sonographic Hayes sign. The right kidney is increased in echogenicity and size, measuring 9.5 cm in length. Mild hydronephrosis. 0.6 x 0.7 x 0.6 cm simple cyst. Large stone in the head of the pancreas with calcifications and ductal dilatation, likely the sequela of chronic pancreatitis. Small right pleural effusion. Impression: Cholelithiasis without for acute cholecystitis. Question cirrhosis. Increased echogenicity of the right kidney likely indicates medical renal disease. Chronic pancreatitis. Small right pleural effusion. This document has been electronically signed by: Tory Sheriff MD on 06/14/2024 17:43:33
--- NOTE | ~2024-06-14 | CT_ITS ---
CLINICAL HISTORY: multifocal pneumonia CT chest without contrast Comparison: Chest x-ray from 06/14/2024 Findings: Severe bilateral airspace disease is multifocal. Differential considerations include multifocal pneumonia. Consolidation involves the majority of the right lower lobe. Small bilateral pleural effusions with mild additional atelectasis. No pneumothorax. The endotracheal tube terminates in the mid to upper thoracic trachea. Enteric tube courses below the diaphragm. Right IJ central line terminates near the cavoatrial junction. Degenerative changes include imaged shoulders and imaged spine. Fusion of the sternum and manubrium. Mild imaged rib deformities appear old chronic, left worse than right. Calcifications in the imaged upper abdomen are nonspecific. Findings of chronic or prior pancreatitis are considered is partially imaged in the [id number]. Vascular calcifications are also multifocal IMPRESSION: 1. Severe bilateral airspace disease concerning for multifocal pneumonia. 2. Small bilateral pleural effusions. This document has been electronically signed by: Alfredito Ag MD on 06/14/2024 23:18:58
--- NOTE | ~2024-06-14 | XR_ITS ---
CLINICAL HISTORY: DKA 1 view chest x-ray Comparison: None Findings: Portions of the exam are obscured by overlying material. There is diffuse consolidation, possible pneumonia or pulmonary edema Heart size is normal. No acute fracture. IMPRESSION: 1. Diffuse consolidation, differential considerations noted. This document has been electronically signed by: Niko Cifuentes MD on 06/14/2024 11:51:23
--- NOTE | ~2024-06-14 | XR_ITS ---
CLINICAL HISTORY: worsening oxygen requirement Chest Radiograph Comparison: CR - XR CHEST 1V - 06/14/24 11:30 EST Findings: No cardiomegaly. Normal mediastinal contours. No pneumothorax. Patchy opacity throughout the right lung, moderate to severe, greater than on the prior study. Mild amount of patchy opacity in the left lung, similar to the prior study. Small right pleural effusion. Normal upper abdomen. No acute fracture. Impression: Interval worsening of multifocal pneumonia. This document has been electronically signed by: Tory Sheriff MD on 06/14/2024 20:02:51
--- NOTE | 2024-06-14 11:04 | ECG_ITS ---
Test Reason : WEAKNESS Blood Pressure : */* mmHG Vent. Rate : 104 BPM Atrial Rate : 104 BPM P-R Int : 174 ms QRS Dur : 82 ms QT Int : 302 ms P-R-T Axes : 68 64 129 degrees QTcB Int : 397 ms Sinus tachycardia Nonspecific ST and T wave abnormality Abnormal ECG When compared with ECG of 07-Jul-2020 13:27, Nonspecific T wave abnormality, improved in Anterior leads Nonspecific T wave abnormality, worse in Lateral leads Referred By: Farhan Hein Electronically Signed By: CIARAN BOONE
[2024-06-14 11:10] LABS: Venous Blood Gas Refer to POC result
[2024-06-14 11:16] LABS: Glucose, Whole Blood 436 mg/dL (60-115)
[2024-06-14] MEDS: 0.9 % Sodium Chloride 1,000 ML 999 ML IV (11:21)
[2024-06-14 11:22] LABS: Mean Corpuscular HGB Conc 32.4 g/dl (31.0-35.0); Mean Corpuscular Hemoglobin 31.8 pg (27.0-33.0); Mean Corpuscular Volume 98.3 fL (80.0-98.0); Mean Platelet Volume 10.2 fL (9.4-12.3); Platelet Count 203 X10*3/uL (160-400); Red Blood Count 1.73 X10*6/uL (4.20-5.50); Red Cell Distribution Width 15.3 % (11.0-16.0); White Blood Count 19.2 X10*3/uL (4.8-10.8)
[2024-06-14 11:25] LABS: Hemoglobin 5.5 g/dl (12.0-16.0)
[2024-06-14 11:25] LABS: INTERNATIONAL NORM RATIO 1.3 (0.9-1.1); Prothrombin Time 15.7 SEC (10.9-12.4)
[2024-06-14 11:31] LABS: VBG HCO3 21 mmol/L (22-26); VBG pCO2 50 mmHg; VBG pH 7.22 (7.32-7.43); VBG pO2 34 mmHg
--- NOTE | 2024-06-14 11:35 | ED_ITS ---
HPI - General Adult General Chief complaint: General Medical Stated complaint: POC reading high Time Seen by Provider: 06/14/24 11:04 Source: patient, family (Spouse ([phone])) and EMS Mode of arrival: EMS Limitations: altered mental status History of Present Illness ED Provider: DR. Hein HPI narrative: 54-year-old female history of diabetes, CKD, usually go to [facility] for medical records, came in today after called the ambulance to bring her to the hospital for evaluation of generalized weakness, lethargy and change mental status. Related Data Home Medications ?Medication ?Instructions ?Recorded ?Confirmed alprazolam 1 mg tablet 1 - 2 mg PO DAILY 07/01/20 08/24/20 docusate sodium 100 mg capsule 100 mg PO DAILY 07/01/20 08/24/20 trazodone 100 mg tablet 100 - 200 mg PO BEDTIME PRN 07/01/20 08/24/20 Insomnia gabapentin 100 mg capsule 100 mg PO BEDTIME 07/02/20 08/24/20 methadone 10 mg/mL oral concentrate 47 mg PO DAILY 07/02/20 08/24/20 sennosides 8.6 mg tablet (senna) 8.6 mg PO BEDTIME 07/02/20 08/24/20 quetiapine 300 mg tablet,extended 300 mg PO DAILY 07/06/20 08/24/20 release 24 hr (Seroquel XR) Previous Rx's ?Medication ?Instructions ?Recorded amlodipine 5 mg tablet 10 mg PO DAILY #30 tabs 07/08/20 levofloxacin 750 mg tablet 750 mg PO Q48H 26 days #13 tabs 07/08/20 metoprolol succinate 50 mg 50 mg PO DAILY #30 tabs 07/08/20 tablet,extended release 24 hr metronidazole 500 mg tablet 500 mg PO Q8H 26 days #78 tabs 07/08/20 Allergies Allergy/AdvReac Type Severity Reaction Status Date / Time No Known Allergies Allergy Verified 06/14/24 11:15 [No Known Allergies*] Review of Systems 2 Review of Systems: Yes Unobtainable due to mental status PMFSH Past Medical History Medical History Diabetic foot ulcer Hepatitis C virus infection cured after antiviral drug therapy CKD (chronic kidney disease) stage 3, GFR 30-59 ml/min Anemia Osteomyelitis CKD (chronic kidney disease) Asthma HTN (hypertension) Diabetes Surgical History History of ankle surgery Family History Family History Father No problems noted. Mother No problems noted. Social History Social History Household Members: Spouse Housing: Apartment Do you presently have visiting nurse or other home services: Yes Alcohol intake: never Comment: pt refusing bed alarm Cigarettes Per Day: 5 Smoked in Last 30 Days: Yes Second Hand Smoke Exposure: Yes Use of substances other than those prescribed or required for medical reasons: No Substance Use Type: Heroin Advance Directives: Yes Advance Directives on File: Yes Advance Directives Date on File: 07/02/20 service: No Current occupational status: disabled Current occupation: lt handed Physical Exam ED Vital Signs: Vital Signs - 24 hr 06/14/24 11:11 06/14/24 11:26 06/14/24 12:17 Temperature 98.2 F 98.2 F 96.8 F Pulse Rate 105 H 105 H 97 Respiratory Rate 18 18 20 Blood Pressure 128/47 L 128/47 L 143/62 H Pulse Oximetry 90 L 90 L 98 Oxygen Delivery Method Oxymask Oxymask Non-Rebreather Mask Oxygen Flow Rate 4 06/14/24 12:52 06/14/24 13:13 06/14/24 14:00 Temperature 96.6 F L 96.4 F L 96.4 F L Pulse Rate 93 93 94 Respiratory Rate 24 H 24 H 18 Blood Pressure 137/62 143/64 H 132/63 Pulse Oximetry 96 Oxygen Delivery Method Oxymask Oxygen Flow Rate 12 BMI result Body Mass Index 18.1 Vital signs have been reviewed and appear to be correct. Blood pressure elevated. Heart rate normal. Respiratory rate normal. Temperature normal. Oxygen saturation normal. Appearance: Pale, Lethargic, alert, oriented x1 to person No acute distress. Head: Normal external exam. Normocephalic. Atraumatic. No Carr signs noted. No raccoon eyes noted Eyes: PERRLA. EOMI. Conjunctiva and sclera normal. Eyelids normal. ENT: TM's Normal. Pharynx normal. Uvula midline. Moist mucous membranes. No trismus noted. No drooling noted. No muffled voice noted. Neck: Normal inspection. Neck supple. FROM. No adenopathy. Thyroid Normal. No meningeal signs. No neck mass noted. CVS: Normal heart rate and rhythm. Heart sound normal. No murmurs noted. Pulses normal throughout. Respiratory: No respiratory distress. Painless inspiration. Breath sounds normal. No wheezes/rales/rhonchi noted. Chest nontender. No accessory muscle usage noted or decreased air movement noted. Abdomen: Soft and nontender. Bowel sounds normal in all 4 quadrants. No distention noted. No organomegaly noted. No visible injury noted. Back: No CVA tenderness. Full range of motion noted. Skin: Skin warm and dry. Normal skin color. Normal skin turgor. No rashes/lesions/lacerations noted. Extremities: No lower extremity edema. Extremities exhibit normal range of motion. Extremities nontender. Neuro: Cranial nerve exam: II-XII are grossly intact No motor deficit. No sensory deficit. Reflexes normal. Course Reevaluation(s) Reevaluation #1: Sepsis and infection is suspected now secondary to pneumonia will administer antibiotic and IV fluid. Time: 14:07 Reevaluation #2: A 54-year-old female came in for being lethargic with generalized weakness patient had a multiple abnormal findings. 1. Piter hematuria with a anemia with low H&H require blood transfusion patient will receive 2 units of blood transfusion, patient was able to consent for the transfusion. 2. DKA receiving IV fluids and insulin drip. 3. Multilobar pneumonia received ceftriaxone and doxycycline. 4. Hypokalemia will replete orally and IV. No ICU bed is available, Case discussed with [facility] for transfer where patient's records and family requesting to go back to [facility] patient was accepted by . Patient will stay in our ED until the bed is ready at [facility] so patient signed out to Dr. Whittaker. Time: 15:47 Medications Administered Discontinued Medications Generic Name Dose Route Start Last Admin Trade Name Freq PRN Reason Stop Dose Admin Ceftriaxone Sodium 1 gm 06/14/24 14:06 06/14/24 14:15 Ceftriaxone Sodium 1 Gm Vial IVPUSH 06/14/24 14:07 1 gm ONCE ONE Administration Sodium Chloride 1,000 mls @ 999 mls/hr 06/14/24 11:04 06/14/24 12:59 Ns IV 06/14/24 12:04 Infused .Q1H1M ONE Infusion Potassium Chloride 10 meq in 100 mls @ 100 mls/hr 06/14/24 12:31 06/14/24 13:49 Potassium Chloride/H20 IV 06/14/24 13:30 Infused ONCE ONE Infusion Doxycycline Hyclate 100 mg/ 250 mls @ 166.67 mls/hr 06/14/24 14:06 06/14/24 14:17 Sodium Chloride IV 06/14/24 15:35 166.67 mls/hr ONCE ONE Administration Insulin Human Regular 5 unit 06/14/24 13:25 06/14/24 13:45 Insulin Regular, Human 100 Unit/Ml 10 Ml Vial IVPUSH 06/14/24 13:26 5 unit ONCE ONE Administration Potassium Chloride 40 meq 06/14/24 12:31 06/14/24 12:47 Potassium Chloride Packet 20 Meq Packet PO 06/14/24 12:32 40 meq ONCE ONE Administration Medical Decision Making Differential Diagnosis Differential Diagnoses: The differential diagnosis associated with the presentation includes (Pneumonia, pneumothorax, pleural effusion, DKA, dehydration, acute on chronic kidney injury, electrolyte derangement, severe anemia.) Admission/Observation Consideration of admission/observation: Escalation of care including admission/observation considered Consult Healthcare Provider Management of the patient was discussed with: [employer] (Dr. Rojo) Lab Data MDM Lab Attestation statement: I reviewed the patient's lab results. 06/14/24 11:12 06/14/24 14:46 Labs: Lab Results 06/14/24 06/14/24 06/14/24 Range/Units 11:05 11:08 11:10 WBC (4.8-10.8) X10*3/uL RBC (4.20-5.50) X10*6/uL Hgb (12.0-16.0) g/dl Hct (37.0-47.0) % MCV (80.0-98.0) fL MCH (27.0-33.0) pg MCHC (31.0-35.0) g/dl RDW (11.0-16.0) % Plt Count (160-400) X10*3/uL MPV (9.4-12.3) fL Immature Gran % (Auto) Neut % (Auto) Lymph % (Auto) Fallon % (Auto) Eos % (Auto) Baso % (Auto) Lymph # (Auto) Fallon # (Auto) Eos # (Auto) Baso # (Auto) Abs Immat Gran (auto) Absolute Neuts (auto) Absolute Nucleated RBC (0.0-0.012) X10*3/uL Nucleated RBC % (auto) (0.0-0.2) /100WBC Neutrophils % (Manual) (45-73) % Band Neutrophils % (3-5) % Lymphocytes % (Manual) (20-40) % Monocytes % (Manual) (2-11) % Eosinophils % (Manual) (0-4) % Metamyelocytes % % Abs Neuts (Manual) (2.0-8.3) X10*3/uL Lymphocytes # (Manual) (1.2-4.9) X10*3/uL Monocytes # (Manual) (0.1-1.2) X10*3/uL Eosinophils # (Manual) (0.0-0.4) X10*3/uL Metamyelocytes # X10*3/uL Platelet Estimate (NORMAL) Plt Morphology Comment RBC Morphology Polychromasia /OIF Hypochromasia /OIF Schistocytes /OIF PT 15.7 H (10.9-12.4) SEC INR 1.3 H (0.9-1.1) VBG pH 7.22 L (7.32-7.43) VBG pCO2 50 mmHg VBG pO2 34 mmHg VBG HCO3 21 L (22-26) mmol/L VBG O2 Saturation TNP VBG Base Excess -6.0 mmol/L Sodium 138 (135-145) mmol/L Potassium 2.6 L* (3.3-5.1) mmol/L Chloride 112 H (96-108) mmol/L Carbon Dioxide 18 L (22-29) mmol/L Anion Gap 11 L (12-20) BUN 49 H (9-16) mg/dL Creatinine 4.79 H* (0.5-1.4) mg/dL Estim Creat Clear Calc 8.8 Estimated GFR 9 POC Glucose 436 H* (60-115) mg/dL Random Glucose 504 H* (60-115) mg/dL Lactic Acid 1.9 (0.5-2.0) mmol/L Calcium 7.4 L D (8.4-10.2) mg/dL Total Bilirubin 0.2 (0.0-1.0) mg/dL Direct Bilirubin < 0.2 (0.0-0.5) mg/dL AST 21 (5-31) U/L ALT < 6 (0-31) U/L Alkaline Phosphatase 126 H (39-117) U/L Troponin I High Sens 10.0 (<3.5-17.0) ng/L B-Natriuretic Peptide 561 H (<100) pg/mL Total Protein 6.9 (6.5-8.0) g/dL Albumin 2.0 L (3.5-5.0) g/dL Lipase 6 L (8-78) U/L Urine Color Urine Appearance Urine pH (5.0-9.0) Ur Specific Udell (1.005-1.025) Urine Protein (Neg-Trace) mg/dL Urine Glucose (UA) (Negative) mg/dL Urine Ketones (Negative) mg/dL Urine Blood (Negative) Urine Nitrite (Negative) Ur Leukocyte Esterase (Negative) Urine RBC (0-2) /HPF Urine WBC (0-5) /HPF Ur Squamous Epith Cells (0-2) /HPF Urine Bacteria (None Seen) Hyaline Casts (0-2) /LPF Granular Casts Urine Yeast Stool Occult Blood (NEGATIVE) Influenza Type A (PCR) (Negative) Influenza Type B (PCR) (Negative) RSV RNA Qual (PCR) (Negative) SARS-CoV-2 RNA (RT-PCR) (Negative) Blood Type Antibody Screen Crossmatch 06/14/24 06/14/24 06/14/24 Range/Units 11:11 11:12 11:35 WBC 19.2 H (4.8-10.8) X10*3/uL RBC 1.73 L (4.20-5.50) X10*6/uL Hgb 5.5 L* (12.0-16.0) g/dl Hct 17.0 L* (37.0-47.0) % MCV 98.3 H (80.0-98.0) fL MCH 31.8 (27.0-33.0) pg MCHC 32.4 (31.0-35.0) g/dl RDW 15.3 (11.0-16.0) % Plt Count 203 (160-400) X10*3/uL MPV 10.2 (9.4-12.3) fL Immature Gran % (Auto) Cancelled Neut % (Auto) Cancelled Lymph % (Auto) Cancelled Fallon % (Auto) Cancelled Eos % (Auto) Cancelled Baso % (Auto) Cancelled Lymph # (Auto) Cancelled Fallon # (Auto) Cancelled Eos # (Auto) Cancelled Baso # (Auto) Cancelled Abs Immat Gran (auto) Cancelled Absolute Neuts (auto) Cancelled Absolute Nucleated RBC 0.000 (0.0-0.012) X10*3/uL Nucleated RBC % (auto) 0.0 (0.0-0.2) /100WBC Neutrophils % (Manual) 89 H (45-73) % Band Neutrophils % 7 H (3-5) % Lymphocytes % (Manual) 1 L (20-40) % Monocytes % (Manual) 1 L (2-11) % Eosinophils % (Manual) 1 (0-4) % Metamyelocytes % 1 % Abs Neuts (Manual) 18.4 H (2.0-8.3) X10*3/uL Lymphocytes # (Manual) 0.2 L (1.2-4.9) X10*3/uL Monocytes # (Manual) 0.2 (0.1-1.2) X10*3/uL Eosinophils # (Manual) 0.2 (0.0-0.4) X10*3/uL Metamyelocytes # 0.2 X10*3/uL Platelet Estimate NORMAL (NORMAL) Plt Morphology Comment NORMAL RBC Morphology NOTED Polychromasia 1+ (0-2) /OIF Hypochromasia 1+ (5-14) /OIF Schistocytes 1+ (0-2) /OIF PT (10.9-12.4) SEC INR (0.9-1.1) VBG pH (7.32-7.43) VBG pCO2 mmHg VBG pO2 mmHg VBG HCO3 (22-26) mmol/L VBG O2 Saturation VBG Base Excess mmol/L Sodium (135-145) mmol/L Potassium (3.3-5.1) mmol/L Chloride (96-108) mmol/L Carbon Dioxide (22-29) mmol/L Anion Gap (12-20) BUN (9-16) mg/dL Creatinine (0.5-1.4) mg/dL Estim Creat Clear Calc Estimated GFR POC Glucose (60-115) mg/dL Random Glucose (60-115) mg/dL Lactic Acid (0.5-2.0) mmol/L Calcium (8.4-10.2) mg/dL Total Bilirubin (0.0-1.0) mg/dL Direct Bilirubin (0.0-0.5) mg/dL AST (5-31) U/L ALT (0-31) U/L Alkaline Phosphatase (39-117) U/L Troponin I High Sens (<3.5-17.0) ng/L B-Natriuretic Peptide (<100) pg/mL Total Protein (6.5-8.0) g/dL Albumin (3.5-5.0) g/dL Lipase (8-78) U/L Urine Color Urine Appearance Urine pH (5.0-9.0) Ur Specific Udell (1.005-1.025) Urine Protein (Neg-Trace) mg/dL Urine Glucose (UA) (Negative) mg/dL Urine Ketones (Negative) mg/dL Urine Blood (Negative) Urine Nitrite (Negative) Ur Leukocyte Esterase (Negative) Urine RBC (0-2) /HPF Urine WBC (0-5) /HPF Ur Squamous Epith Cells (0-2) /HPF Urine Bacteria (None Seen) Hyaline Casts (0-2) /LPF Granular Casts Urine Yeast Stool Occult Blood (NEGATIVE) Influenza Type A (PCR) NEGATIVE (Negative) Influenza Type B (PCR) NEGATIVE (Negative) RSV RNA Qual (PCR) POSITIVE A (Negative) SARS-CoV-2 RNA (RT-PCR) NEGATIVE (Negative) Blood Type A Negative Antibody Screen NEGATIVE Crossmatch See Detail 06/14/24 06/14/24 06/14/24 Range/Units 11:48 14:38 14:46 WBC (4.8-10.8) X10*3/uL RBC (4.20-5.50) X10*6/uL Hgb (12.0-16.0) g/dl Hct (37.0-47.0) % MCV (80.0-98.0) fL MCH (27.0-33.0) pg MCHC (31.0-35.0) g/dl RDW (11.0-16.0) % Plt Count (160-400) X10*3/uL MPV (9.4-12.3) fL Immature Gran % (Auto) Neut % (Auto) Lymph % (Auto) Fallon % (Auto) Eos % (Auto) Baso % (Auto) Lymph # (Auto) Fallon # (Auto) Eos # (Auto) Baso # (Auto) Abs Immat Gran (auto) Absolute Neuts (auto) Absolute Nucleated RBC (0.0-0.012) X10*3/uL Nucleated RBC % (auto) (0.0-0.2) /100WBC Neutrophils % (Manual) (45-73) % Band Neutrophils % (3-5) % Lymphocytes % (Manual) (20-40) % Monocytes % (Manual) (2-11) % Eosinophils % (Manual) (0-4) % Metamyelocytes % % Abs Neuts (Manual) (2.0-8.3) X10*3/uL Lymphocytes # (Manual) (1.2-4.9) X10*3/uL Monocytes # (Manual) (0.1-1.2) X10*3/uL Eosinophils # (Manual) (0.0-0.4) X10*3/uL Metamyelocytes # X10*3/uL Platelet Estimate (NORMAL) Plt Morphology Comment RBC Morphology Polychromasia /OIF Hypochromasia /OIF Schistocytes /OIF PT (10.9-12.4) SEC INR (0.9-1.1) VBG pH (7.32-7.43) VBG pCO2 mmHg VBG pO2 mmHg VBG HCO3 (22-26) mmol/L VBG O2 Saturation VBG Base Excess mmol/L Sodium 140 (135-145) mmol/L Potassium 2.6 L* (3.3-5.1) mmol/L Chloride 116 H (96-108) mmol/L Carbon Dioxide 16 L (22-29) mmol/L Anion Gap 11 L (12-20) BUN 50 H (9-16) mg/dL Creatinine 4.39 H* (0.5-1.4) mg/dL Estim Creat Clear Calc 9.7 Estimated GFR 10 POC Glucose 341 H (60-115) mg/dL Random Glucose 403 H* (60-115) mg/dL Lactic Acid (0.5-2.0) mmol/L Calcium 7.1 L (8.4-10.2) mg/dL Total Bilirubin (0.0-1.0) mg/dL Direct Bilirubin (0.0-0.5) mg/dL AST (5-31) U/L ALT (0-31) U/L Alkaline Phosphatase (39-117) U/L Troponin I High Sens (<3.5-17.0) ng/L B-Natriuretic Peptide (<100) pg/mL Total Protein (6.5-8.0) g/dL Albumin (3.5-5.0) g/dL Lipase (8-78) U/L Urine Color BROWN Urine Appearance Cloudy Urine pH 6.5 (5.0-9.0) Ur Specific Udell 1.025 (1.005-1.025) Urine Protein 300 (3+) H (Neg-Trace) mg/dL Urine Glucose (UA) 100 H (Negative) mg/dL Urine Ketones 15 (Negative) mg/dL Urine Blood Large (3+) H (Negative) Urine Nitrite Positive H (Negative) Ur Leukocyte Esterase Moderate (2+) H (Negative) Urine RBC >20 H (0-2) /HPF Urine WBC >50 H (0-5) /HPF Ur Squamous Epith Cells 11-20 (0-2) /HPF Urine Bacteria 4+ (None Seen) Hyaline Casts 6-10 (0-2) /LPF Granular Casts Present Urine Yeast Present Stool Occult Blood NEGATIVE (NEGATIVE) Influenza Type A (PCR) (Negative) Influenza Type B (PCR) (Negative) RSV RNA Qual (PCR) (Negative) SARS-CoV-2 RNA (RT-PCR) (Negative) Blood Type Antibody Screen Crossmatch 06/14/24 Range/Units 14:49 WBC (4.8-10.8) X10*3/uL RBC (4.20-5.50) X10*6/uL Hgb (12.0-16.0) g/dl Hct (37.0-47.0) % MCV (80.0-98.0) fL MCH (27.0-33.0) pg MCHC (31.0-35.0) g/dl RDW (11.0-16.0) % Plt Count (160-400) X10*3/uL MPV (9.4-12.3) fL Immature Gran % (Auto) Neut % (Auto) Lymph % (Auto) Fallon % (Auto) Eos % (Auto) Baso % (Auto) Lymph # (Auto) Fallon # (Auto) Eos # (Auto) Baso # (Auto) Abs Immat Gran (auto) Absolute Neuts (auto) Absolute Nucleated RBC (0.0-0.012) X10*3/uL Nucleated RBC % (auto) (0.0-0.2) /100WBC Neutrophils % (Manual) (45-73) % Band Neutrophils % (3-5) % Lymphocytes % (Manual) (20-40) % Monocytes % (Manual) (2-11) % Eosinophils % (Manual) (0-4) % Metamyelocytes % % Abs Neuts (Manual) (2.0-8.3) X10*3/uL Lymphocytes # (Manual) (1.2-4.9) X10*3/uL Monocytes # (Manual) (0.1-1.2) X10*3/uL Eosinophils # (Manual) (0.0-0.4) X10*3/uL Metamyelocytes # X10*3/uL Platelet Estimate (NORMAL) Plt Morphology Comment RBC Morphology Polychromasia /OIF Hypochromasia /OIF Schistocytes /OIF PT (10.9-12.4) SEC INR (0.9-1.1) VBG pH 7.24 L (7.32-7.43) VBG pCO2 39 mmHg VBG pO2 78 mmHg VBG HCO3 17 L (22-26) mmol/L VBG O2 Saturation 95.0 VBG Base Excess -9.0 mmol/L Sodium (135-145) mmol/L Potassium (3.3-5.1) mmol/L Chloride (96-108) mmol/L Carbon Dioxide (22-29) mmol/L Anion Gap (12-20) BUN (9-16) mg/dL Creatinine (0.5-1.4) mg/dL Estim Creat Clear Calc Estimated GFR POC Glucose (60-115) mg/dL Random Glucose (60-115) mg/dL Lactic Acid (0.5-2.0) mmol/L Calcium (8.4-10.2) mg/dL Total Bilirubin (0.0-1.0) mg/dL Direct Bilirubin (0.0-0.5) mg/dL AST (5-31) U/L ALT (0-31) U/L Alkaline Phosphatase (39-117) U/L Troponin I High Sens (<3.5-17.0) ng/L B-Natriuretic Peptide (<100) pg/mL Total Protein (6.5-8.0) g/dL Albumin (3.5-5.0) g/dL Lipase (8-78) U/L Urine Color Urine Appearance Urine pH (5.0-9.0) Ur Specific Udell (1.005-1.025) Urine Protein (Neg-Trace) mg/dL Urine Glucose (UA) (Negative) mg/dL Urine Ketones (Negative) mg/dL Urine Blood (Negative) Urine Nitrite (Negative) Ur Leukocyte Esterase (Negative) Urine RBC (0-2) /HPF Urine WBC (0-5) /HPF Ur Squamous Epith Cells (0-2) /HPF Urine Bacteria (None Seen) Hyaline Casts (0-2) /LPF Granular Casts Urine Yeast Stool Occult Blood (NEGATIVE) Influenza Type A (PCR) (Negative) Influenza Type B (PCR) (Negative) RSV RNA Qual (PCR) (Negative) SARS-CoV-2 RNA (RT-PCR) (Negative) Blood Type Antibody Screen Crossmatch Independent Interpretation I performed an independent interpretation of an: Plain X-Ray (Chest: Multilobar pneumonia) and CT Scan (Head/abdomen pelvis:Air in the wall of 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 Air in the left renal pelvis may indicate emphysematous pyelitis or may have been introduced via the German catheter. Mild bilateral hydroureteronephrosis without a ureteral stone, likely secondary to infe) Radiology Impression Discussion of test interpretation with radiology: I have reviewed the radiologist's reading. Discharge Plan Discharge Clinical Impression: Anemia, Pneumonia, DKA (diabetic ketoacidosis), Hypokalemia Patient Disposition: [facility] Transfer Details: To [facility] Prescriptions: No Action alprazolam 1 mg Tablet 1 - 2 mg PO DAILY trazodone 100 mg Tablet 100 - 200 mg PO BEDTIME PRN (Reason: Insomnia) docusate sodium 100 mg Capsule 100 mg PO DAILY gabapentin 100 mg Capsule 100 mg PO BEDTIME methadone 10 mg/mL Concentrate 47 mg PO DAILY sennosides [senna] 8.6 mg Tablet 8.6 mg PO BEDTIME quetiapine [Seroquel XR] 300 mg Tablet Extended Release 24 Hr 300 mg PO DAILY metoprolol succinate 50 mg Tablet Extended Release 24 Hr 50 mg PO DAILY Qty: 30 0RF Protocol: Hold for SBP/HR < HOLD for SBP < : 90 HOLD for HR < : 60 metronidazole 500 mg Tablet 500 mg PO Q8H 26 Days Qty: 78 0RF amlodipine 5 mg Tablet 10 mg PO DAILY Qty: 30 0RF Protocol: Hold for SBP< HOLD for SBP < : 90 levofloxacin 750 mg Tablet 750 mg PO Q48H 26 Days Qty: 13 0RF Referrals: Tamanna Roland [Primary Care Provider] - Print Language: Taiwanese
[2024-06-14 11:37] LABS: Lactic Acid 1.9 mmol/L (0.5-2.0)
[2024-06-14 11:48] LABS: Alanine Aminotransferase < 6 U/L (0-31); Alkaline Phosphatase 126 U/L (39-117); Anion Gap 11 (12-20); Aspartate Amino Transferase 21 U/L (5-31); Bilirubin Direct < 0.2 mg/dL (0.0-0.5); Bilirubin Total 0.2 mg/dL (0.0-1.0); Blood Urea Nitrogen 49 mg/dL (9-16); Calcium 7.4 mg/dL (8.4-10.2); Carbon Dioxide 18 mmol/L (22-29); Chloride 112 mmol/L (96-108); Creatinine Clr Calc Pharmacy 8.8; Estimated Glomerular Filt Rate 9; Glucose Random 504 mg/dL (60-115); Lipase 6 U/L (8-78); Potassium 2.6 mmol/L (3.3-5.1); Sodium 138 mmol/L (135-145); Total Protein 6.9 g/dL (6.5-8.0)
[2024-06-14 11:53] LABS: Band Neutrophils Percent 7 % (3-5); Eosinophils Absolute Manual 0.2 X10*3/uL (0.0-0.4); Eosinophils Percent Manual 1 % (0-4); Lymphocytes Absolute Manual 0.2 X10*3/uL (1.2-4.9); Lymphocytes Percent Manual 1 % (20-40); Metamyelocytes Absolute 0.2 X10*3/uL; Metamyelocytes Percent 1 %; Monocytes Absolute Manual 0.2 X10*3/uL (0.1-1.2); Monocytes Percent Manual 1 % (2-11); Neutrophils Absolute Manual 18.4 X10*3/uL (2.0-8.3); Neutrophils Percent Manual 89 % (45-73)
--- NOTE | 2024-06-14 11:54 | PC.NURSE ---
Pt BIBA from home for hyperglycemia, confusion and labored breathing. Upon arrival pt responsive to verbal stimuli, opens eyes, unable to verbalize complaint. Currently pt able to verbally communicate, able to make needs know. Rectal temp obtained 98.2. 20g IVs started bilateral AC. Temp sensing cedeño placed. Labs obtained, UA sent. IV fluids infusing per MAR. 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
[2024-06-14 11:56] LABS: OBS Int Ctl Valid YES; OBS1 NEGATIVE (NEGATIVE)
[2024-06-14 11:56] LABS: RBC Morphology NOTED
[2024-06-14 11:57] LABS: Hypochromasia 1+ (5-14) /OIF; Platelet Estimate NORMAL (NORMAL); Platelet Morphology Comment NORMAL; Polychromasia 1+ (0-2) /OIF; Schistocytes 1+ (0-2) /OIF
[2024-06-14 12:00] LABS: Appearance Urine Cloudy; Color Urine BROWN; Glucose Urine UA 100 mg/dL (Negative); Leukocyte Esterase Urine Moderate (2+) (Negative); Nitrite Urine Positive (Negative); PH 6.5 (5.0-9.0); Specific Gravity - Urine 1.025 (1.005-1.025); UMIC TRIGGER UACC YES; Urine Blood Large (3+) (Negative); Urine Ketones 15 mg/dL (Negative); Urine Protein 300 (3+) mg/dL (Neg-Trace)
[2024-06-14 12:01] LABS: Influenza A PCR NEGATIVE (Negative); Influenza B PCR NEGATIVE (Negative); Resp Syncy Virus RNA Qual PCR POSITIVE (Negative); SARS COV2 PCR INHOUSE NEGATIVE (Negative)
[2024-06-14 12:04] LABS: B Type Natriuretic Peptide 561 pg/mL (<100)
--- NOTE | 2024-06-14 12:13 | PC.NURSE ---
German output draining dark red urine, no clots present, 600mL. Prior to CT scan, O2 sat 93 on 6L oxymask, returned from CT hypoxic O2 84%, non-rebreather placed at 15L O2 sat 98%.
--- NOTE | 2024-06-14 12:18 | PC.NURSE ---
Pt taking off non-rebreather, replaced with oxy-mask at 12L, O2 sat 93%.
[2024-06-14 12:26] LABS: Bacteria Urine 4+ (None Seen); Granular Casts Urine Present; RBC Urine >20 /HPF (0-2); UACC Culture Trigger YES; WBC Urine >50 /HPF (0-5)
[2024-06-14] MEDS: Potassium Chloride Packet 20 MEQ PACKET 40 MEQ PO (12:47)
[2024-06-14] MEDS: Potassium Chloride/H20 10 MEQ/100 ML PIGGYBACK 100 MEQ IV ×2 (12:47→19:43)
--- NOTE | 2024-06-14 13:03 | PC.NURSE ---
Addendum entered by Rosie Dumont RN 06/14/24 13:12: Pt unable to maintain O2 sat at 7L on oxymask dipping to 87-89%, O2 increased to 11L, sating 93%. Original Note: O2 titrated to 7L on oxy-mask, sating 94%.
[2024-06-14] MEDS: Insulin Regular, Human 100 UNIT/ML 10 ML VIAL IVPUSH (13:45)
[2024-06-14] MEDS: cefTRIAXone sodium 1 GM VIAL IVPUSH (14:15)
[2024-06-14] MEDS: Doxycycline Hyclate 100 MG in 0.9 % Sodium Chloride 250 ML 166.67 MG IV (14:17)
--- NOTE | 2024-06-14 14:26 | PC.NURSE ---
Alet and responsive, reports feeling better. Blood transfusing per order
[2024-06-14 14:49] LABS: Glucose, Whole Blood 341 mg/dL (60-115)
--- NOTE | 2024-06-14 14:54 | PC.NURSE ---
MD Simba aware of repeat BS of 341.
[2024-06-14 14:55] LABS: VBG HCO3 17 mmol/L (22-26); VBG pCO2 39 mmHg; VBG pH 7.24 (7.32-7.43); VBG pO2 78 mmHg
[2024-06-14 15:00] LABS: Venous Blood Gas Refer to POC result
[2024-06-14 15:19] LABS: Anion Gap 11 (12-20); Blood Urea Nitrogen 50 mg/dL (9-16); Calcium 7.1 mg/dL (8.4-10.2); Carbon Dioxide 16 mmol/L (22-29); Chloride 116 mmol/L (96-108); Creatinine Clr Calc Pharmacy 9.7; Estimated Glomerular Filt Rate 10; Glucose Random 403 mg/dL (60-115); Potassium 2.6 mmol/L (3.3-5.1); Sodium 140 mmol/L (135-145)
--- NOTE | 2024-06-14 15:54 | PC.NURSE ---
Pt c/o of right sided chest pain, Simba aware. EKG ordered.
[2024-06-14] MEDS: Dextrose 10 % 250 ML 750 ML IV (15:58)
--- NOTE | 2024-06-14 16:08 | PC.NURSE ---
MD Simba aware of BS of 297, per MD give 250mL of D10 then Insulin drip.
[2024-06-14 16:17] LABS: Amphetamine Screen Urine Not Detected (Not Detect); Barbiturates, Urine Not Detected (Not Detect); Benzodiazepines Screen Urine POSITIVE (Not Detect); Buprenorphine Scr Not Detected (Not Detect); Cannabinoid Screen Urine Not Detected (Not Detect); Cocaine Screen Urine Not Detected (Not Detect); Fentanyl, urine Not Detected (Not Detect); Methadone Screen, Urine Positive (Not Detect); Opiate Screen Urine Not Detected (Not Detect); Oxycodone Screen Urine Not Detected (Not Detect); Phencyclidine Screen Urine Not Detected (Not Detect)
[2024-06-14] MEDS: Insulin Regular/NS 100 UNIT/100 ML PLAST..BAG 6 UNIT IVCONT (16:19)
[2024-06-14 16:40] LABS: Glucose, Whole Blood 297 mg/dL (60-115)
[2024-06-14 17:20] LABS: Glucose, Whole Blood 333 mg/dL (60-115)
--- NOTE | 2024-06-14 17:30 | PC.NURSE ---
Provider notified of bs of 333. verbal order given to keep rate at 6 units per hour and not to increase rate per protocol.
--- NOTE | 2024-06-14 18:20 | PC.NURSE ---
Pt had taken oxymask off and on floor, sating 86%, oxymask replaced at 15L, sat increased to 90% but drifting to 89%. Oxymask removed and non-rebreather placed at 15L, O2 sat increased to 97%.
--- NOTE | 2024-06-14 18:43 | PC.NURSE ---
MD Alfredo aware of tachycardia and increase need for O2MD in to assess pt.
[2024-06-14] MEDS: Lactated Ringers 1,000 ML 999 ML IV (18:44)
[2024-06-14 18:50] LABS: C Reactive Protein 40.77 mg/dL (< or = 0.50)
[2024-06-14 18:53] LABS: Glucose, Whole Blood 269 mg/dL (60-115)
--- NOTE | 2024-06-14 19:21 | MHC.EDTECH ---
Face sheet faxed @[phone]
--- NOTE | 2024-06-14 19:29 | MHC.EDTECH ---
This pct assumed care of Patient at 1900 ,vitals taken ,Patient was change and reposition in bed ,blood sugar check ,RN Maxine is aware of Pt poc result .
[2024-06-14] MEDS: Piperacillin Sodium/Tazobactam 4.5 GM in 0.9 % Sodium Chloride 100 ML IV (19:39)
[2024-06-14] MEDS: Linezolid/D5W 600 MG/300 ML PIGGYBACK 300 MG IV (19:52)
[2024-06-14] MEDS: Ketamine HCl/NS 50 MG/5 ML SYRINGE 70 MG IVPUSH (20:16)
[2024-06-14] MEDS: Succinylcholine Chloride 100 MG/5 ML SYRINGE 60 MG IVPUSH (20:22)
[2024-06-14] MEDS: fentaNYL citrate/NS 1,000 MCG/100 ML PLAST..BAG 2.5 MCG IVCONT (20:49)
[2024-06-14] MEDS: Midazolam HCl/NS 50 MG/50 ML PLAST..BAG IVCONT (20:53)
--- NOTE | 2024-06-14 21:00 | PC.NURSE ---
Late entry: pt became increasingly agitated and disoriented, repeatedly pulling off their oxygen mask. redirections unsuccessful, and pt reporting that she feels like she is suffocating and not getting oxygen. Provider notified, and RT called to bedside. High-flow oxygen ordered by Dr. Fuentes and was initiated; however, pt continued to remove the high-flow mask, stating they wanted to be left alone and attempting to get out of the bed. PT remained uncooperative and disoriented, with oxygen saturation dropping to 76%. Provider made decision to intubate pt due to dropping oxygen sats and pt disorientation . ketamine was administered at 2018 with vitals of SpO2 79%, rrr 22, and hr 124. Succinylcholine given at 2021, vitals- SpO2-79%, hr 115, and rr 24. The patient was successfully intubated at 2023 with a 7.5 ET tube secured at 24 cm at the lip. + color change and breath sounds noted,. Post-intubation, oxygen saturation improved to 91%, rr 13, hr 115, and bp 104/51. At 2027, an OG tube was placed by Dr. Whittaker without difficulty. Propofol was ordered for sedation, but due to the patient?s soft blood pressures, the provider opted to initiate Fentanyl and Versed drips instead. Fentanyl drip was started at 25 mcg/hr per protocol, and Versed drip was initiated at 2mg/h as ordered both infusing as of 2048. Patient remains sedated, intubated, and on ventilatory support.
[2024-06-14 21:28] LABS: Glucose, Whole Blood 221 mg/dL (60-115)
[2024-06-14 21:28] LABS: Glucose, Whole Blood 183 mg/dL (60-115)
--- NOTE | 2024-06-14 22:40 | PC.NURSE ---
pt off to ct with RT and tw
[2024-06-14 23:13] LABS: Glucose, Whole Blood 144 mg/dL (60-115)
[2024-06-14 23:13] LABS: Glucose, Whole Blood 149 mg/dL (60-115)
[2024-06-14 23:44] LABS: Hematocrit 34.9 % (37.0-47.0); Hemoglobin 11.7 g/dl (12.0-16.0); Mean Corpuscular HGB Conc 33.5 g/dl (31.0-35.0); Mean Corpuscular Hemoglobin 31.1 pg (27.0-33.0); Mean Corpuscular Volume 92.8 fL (80.0-98.0); Mean Platelet Volume 9.8 fL (9.4-12.3); NRBC Pct Auto 0.2 /100WBC (0.0-0.2); Platelet Count 182 X10*3/uL (160-400); Red Blood Count 3.76 X10*6/uL (4.20-5.50); Red Cell Distribution Width 15.6 % (11.0-16.0); White Blood Count 16.8 X10*3/uL (4.8-10.8)
[2024-06-15 00:05] LABS: Anion Gap 11 (12-20); Blood Urea Nitrogen 43 mg/dL (9-16); Calcium 7.3 mg/dL (8.4-10.2); Carbon Dioxide 15 mmol/L (22-29); Chloride 118 mmol/L (96-108); Creatinine Clr Calc Pharmacy 10.7; Estimated Glomerular Filt Rate 12; Glucose Random 173 mg/dL (60-115); Magnesium 1.2 mg/dL (1.6-2.6); Potassium 2.8 mmol/L (3.3-5.1); Sodium 141 mmol/L (135-145)
[2024-06-15] MEDS: Potassium Chloride/H20 40 MEQ/100 ML PIGGYBACK 100 MEQ IV (00:10)
[2024-06-15] MEDS: Magnesium Sulfate/H2O 2 GM/50 ML PIGGYBACK IV (00:10)
[2024-06-15 00:30] LABS: Band Neutrophils Percent 6 % (3-5); Lymphocytes Absolute Manual 0.2 X10*3/uL (1.2-4.9); Lymphocytes Percent Manual 1 % (20-40); Metamyelocytes Absolute 0.5 X10*3/uL; Metamyelocytes Percent 3 %; Monocytes Absolute Manual 0.3 X10*3/uL (0.1-1.2); Monocytes Percent Manual 2 % (2-11); Neutrophils Absolute Manual 15.8 X10*3/uL (2.0-8.3); Neutrophils Percent Manual 88 % (45-73)
[2024-06-15 00:31] LABS: Acanthocytes 2+ (3-5) /OIF; Platelet Estimate NORMAL (NORMAL); Platelet Morphology Comment NORMAL; RBC Morphology NORMAL
[2024-06-15 00:32] LABS: Ovalocytes 1+ (5-14) /OIF; Schistocytes 1+ (0-2) /OIF; Spherocytes 2+ (3-5) /OIF; Tear Drop Cells 1+ (0-2) /OIF
[2024-06-15 00:33] LABS: Burr Cells 2+ (3-5) /OIF; Polychromasia 1+ (0-2) /OIF; Toxic Granulation PRESENT; Toxic Vacuolation PRESENT
[2024-06-15 01:14] LABS: Glucose, Whole Blood 209 mg/dL (60-115)
[2024-06-15 01:21] VITALS: BP 107/68; PULSE 88; RESP 21; TEMP 35.8; O2SAT 100
--- NOTE | 2024-06-15 01:35 | PC.NURSE ---
PT on EMS stretcher to be transferred to [facility]. Report given to FAISAL Mina at [facility]
[2024-06-15 02:02] VITALS: BP 107/68; PULSE 88; RESP 21; TEMP 35.8; O2SAT 100
== END 2024-06-15 01:35 | disposition short-term general hospital (02) ==
PROVIDERS: Emergency Medicine; Emergency Provider Emergency Medicine; PCP Internal Medicine
DX: D64.9 Anemia, unspecified (principal); R31.9 Hematuria, unspecified; J12.1 Respiratory syncytial virus pneumonia; R09.02 Hypoxemia; R06.02 Shortness of breath; E87.6 Hypokalemia; R07.9 Chest pain, unspecified; R45.1 Restlessness and agitation; E11.10 Type 2 diabetes mellitus with ketoacidosis without coma; E11.65 Type 2 diabetes mellitus with hyperglycemia; E11.22 Type 2 diabetes mellitus with diabetic chronic kidney disease; I12.9 Hypertensive chronic kidney disease with stage 1 through stage 4 chronic kidney disease, or unspecified chronic kidney disease; N18.30 Chronic kidney disease, stage 3 unspecified; N17.9 Acute kidney failure, unspecified; R53.1 Weakness; J45.909 Unspecified asthma, uncomplicated; F17.210 Nicotine dependence, cigarettes, uncomplicated; F11.20 Opioid dependence, uncomplicated; Z86.19 Personal history of other infectious and parasitic diseases; Z03.818 Encounter for observation for suspected exposure to other biological agents ruled out; Z79.899 Other long term (current) drug therapy; Z89.421 Acquired absence of other right toe(s); Z89.422 Acquired absence of other left toe(s)
CPT/HCPCS: 0241U; 31500; 36415; 36430; 36556; 70450; 71045; 71250; 74176; 76705; 80048; 80076; 80307; 81001; 81003; 82272; 82803; 82947; 83605; 83690; 83735; 83880; 84484; 85007; 85027; 85610; 86140; 86850; 86900; 86901; 86923; 87040; 87077; 87086; 87088; 87186; 87205; 93005; 94002; 96361; 96365; 96366; 96367; 96375; 96376; 99285; 99291; 99292; J0330; J0696; J2020; J2251; J2543; J3010; J3475; J3480; J7120; P9016

== ENCOUNTER → 2024-06-14 11:04 | Outpatient (BNV) | payer OTHER, SELFPAY | PROVIDERS: Emergency Provider Emergency Medicine; PCP Internal Medicine; Visit Provider Internal Medicine | DX: R94.31 Abnormal electrocardiogram [ECG] [EKG] (principal) | CPT/HCPCS: 93010 ==

== ENCOUNTER → 2024-06-14 11:05 | Outpatient (BNV) | payer OTHER, SELFPAY | PROVIDERS: Emergency Provider Emergency Medicine; Visit Provider Specialist | DX: R31.9 Hematuria, unspecified (principal); R41.82 Altered mental status, unspecified; K80.20 Calculus of gallbladder without cholecystitis without obstruction; J18.9 Pneumonia, unspecified organism | CPT/HCPCS: 71045; 74176; 76705 ==